=== PATIENT | female | born 1990 | race African-American/Black ===

== ENCOUNTER 2023-04-01 20:21 | Outpatient (REF) | payer OTHER, SELFPAY ==
[2023-04-09 13:08] LABS: Age Gdln ACOG Testing Note (.); HPV Aptima Negative (Negative); IGP, Aptima HPV, rfx 16/18,45 Note (.)
== END 2023-04-01 20:22 | disposition home or self-care (01) ==
LOC: LAB 20:21
PROVIDERS: Visit Provider Obstetrics & Gynecology
DX: Z01.419 Encounter for gynecological examination (general) (routine) without abnormal findings (principal)
CPT/HCPCS: 87624; G0145

== ENCOUNTER 2024-04-06 19:14 | Outpatient (REF) | payer OTHER, SELFPAY | END 2024-04-06 19:15 | disposition home or self-care (01) | LOC: LAB 19:14 | PROVIDERS: Visit Provider Obstetrics & Gynecology | DX: Z01.419 Encounter for gynecological examination (general) (routine) without abnormal findings (principal) | CPT/HCPCS: 87624; 88175 ==

== ENCOUNTER 2025-03-24 14:57 | Outpatient (OUT) | payer OTHER, SELFPAY ==
--- OUTSIDE RECORDS SUMMARY | 2014-11-14 06:30 | XMS_ITS | Continuity of Care Document ---
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 Electrical Engineering Technologist Name Role Phone Yomaira LAUREN Simeon Unavailable Unavailable Procedures Procedure Date IMMUNIZATION ADMIN HEP B VACCINE, ADULT, IM IMMUNIZATION ADMIN HEP B VACCINE, ADULT, IM PREVENTIVE COUNSELING, INDIV IMMUNIZATION ADMIN FLU VAC NO PRSV 4 LUIS 3 YRS+ HEP B VACCINE, ADULT, IM PREVENTIVE COUNSELING, INDIV IMMUNIZATION ADMIN HEP B VACCINE, ADULT, IM HEP B VACCINE, ADULT, IM PREVENTIVE COUNSELING, INDIV IMMUNIZATION ADMIN HEP B VACCINE, ADULT, IM TB INTRADERMAL TEST OFFICE/OUTPATIENT VISIT, EST Contraceptive pills for OFFICE/OUTPATIENT VISIT, EST Contraceptive pills for PREV VISIT, EST, AGE 18-39 SPECIMEN HANDLING THIN PREP PAP W/REFLEX TO ASCUS 009 URINE TEST Contraceptive pills for bc OFFICE/OUTPATIENT VISIT, EST Contraceptive pills for PREV VISIT, NEW, AGE 12-17 URINALYSIS, NONAUTO W/SCOPE SPECIMEN HANDLING Contraceptive pills for bc THIN PREP PAP W/REFLEX TO ASCUS 008 Advance Directives Directive Yes / No Effective Date File Name No Information Encounters Encounter Description Practice Location Reason(s) For Visit Diagnoses Date Provider Providers Copied on Encounter [facility], [address], [place], [id number], [place] tel:[phone] [facility] No Information 5 Viscnelson Freed. [address], [place], [id number], [place]. tel:[phone] PREVENTIVE COUNSELING, [facility] ([place], [place]), [address], [place], [id number], [place] tel:[phone] [facility] Influenza Vaccine 4 Yomaira Freed. [address], [place], [id number], [place]. tel:[phone] PREVENTIVE COUNSELING, [facility] ([place], [place]), [address], [place], [id number], [place] tel:[phone] [facility] No Information 4 Yomaira Freed. [address], [place], [id number], [place]. tel:[phone] PREVENTIVE COUNSELING, [facility] ([place], [place]), [address], [place], [id number], [place] tel:[phone] [facility] Need for prophylactic vaccination and inoculation against viralhepatitis 4 Yomaira Freed. [address], [place], [id number], [place]. tel:[phone] OFFICE/OUTPAT IENT VISIT, [facility], [address], [place], [id number], [place] tel:[phone] [facility] No Information 0 Lamp Martha. [address], [place], [id number], [place]. tel:[phone] OFFICE/OUTPAT IENT VISIT, EST [facility], [address], [place], [id number], [place] tel:[phone] [facility] No Information 2 3-201 0 Visci DO Simeon. [address], [place], [id number], [place]. tel:[phone] PREV VISIT, [facility], AGE 18-39 [facility], [address], [place], [id number], [place] tel:[phone] [facility] No Information 9-200 9 Gomezrobyn SAMANTHA Kelli. [address], [place], [id number]. tel:[phone] OFFICE/OUTPAT IENT VISIT, [facility], [address], [place], [id number], [place] tel:[phone] [facility] No Information 4-200 9 Tyson Montesinos. [address], [place], [id number]. tel:[phone] PREV VISIT, NEW, AGE 12-17 [facility], [address], [place], [id number], [place] tel:[phone] [facility] No Information 8-200 8 No Information Family History Family Member Type Diagnosis Age At Onset No Information Immunizations Vaccine Date Status Comments Hepatitis B, Adult dose administered Sour ce: New Immunization Record Flu (split) (3 yrs or older) administered Note: VIS given. ; Source: New Immunization Record Flu (split) (3 yrs or older) administered Note: VIS given. ; Source: New Immunization Record Flu (split) (3 yrs or older) administered Note: VIS given. ; Source: New Immunization Record Flu (split) (3 yrs or older) administered Note: VIS given. ; Source: New Immunization Record Flu (split) (3 yrs or older) administered Note: VIS given. ; Source: New Immunization Record Flu (split) (3 yrs or older) administered Note: VIS given. ; Source: New Immunization Record Flu (split) (3 yrs or older) administered Note: VIS given. ; Source: New Immunization Record Flu (split) (3 yrs or older) administered Note: VIS given. ; Source: New Immunization Record Flu (split) (3 yrs or older) administered Note: VIS given. ; Source: New Immunization Record Flu (split) (3 yrs or older) administered Note: VIS given. ; Source: New Immunization Record Flu (split) (3 yrs or older) administered Note: VIS given. ; Source: New Immunization Record Flu (split) (3 yrs or older) administered Note: VIS given. ; Source: New Immunization Record Flu (split) (3 yrs or older) administered Note: VIS given. ; Source: New Immunization Record Hep B (adult) administered Note: VIS give n. ; Source: New Immunization Record Hep B (adult) administered Note: Vis give n. ; Source: New Immunization Record Payers Payer name Insurance type Covered republican ID Patsy bell(s) Medical [facility] [id number] [facility] [id number] Medicaid [employer] [id number] Social History Type Description Quantity Date Captured Comments Sex Female Smoking Status No Information Chief Complaint And Reason For Visit No Information Reason For Referral Reason For Referral No Information History Of Present Illness Encounter Date Complaint History Of Prese nt Illness No Information Functional Status Date Functional Assessmen t No Information Instructions Date Instruction Additional Infor mation No Information Assessments Type Assessment Date No Information Patient Care Teams Name Effective Dates (start - stop) Status Members No Information
--- OUTSIDE RECORDS SUMMARY | 2025-03-14 12:00 | XMS_ITS ---
Author Organization [facility] [employer] Address [address] [place] [address] Care Team Providers Care Concrete Floor Installer Name Role Phone Diamond Medel Primary Care Provider REASON FOR VISIT 3 month f/u Medications Medication SIG (Take, Route, Fr equency, Duration) Notes Start Date End Date Status Vyvanse 70 MG 1 capsule in the mor anam Orally Once a day; Duration: 30 days F90.2 03/14/2025 Ac tive metFORMIN HCl 500 MG 1 tablet with a theron l Orally Once a day Active Spironolactone 25 MG 1 tablet Orally Active Encounters Encounter Location Date Provider Diagnosis [facility] [address] [facility] [address] 03/14/2025 Diamond Medel ADHD (attention defi cit hyperactivity disorder), combined type F90.2 and MARKUS (generalized anxiety disorder) F41.1 Assessments Encounter Date Diagnosis (ICD Code) Assessment Notes Treatment Notes Treatment Clinical Notes Section Notes 03/14/2025 ADHD (attention deficit hyperactivity disorder), combined type (ICD-10 - F90.2) . FDA approved stimulant medication for this age group. Discussed/Denies adverse effects from medication including HTN, tachycardia, insomnia, irritability, headache, or decreased appetite. . All relevant and serious adverse effects were discussed. Standard precautions and potential benefits were discussed. Patient/Guardian consented to begin medication/ continue treatment plan . Patient continues to meet criteria for attention deficit hyperactivity disorder. Pt does not meet criteria for bipolar disorder, major depressive disorder, or other persistent mood disorders. Will continue to monitor the patient for presentation of new symptoms or behaviors. . Continue current treatment; tolerating meds well, compliant; call for problems; questions answered satisfactorily, agreeable to treatment plan . GOALS: . Maintain medication regimen _Improve social and interpersonal functioning _Improve attention and or hyperactivity . follow up 3 months . Crisis Intervention plan was discussed and agreed upon. Patient/Guardian will call 911 in case of emergency. Emergency contact information was provided to the patient/guardian. . OARRS reviewed . 03/14/2025 MARKUS (generalized anxiety disorder) (ICD-10 - F41.1) Recommended treatment is: _ FDA approved medication for this age group include Selective Serotonin Reuptake Inhibitors (SSRI) and Selective Norepinephrine Reuptake Inhibitors (SNRI). . Selective serotonin reuptake inhibitors can cause nausea, headache, upset stomach, diarrhea, constipation, anxiety, irritability, and sexual dysfunction. . Please monitor for worsening of symptoms, especially suicidal ideations or morbid thoughts, and call office and or go to the emergency department immediately. Pt does not endorse exhibiting symptoms aligning with zac. . The patient verbalizes understanding with all questions answered thoroughly and is in agreement with treatment plan. . Continue current treatment plan Patient/Guardian will call sooner if symptoms worsen. Patient understands to go to ER if needed if symptoms become severe. Crisis Intervention plan was discussed and agreed upon. Patient/Guardian will call 911 in case of emergency. Emergency contact information was provided to the patient/guardian. Plan Of Treatment Medication Medication Name Sig Start Date Stop Date Notes Vyvanse 70 MG 1 capsule in the mor anam Orally Once a day; Duration: 30 days 03/14/2025 F90.2 busPIRone HCl 15 MG 1 tablet Orally Twice a day Treatment Notes Assessment Notes ADHD (attention deficit hype ractivity disorder), combined type . FDA approved stimulant medication for this age group. Discussed/Denies adverse effects from medication including HTN, tachycardia, insomnia, irritability, headache, or decreased appetite. . All relevant and serious adverse effects were discussed. Standard precautions and potential benefits were discussed. Patient/Guardian consented to begin medication/ continue treatment plan . Patient continues to meet criteria for attention deficit hyperactivity disorder. Pt does not meet criteria for bipolar disorder, major depressive disorder, or other persistent mood disorders. Will continue to monitor the patient for presentation of new symptoms or behaviors. . Continue current treatment; tolerating meds well, compliant; call for problems; questions answered satisfactorily, agreeable to treatment plan . GOALS: . Maintain medication regimen _Improve social and interpersonal functioning _Improve attention and or hyperactivity . follow up 3 months . Crisis Intervention plan was discussed and agreed upon. Patient/Guardian will call 911 in case of emergency. Emergency contact information was provided to the patient/guardian. . OARRS reviewed . MARKUS (generalized anxiety disorder) Recommended treatment is: _ FDA approved medication for this age group include Selective Serotonin Reuptake Inhibitors (SSRI) and Selective Norepinephrine Reuptake Inhibitors (SNRI). . Selective serotonin reuptake inhibitors can cause nausea, headache, upset stomach, diarrhea, constipation, anxiety, irritability, and sexual dysfunction. . Please monitor for worsening of symptoms, especially suicidal ideations or morbid thoughts, and call office and or go to the emergency department immediately. Pt does not endorse exhibiting symptoms aligning with zac. . The patient verbalizes understanding with all questions answered thoroughly and is in agreement with treatment plan. . Continue current treatment plan Patient/Guardian will call sooner if symptoms worsen. Patient understands to go to ER if needed if symptoms become severe. Crisis Intervention plan was discussed and agreed upon. Patient/Guardian will call 911 in case of emergency. Emergency contact information was provided to the patient/guardian. Next Appt Details Follow Up: 3 Months, Reason: Progress Notes * BO MENDEZB:1990 ( 34 yo F)Acc No.[id number]:03/14/2025 Behavioral Health Patient: GALLITO LEMONS Appointment Provider: Natalya Medel :1990 A ge:34 Y S ex:Female Date:03/14/2025 Address:[address] [place], [place] [id number] Subjective: * Chief Complaints: * 3 month f/u * HPI: C onstitutional: . Patient is here for a follow up visit today. . Patient is doing well on current treatment plan. . Stimulant medication continues to significantly improve symptoms of inattention and hyperactivity. Pt is able to maintain mental attention without need for redirection, can multi task, remain organized, and avoid procrastination. Pt is able to remain seated especially when being seated is necessary at home and work, limited fidgetiness, and avoid blurting out and interrupting others. . Pt would like to continue current treatment plan. . Mood is good daily, energy and motivation intact, irritability is not pervasive, sleeps well through the night. . Anxiety symptoms that have significantly improved include having excessive worry and difficulty controlling worry, generalized apprehensive expectation. Symptoms associated include elevated heart rate, restlessness, chest pain, muscle tension in neck and shoulders. Anxiety is not associated with unstable mood episodes. . . Denies suicidal or homicidal ideation or plan. No morbid thoughts. Interpersonal issues discussed. . Support provided. * ROS: C ONSTITUTIONAL: No fever, chills, sweats, weakness SKIN: No jaundice, rash, lesions, petechiae GASTROINTESTINAL: No nausea, vomiting, diarrhea, or GI bleeding MUSCULOSKELETAL: No muscle pain or weakness NEUROLOGIC: No headache, dizziness, numbness, or weakness . * Medical History: * Surgical History: * Hospitalization/Major Diagno stic Procedure: * Medications: T akingmetFORMIN HCl 500 MG Tablet 1 tablet with a meal Orally Once a day Spironolactone 25 MG Tablet 1 tablet Orally busPIRone HCl 15 MG Tablet 1 tablet Orally Twice a day Vyvanse 70 MG Capsule 1 capsule in the morning Orally Once a day , Notes to Pharmacist: F90.2Taking metFORMIN HCl 500 MG Tablet 1 tablet with a meal Orally Once a day Taking Spironolactone 25 MG Tablet 1 tablet Orally Taking busPIRone HCl 15 MG Tablet 1 tablet Orally Twice a day Taking Vyvanse 70 MG Capsule 1 capsule in the morning Orally Once a day , Notes to Pharmacist: F90.2 Objective: * Vitals: * Examination: G eneral Examination: . MENTAL STATUS EXAM: . Appearance: Appropriately dressed and groomed, good eye contact, cooperative, pleasant Behavior/Motor Activity: Normal Gait/Station: Within normal limits Speech: Normal Mood: Good Affect: Full Thought processes/Associations: Logical and goal directed Thought Content: Non-psychotic Cognition/Attention/Memory/Concentration: Alert and oriented x 4; grossly intact attention; memory-recent/remote judged adequate by interviewer Insight: Good Judgement: Good language: Within normal limits Fund of Knowledge: Adequate . . Assessment: * Assessment: 1. A DHD (attention deficit hyperactivity disorder), combined type - F90.2 (Primary) 2 . G AD (generalized anxiety disorder) - F41.1 Plan: * Treatment: 2. G AD (generalized anxiety disorder) Stop busPIRone HCl Tablet, 15 MG, 1 tablet, Orally, Twice a day. Notes: Recommended treatment is: _ FDA approved medication for this age group include Selective Serotonin Reuptake Inhibitors (SSRI) and Selective Norepinephrine Reuptake Inhibitors (SNRI). . Selective serotonin reuptake inhibitors can cause nausea, headache, upset stomach, diarrhea, constipation, anxiety, irritability, and sexual dysfunction. . Please monitor for worsening of symptoms, especially suicidal ideations or morbid thoughts, and call office and or go to the emergency department immediately. Pt does not endorse exhibiting symptoms aligning with zac. . The patient verbalizes understanding with all questions answered thoroughly and is in agreement with treatment plan. . Continue current treatment plan Patient/Guardian will call sooner if symptoms worsen. Patient understands to go to ER if needed if symptoms become severe. Crisis Intervention plan was discussed and agreed upon. Patient/Guardian will call 911 in case of emergency. Emergency contact information was provided to the patient/guardian. * Procedure Codes: * Follow Up: 3 Months * Images: * Sign off status: Completed true * Appointment Provider: Natalya Medel Date: 0 03/14/2025 Generated for Nicole lopez/Jayla/Pauline on: 03/24/2025 10:43 AM EDT History and Physical Notes * Examination Category Sub-Category Detail Notes Category Not es General Examination . MENTAL STATUS EXAM: . Appearance: Appropriately dressed and groomed, good eye contact, cooperative, pleasant Behavior/Motor Activity: Normal Gait/Station: Within normal limits BH Speech: Normal Mood: Good Affect: Full Thought processes/Associations: Logical and goal directed Thought Content: Non-psychotic Cognition/Attention/Memory/Con centration: Alert and oriented x 4; grossly intact attention; memory-recent/remote judged adequate by interviewer Insight: Good Judgement: Good BH language: Within normal limits Fund of Knowledge: Adequate .
--- OUTSIDE RECORDS SUMMARY | 2025-03-16 05:45 | XMS_ITS | Continuity of Care Document ---
Author Organization [facility] Address [address] [place] [address] Phone Care Team Providers Care Housekeeper/Laundry Assistant Name Role Phone Brianne Davila DNP Primary Care Provider Aydee Nieves APRN Attending Provider [phone] Hamlet Worley APRN Attending Provider [phone] NO FAMILY, PHYSICIAN Primary Care Provider Unava ilJanice Dominguez MD Attending Provider [phone] Care Teams Patient Care Team Team Status: Active Member Role Status Dates PHYSICIAN NO FAMILY Primary Care Provider Active Visit Care Team Team Status: Inactive Member Role Status Dates Brianne Davila DNP Primary Care Provider Active Start: February 23, 2025 End: February 23, 2025 Aydee Nieves APRN Attending Provider Active Sta rt: February 23, 2025 End: February 23, 2025 Visit Care Team Team Status: Inactive Member Role Status Dates Hamlet Worley APRN Attending Provider Active Start: March 15, 2025 End: March 15, 2025 PHYSICIAN NO FAMILY Primary Care Provider Active Start: March 15, 2025 End: March 15, 2025 Visit Care Team Team Status: Inactive Member Role Status Dates PHYSICIAN NO FAMILY Primary Care Provider Active Start: March 15, 2025 End: March 15, 2025 Hamlet Worley APRN Attending Provider Active Start: March 15, 2025 End: March 15, 2025 Patient Care Team Team Status: Inactive Member Role Status Dates PHYSICIAN NO FAMILY Primary Care Provider Active Start: March 16, 2025 End: March 16, 2025 Janice Escobar MD Attending Provider Active Start: March 16, 2025 End: March 16, 2025 Chief Complaint and Reason for Visit Chief Complaint Admit Date poss uti February 23, 2025 3:33 pm right middle finger injury March 15 1:34pm T14.90XA March 15, 2025 1:56 pm UC 250 RT MIDDLE FINGER INJURY WX March 012024 9:01am Reason for Visit Admit Date Flank pain February 23, 2025 3:33 pm Finger tendinitis March 15, 2025 1:34 pm Other sprain of right middle finger, ini tial encounter March 16, 2025 9:01am Allergies, Adverse Reactions, Alerts Allergen Type Severity Reaction Last Updated Verified Status minocycline Allergy Unknown Hives March 15, 2025 1:41pm Yes Active sulfamethoxazole Allergy Unknown Hives March 1:41pm Yes Active trimethoprim Allergy Unknown Hives March 15, 2025 1:41pm Yes Active Sulfa (Sulfonamide Antibiotics) Allergy Unknown Unknown Reaction March 15, 2025 1:41pm Yes Active Social History Smoking Status Status Start Date End Date Date of Observa tion Never smoked tobacco (finding) November 10, 2023 10:45pm Observation Status Observation Response Date of Response Legal Sex Female (finding) Sex Assigned At Female November Family History Relationship Condition Age at Onset Recorded Date/T elian mother Anemia Unknown Venous thrombosis Unknown grandparent History of stroke Unknown Hypertension Unknown Problems Active Problems Medical Problem Onset Date Status Comments Right carpal tunnel syndrome Unknown Active UTI (urinary tract infection) Unknown Active Abscess of Bartholin's gland Unknown Active Hematoma of right lower leg Unknown Active Cellulitis of left thigh Unknown Active Hx of hypoglycemia Unknown Active Rectal injury Unknown Active Status post Re ctal injury repair. Jose drain in place Feeling light headed Unknown Active Acne Unknown Active Inflammation Unknown Active Abscess of right genital labia Unknown Active Status post Right Bartholin Gland Excision complicated with Rectal Perforation/Injury. Pyelonephritis Unknown Active Hand paresthesia Unknown Active Obese body habitus Unknown Active Other sprain of right middle finger, initial encounter Unknown Active Inactive/Resolved Problems Medical Problem Onset Date Status Comments Pain Unknown Resolved H/O abdominoplasty Unknown Resolved Surgical wound, non healing Unknown Resolved Acute lumbar myofascial strain Unknown Resolved Medications Medication Status Dose Units Route Directions Qty Days St art Date Stop Date End Date Instructions Adherence Cyclobenzap rine 10 mg tablet Discont inued 10 MG PO Three times daily as needed for Muscle Spasm November 21, 2023 9:37am February 23, 2025 3:37p m Cephalexin (Keflex) 500 mg capsule Discont inued 500 MG PO Three times daily 30 2016 12:00a m [facility]2016 12:00 am [facility] 2016 6:54a m space evenly during waking hours Hydrocodone -Acetaminop hen (Convoy) 5-325 mg tablet Discont inued 1 TAB PO every 6 to 8 hours as needed for pain 20 2016 [facility] 2016 11:17 am Amoxicillin -Pot Clavulanate (Augmentin) 875-125 mg tablet Discont inued 1 TAB PO Twice daily 20 2016 12:00a m [facility]2016 11:17 am Oxycodone-A cetaminophe n (Percocet) 5-325 mg tablet Discont inued 1 TAB PO EVERY 4-6 HOURS as needed for pain 20 2016 12:00a m [facility]2016 11:17 am Etonogestre l (Nexplanon) 68 mg Implant Discont inued 68 IMPLAN T SUBDER MAL Once 2016 12:00a m Aug[facility] 2019 10:32 pm Acetaminoph en (Mapap Extra Strength) 500 mg Tablet Discont inued 1000 MG PO Every 6 hours as needed for Headache 30 2016 12:00a m December 07, 2017 2:03p m Docusate Sodium 100 mg Capsule Discont inued 100 MG PO Daily at bedtime as needed for Constipatio n 30 2016 12:00a m December 29, 2017 4:37p m Metronidazo le 500 mg tablet Discont inued 500 MG PO Twice daily 28 2016 12:00a m [facility] 2016 12:00 am [facility] 2016 12:02 am Cephalexin (Keflex) 500 mg capsule Discont inued 500 MG PO Q8H 42 14 December 29, 2017 12:00a m January 11, 2018 12:00 am January 07, 2018 10:04 am Norgestimat e-Ethinyl Estradiol 0.25-35 mg-mcg tablet Discont inued 1 TAB PO Daily May 01, 2020 12:00a m January 13, 2023 8:43a m Spironolact one 50 mg tablet Discont inued 50 MG PO Daily May 01, 2020 12:00a m March 16, 2025 9:27a m Buspirone 15 mg tablet Discont inued 15 MG PO Twice daily May 01, 2020 12:00a m February 23, 2025 3:37p m Lisdexamfet amine (Vyvanse) 60 mg capsule Discont inued 60 MG PO Daily May 01, 2020 12:00a m March 16, 2025 9:27a m Phentermine (Adipex-P) 37.5 mg Capsule Discont inued 37.5 MG PO daily December 07, 2017 12:00a m January 15, 2019 11:34 am Cephalexin (Keflex) 500 mg capsule Discont inued 1000 MG PO Twice daily 40 10 December 07, 2017 12:00a m 2017 12:00 am December 17, 2017 12:01 am Hydrocodone -Acetaminop hen (Convoy) 5-325 mg tablet Discont inued 1 - 2 TAB PO EVERY 4-6 HOURS as needed for pain December 07, 2017 December 29, 2017 4:37p m Ondansetron (Zofran Odt) 4 mg tablet,disi ntegrating Discont inued 4 MG PO Q8H as needed for nausea and vomiting December 07, 2017 12:00a m December 29, 2017 4:37p m Bupropion Hcl (Wellbutrin Sr) 150 mg tablet sustained-r elease 12 hr Discont inued 300 MG PO Daily January 15, 2019 12:00a m November 10, 2023 10:18 pm Naltrexone 50 mg tablet Discont inued 0.5 TAB PO Daily 2019 1:00am Augus t 2019 10:32 pm Cephalexin 500 mg capsule Discont inued 500 MG PO Twice daily 28 January 13, 2023 12:00a m Febru wanda 2023 1:58p m Cyclobenzap rine 10 mg tablet Discont inued 10 MG PO Three times daily as needed for Muscle Spasm November 10, 2023 12:00a m November 21, 2023 9:37a m Ibuprofen 800 mg tablet Discont inued 800 MG PO Three times daily as needed for Pain November 10, 2023 12:00a m March 16, 2025 9:27a m Semaglutide (Weight Loss) (Wegovy) 0.5 mg/0.5 mL pen injector Discont inued 0.5 MG SUBCUT every week April 29, 2024 12:00a m March 16, 2025 9:27a m administer weeks 5 through 8 of therapy Cephalexin 500 mg capsule Discont inued 500 MG PO Three times daily 21 7 April 29, 2024 12:00a m March 16, 2025 9:27a m Lisdexamfet amine 70 mg capsule Active MG PO March 16, 2025 12:00a m Complies with drug therapy Prednisone 5 mg tablet Active 5 MG PO daily 19 March 16, 2025 12:00a m Take 4 pills by mouth x2 days, take 3 pills by mouth x2 days, take 2 pills by mouth x2 days, take 1 pill by mouth x1 day. Complies with drug therapy Penicillin V Potassium 500 mg tablet Discont inued 500 MG PO Twice daily 20 2023 1:00am November 10, 2023 10:18 pm Cephalexin 500 mg capsule Discont inued 500 MG PO Every 12 hours 20 2023 1:00am November 10, 2023 10:18 pm Immunizations Immunization Event Date Not Given Reason Dose Number Horse Race Timer Lot Number Vaccine Information Statement (VIS) Detail Administration Location Human Papillomavirus Vaccine, quadrivalent September 11, 2009 Human Papillomavirus Vaccine, quadrivalent November 13, 2009 Human Papillomavirus Vaccine, quadrivalent March 21, 2010 Procedures Procedure Date Performed Status XR finger RT 3rd digit March 15, 2025 2:19pm co mpleted Relevant Diagnostic Tests and/or Laboratory Data Laboratory Results Test Collection Date/Time Result Date/Time Result Interpretation Reference Range Result Comment Performing Site Urine Color February 23, 2025 3:40pm February 23, 2025 3:54pm CAM Urine Appearance February 23, 2025 3:40pm February 23, 2025 3:54pm DARK Urine Specific [place] February 23, 2025 3:40pm February 23, 2025 3:54pm 1.020 Urine pH February 23, 2025 3:40pm February 23, 2025 3:54pm 6.0 Urine Leukocyte Esterase February 23, 2025 3:40pm February 23, 2025 3:54pm TRACE Urine Nitrite February 23, 2025 3:40pm February 23, 2025 3:54pm Negative Urine Protein February 23, 2025 3:40pm February 23, 2025 3:54pm 100 Urine Glucose (UA) February 23, 2025 3:40pm February 23, 2025 3:54pm NEGATIVE Urine Ketones February 23, 2025 3:40pm February 23, 2025 3:54pm NEGATIVE Urine Urobilinoge n February 23, 2025 3:40pm February 23, 2025 3:54pm 1.0 Urine Bilirubin February 23, 2025 3:40pm February 23, 2025 3:54pm SMALL Urine Occult Blood February 23, 2025 3:40pm February 23, 2025 3:54pm TRACE Diagnostic Imaging Reports Author Maury Devi [facility] Authored March 15, 2025 2:33 pm Report Dictated Date/Time Dictated By Status Radiology Report March 15, 2025 2:33pm Maury Devi , DO costa [facility] [place] [address] XRay Report Signed Patient: Nan Alcocer MR#: [id number] : 1990 Acct:[id number] Age/Sex: 34 / F ADM Date: 5 Loc: [id number] Room: Type: [facility] Attending Dr: Hamlet Worley APRN Copies to: Hamlet Worley APRN~ Ordering Provider: Hamlet Worley APRN Date of Service: 03/15/25 XR/XR finger RT 3rd digit: T14.90XA - Injury, unspecified, initial encounter 3 views third digit right hand plain film COMPARISON: None HISTORY: Right middle finger injury one month ago. Inability to straighten ACUTE FINDINGS: None DEGENERATIVE CHANGE: Unremarkable SOFT TISSUE FINDINGS: Unremarkable JOINT EFFUSION: None POSTOP CHANGES: None BONY MINERALIZATION: Adequate XR/XR finger RT 3rd digit IMPRESSION: No acute displaced fracture Impression dictated by: Maury Devi M.D. 03/15/2025 2:34 PM Dictation Location: [place] [address] Transcribed By: [facility] 03/15/25 1434 Dictated By: Maury Devi DO 03/15/25 1433 Signed By: <Electronically signed by Maury Devi DO in OV> 03/15/25 143 Vital Signs Vital Reading Result Reference Range Collection Date/Time Body Temperature 100.1 [degF] 97.6-99.0 February 23, 2025 4:23pm Heart Rate 95 /min 60-100 February 23, 2025 3:43pm Oxygen saturation by Pulse oximetry 98 % 95-100 February 23, 2025 3:43 pm BP Systolic 126 mm[Hg] 100-140 February 23, 2025 3:43pm BP Diastolic 80 mm[Hg] 60-100 February 23, 2025 3:43pm Body Temperature 98.8 [degF] 97.6-99.0 March 15, 2025 1:37pm Heart Rate 71 /min 60-100 March 15, 2025 1:37pm Oxygen saturation by Pulse oximetry 99 % 95-100 March 15, 2025 1:37 pm BP Systolic 112 mm[Hg] 100-140 March 15, 2025 1:37pm BP Diastolic 74 mm[Hg] 60-100 March 15, 2025 1:37pm Advance Directives Advance Directive Response Recorded Date/ Time Advance Directives No April 28, 2017 11:41am Insurance Providers Guarantor Nan Alcocer Address [address] [address] Contact Info. Home Phone: Payer Policy Id Subscriber's Name Subscriber Id Effectiv e Date Expiration Date MMO [id number] Nan Alcocer [id number] [place] Ad[employer]age [id number] Nan Alcocer [id number] [employer] [id number] Nan Alcocer [id number] HCAP/HFA/FAP Active [id number] Nan Alcocer [id number] 2019 Encounters Encounter Location(s) Arrival/Admit Date Discharge/Depart Date Provider(s) Departed Physician/Prov ider Office Visit -[facility] [place] February 23, 2025 3:33pm February 23, 2025 4:22pm Kat Taylor APRN Departed Physician/Prov ider Office Visit -[facility] [place] March 15, 2025 1:34pm March 15, 2025 2:50pm Hamlet Worley APRN Departed Clinical -[facility] March 15, 2025 1:56pm March 15, 2025 1:57pm Hamlet Worley APRN Departed Physician/Prov ider Office Visit -[facility] March 16, 2025 9:01am March 16, 2025 9:44am Janice Escobar MD Recent Diagnosis Onset Date Admit Date Flank pain Unknown February 23, 2025 3:33pm Finger tendinitis Unknown March 15 1:34pm Other sprain of right middle finger, initial encounter Unknown March 16, 2025 9:01am Assessments Diagnosis Onset Date Resolution Status Admit Date Flank pain noneactive February 23 3:33pm Finger tendinitis noneactive March 152024 1:34pm Other sprain of right middle finger, initial encounter acute March 012024 9:01am Plan of Treatment Author Hamlet Worley [facility] Authored March 15, 2025 2:51 pm Xray finger unremarkable. [place] ggest follow up with ortho. Injury over one month ago, wore splint previously. Author Yu Mitchell [facility] Authored March 16, 2025 9:44 am Prescription given for oral Prednisone 7 day taper and patient instructed on the use of topical Voltaren Gel and oral NSAIDs. Patient also provided with edema sleeves and order for occupational therapy Author Aydee Nieves [facility] Authored February 23, 2025 10:3 9pm Patient c/o RUQ pain that pedraza s spread to LUQ and across back. She states overall unwell feeling and hot flashes, does not have thermometer. Afebrile on arrival however on exam tactically felt warm and temp was rechecked at 100.1. Patient states she took Tylenol approx 3 hours prior. UA dip in office shows dark, cam colored urine with trace leuks and blood. Given systemic symptoms, CVA tenderness, recommend further eval by ER. C/o pyelonephritis. Patient plans to go to [facility] ER directly from . Patient left in stable condition. Future Tests Future scheduled test information is unavailable Pending Tests Pending diagnostic test information is unavailable Future Visits Future appointment information is unavailable Referrals to Other Providers Referral information is unavailable Future Procedures Future procedure information is unavailable Future Medications Future medication information is unavailable Patient Instructions Patient instructions are unavailable
--- OUTSIDE RECORDS SUMMARY | 2025-03-24 10:44 | XMS_ITS | Encounter Summary ---
Author Organization [facility] Address [address] [place] [address] Care Team Providers Care Grant Coordinator Name Role Phone Brianne Davila INFUSION RN Primary Care Provider Encounter Details Date Type Department Care Team (Late st Contact Info) Description 04/09/2024 Abstract [facility] [address] [address] Darcie Jimenez LPN Social History Tobacco Use Types Packs/Day Years Used Date Smoking Tobacco: Never Smokeless Tobacco: Never Alcohol Use Standard Drinks/Week Comments Yes 0 (1 standard drink = 0.6 oz pur e alcohol) Social Comments No Sex and Gender Information Value Date Recorded Sex Assigned at Female 04/01/2023 9:38 AM EDT Legal Sex Female 6:59 PM EDT Gender Identity Female 04/01/2023 9:38 AM EDT Sexual Orientation Not on file 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
--- OUTSIDE RECORDS SUMMARY | 2025-03-24 10:44 | XMS_ITS | Encounter Summary ---
Author Organization [facility] Address [address] [place] [address] Care Team Providers Care Gun Profiler Name Role Phone Valerio Batres DO Primary Care Provider [phone] Source Comments In the event this information is protected by the Federal Confidentiality of Alcohol and Drug AbusePatient Records regulations: The Federal rules restrict any use of the information to criminally investigate or prosecute any alcohol or drug abuse patient.[facility] Encounter Details Date Type Department Care Team (Late st Contact Info) Description 07/17/2017 Patient Msg Medical Records [address] [place] [address] Provider, [facility] Medical Education Program Social History Tobacco Use Types Packs/Day Years Used Date Smoking Tobacco: Some Days Smokeless Tobacco: Never Alcohol Use Standard Drinks/Week Comments Yes 0 (1 standard drink = 0.6 oz pur e alcohol) 2 drinks per week Comments No Sex and Gender Information Value Date Recorded Sex Assigned at Not on file Legal Sex Female 11:27 AM EDT Gender Identity Not on file Sexual Orientation Not on file documented as of this encounter Plan of Treatment Not on file documented as of this encounter Visit Diagnoses Not on filedocumented in this encounter Care Teams Gun Profiler Relationship Specialty Start Date End Date Valerio Batres DO PCP - General Family Medicine 05/12/17 documented as of this encounter
--- OUTSIDE RECORDS SUMMARY | 2025-03-24 10:44 | XMS_ITS | Encounter Summary ---
Author Organization [facility] Address [address] [place] [address] Care Team Providers Care Film Developing Machine Operator Name Role Phone Brianne Davila DATABASE TECHNICIAN Primary Care Provider Encounter Details Date Type Department Care Team (Late st Contact Info) Description 03/01/2025 Abstract [facility] [address] [facility] [address] [address] Darcie Jimenez LPN Social History Tobacco [...] Industry 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 Job End Date [employer] works at [employer] Not on file Not on file Not on file documented as of this encounter Plan of Treatment Upcoming Encounters Date Type Department Care Team (Late st Contact Info) Description 04/18/2025 11:00 AM EDT Office Visit [facility] [address] [place] [address] Zaki Camacho DO [address] [place], [place] [id number] documented as of this encounter Visit Diagnoses Not on filedocumented in this encounter Care Teams Film Developing Machine Operator Relationship Specialty Start Date End Date Brianne Davila NP PCP - General 04/01/23 documented as of this encounter
--- OUTSIDE RECORDS SUMMARY | 2025-03-24 10:44 | XMS_ITS | Encounter Summary ---
Author Organization [facility] Address [address] 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
--- OUTSIDE RECORDS SUMMARY | 2025-03-24 10:44 | XMS_ITS | Clinical Summary ---
Author Organization [facility] Address [address] [place] [address] Care Team Providers Care Supervisor Accounting Clerks Name Role Phone GiselValerio Timothy DANG Primary Care Provider [phone] Allergies Active Allergy Reactions Criticality Noted Date Comments Sulfamethoxazole-Trimethopr im Hives 05/12/2017 Minocycline Unknown 05/13/2017 develop pseudotumor behind ocular lens Trimethoprim Hives 01/15/2019 Medications ibuprofen (MOTRIN) 600 mg tablet Take 1 tablet by mouth every 6 hours as needed for Pain. 120 tablet 1 05/13/2017 Active lisdexamfetamine dimesylate (VYVANSE ORAL) Take 1 tablet by mouth once daily. Active buPROPion XL (WELLBUTRIN XL) 150 mg 24 hr tablet Take 150 mg by mouth once daily. 04/06/2020 Active busPIRone (BUSPAR) 15 mg tablet Take 15 mg by mouth twice daily. 04/12/2020 Active norgestimate 0.25 mg-ethinyl estradiol 35 mcg (SPRINTEC, ORTHO-CYCLEN) 0.25-35 mg-mcg per tablet Take 1 tablet by mouth once daily. 04/06/2020 Active spironolactone (ALDACTONE) 50 mg tablet Take 50 mg by mouth once daily. 04/10/2020 Active Active Problems Problem Noted Date Diagnosed Date Rectal injury 05/12/2017 Overview (05/12/2017): Added automatically from request for surgery [id number] Social History Tobacco Use Types Packs/Day Years Used Date Smoking Tobacco: Some Days Smokeless Tobacco: Never Alcohol Use Standard Drinks/Week Comments Yes 0 (1 standard drink = 0.6 oz pur e alcohol) 2 drinks per week Area Deprivation Index Answer Date Jean Marie rded National Score (1-100), lower number is lower ri sk 74 03/15/2025 State Score (1-10), lower number is lower risk 6 03/15/2025 Data from: https://www.neighborhoodatlas.medicine.[facility]/. Last address used for calculation [address] 03/15/2025 Comments No Sex and Gender Information Value Date Recorded Sex Assigned at Not on file Legal Sex Female 11:27 AM EDT Gender Identity Not on file Sexual Orientation Not on file Last Filed Vital Signs Vital Sign Reading Time Taken Comments Blood Pressure 118/76 08/11/2017 12:35 PM EST Pulse 75 08/11/2017 12:35 PM EST Temperature 36.7 C (98.1 F) 08/11/2017 12:05 PM EST Respiratory Rate 16 08/11/2017 12:35 PM EST Oxygen Saturation 99% 08/11/2017 12:35 PM EST Inhaled Oxygen Concentration - - Weight 108 kg (238 lb) 09/18/2017 2:16 PM EST Height 172.7 cm (5' 8 ) 09/18/2017 2:16 PM EST Body Mass Index 36.19 09/18/2017 2:16 PM EST Plan of Treatment Health Maintenance Due Date Last Done Comments Anxiety Screening 2008 Depression Screening 2008 HIV Screening 2008 Hepatitis C Screening 2008 DTaP,Tdap,Td Vaccine (1 - Tdap) 2009 Hepatitis B Vaccine (1 of 3 - 19+ 3-dose series) 12/16 Cervical Cancer Screening 12/17/2011 Influenza Vaccine (#1) 2025 Insurance [facility] [employer] Care Teams Supervisor Accounting Clerks Relationship Specialty Start Date End Date Valerio Batres DO PCP - General Family Medicine 05/12/17
--- OUTSIDE RECORDS SUMMARY | 2025-03-24 10:44 | XMS_ITS | Encounter Summary ---
Author Organization [facility] Address [address] [facility] [place] [address] Care Team Providers Care Transmission Design Engineer Name Role Phone Brianne Davila MEDICAL OFFICE TECHNOLOGIST Primary Care Provider [phone] Encounter Details Date Type Department Care Team (Late st Contact Info) Description 01/11/2025 Abstract [facility] 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
--- OUTSIDE RECORDS SUMMARY | 2025-03-24 10:44 | XMS_ITS | Encounter Summary ---
Author Organization [facility] Address [address] [facility] [place] [address] Care Team Providers Care Wash House Supervisor Name Role Phone Brianne Davila NP Primary Care Provider Encounter Details Date Type Department Care Team (Late st Contact Info) Description 03/23/2025 Telephone [facility] OB [address] [place] [phone] Citlalli Contreras MA [address] [place] [place] 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 Pt was called and asked if she had her labs drawn that is required to do every 3 months in order to stay on this medication. Pt stated she didn't and had forgotten. I advised pt in order to get a refill the labs need to be done first and reviewed by doctor to determine a refill. PVU. Lab order was sent out on 03/01/2025 with her order enclosed. Pt states she will try to go tomorrow. Pt states she is in [place] and if she can have them drawn there? I advised pt she can have it drawn anywhere she wants however, they need to know to fax results to our office. And to be aware we do not always get results back in a timely manner from other hospitals. PVU. documented in this encounter Plan of Treatment Upcoming Encounters Date Type Department Care Team (Late st Contact Info) Description 04/18/2025 11:00 AM EDT Office Visit [facility] [address] [place] [id number] Zaki Camacho, DO [address] [place] [address] documented as of this encounter Visit Diagnoses Not on filedocumented in this encounter Care Teams Wash House Supervisor Relationship Specialty Start Date End Date Brianne Davila NP PCP - General 04/01/23 documented as of this encounter
--- OUTSIDE RECORDS SUMMARY | 2025-03-24 10:44 | XMS_ITS | Encounter Summary ---
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
--- OUTSIDE RECORDS SUMMARY | 2025-03-24 10:44 | XMS_ITS | Encounter Summary ---
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
--- OUTSIDE RECORDS SUMMARY | 2025-03-24 10:44 | XMS_ITS | Clinical Summary ---
Author Organization [facility] Address [address] [place] [address] Care Team Providers Care Accounting Officer Name Role Phone Brianne Davila NP Primary Care Provider [phone] Allergies Active Allergy Reactions Criticality Noted Date Comments Minocycline Headache 03/31/2023 Sulfamethoxazole-Trimethoprim Unknown 2022 Trimethoprim Hives 01/15/2019 Medications busPIRone (Buspar) 15 MG tablet Take 7.5 mg by mouth in the morning and 7.5 mg before bedtime. Active ketoconazole (NIZOral) 2 % shampoo Apply topically 2 (two) times a week 3 Active Vyvanse 70 MG capsule Take 70 mg by mouth 1 (one) time each day at the same time 3 Active spironolactone (Aldactone) 25 MG tablet Take by mouth 1 (one) time Active tretinoin (Retin-A) 0.1 % cream Apply 0.1 g topically at bedtime 3 Active metFORMIN XR (Glucophage-XR) 500 MG 24 hr tabletIndications: Irregular menstrual bleeding Take 1 tablet (500 mg) by mouth Daily 30 tablet 11 4 04/01/20 25 Active Levonorgestrel-Eth inyl Estrad (Tyblume) 0.1-20 MG-MCG chewable tabletIndications: Encounter for other general counseling or advice on contraception Chew 1 tablet Daily 28 tablet 11 5 Active Active Problems Problem Noted Date Diagnosed Date Anemia affecting ([facility]) 03/31/2023 Candidiasis 03/31/2023 Cervical strain 03/31/2023 Chronic otitis externa of left ear 03/31/2023 Dichorionic diamniotic twin in second trimester ([facility]) 03/31/2023 Irregular menstrual cycle 03/31/2023 Lumbosacral strain 03/31/2023 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 Myopia of both eyes 03/31/2023 Weight gain Encounters Date Type Department Care Team Description 03/23/20[address] [facility] [address] [place] [address] Citlalli Contreras MA 03/01/2025 Abstract [facility] [address] [place] [address] Darcie Jimenez, GREGG 03/01/[address] [facility] [address] [place] [address] Zaki Camacho, 03/01/2025 Orders Only [facility] [address] [place] [address] Zaki Camacho, Encounter for long-term (current) use of medications 02/04/2025 Abstract [facility] [address] [place] [address] Zaki Camacho, 02/02/20[address] [facility] [address] [place] [address] Zaki Camacho, 01/11/2025 Abstract [facility] [address] [place] [address] Darcie Jimenez, GREGG 01/11/20[address] [facility] [address] [place] [address] Zaki Camacho, 12/30/2024 10:20 AM EDT Office Visit [facility] [address] [place] [address] Zaki Camacho, DO Encounter for other general counseling or advice on contraception 12/30/2024 Bamboo flowsheet [facility] [address] [facility] [place] [address] Zaki Camacho DO 12/30/2024 Travel from Last 3 Months Family History Medical History Relation Name Comments No Known Problems Daughter Hypertension Maternal Grandmother Reid Anemia Mother Cystic fibrosis Other Mother 1st cousin(twins) No Known Problems Son 1 No Known Problems Son 2 Relation Name Status Comments Brother (2) Daughter Alive Father Alive Maternal Grandmother Reid Mother Alive Other Mother 1st cousin(twins) Sister (4) Son 1 Alive Son 2 Alive Social History Tobacco Use Types Packs/Day Years Used Date Smoking Tobacco: Never Smokeless Tobacco: Never Tobacco Cessation:Counseling Given: Not Answered Alcohol Use Standard Drinks/Week Comments Yes 0 (1 standard drink = 0.6 oz pur e alcohol) Social Comments No Sex and Gender Information Value Date Recorded Sex Assigned at Female 04/01/2023 9:38 AM EDT Legal Sex Female 6:59 PM EDT Gender Identity Female 04/01/2023 9:38 AM EDT Sexual Orientation Not on file 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 Industry 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 Job 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 Not on file Not on file Last Filed Vital Signs Vital Sign Reading Time Taken Comments Blood Pressure 120/82 12/30/2024 10:51 AM EDT Pulse - - Temperature - - Respiratory Rate - - Oxygen Saturation - - Inhaled Oxygen Concentration - - Weight 108 kg (239 lb) 12/30/2024 10:51 AM EDT Height 172.7 cm (5' 8 ) 04/06/2024 10:58 AM EDT Body Mass Index 36.34 04/06/2024 10:58 AM EDT Plan of Treatment Upcoming Encounters Date Type Department Care Team (Late st Contact Info) Description 04/18/2025 11:00 AM EDT Office Visit [facility] OB [address] [place] [phone] Zaki Camacho, [address] [place] [address] Insurance [employer] Care Teams Accounting Officer Relationship Specialty Start Date End Date Brianne Davila NP PCP - General 04/01/23
--- OUTSIDE RECORDS SUMMARY | 2025-03-24 10:44 | XMS_ITS | Encounter Summary ---
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 [employer] Not on file Not on file Not on file documented as of this encounter Plan of Treatment Upcoming Encounters Date Type Department Care Team (Late st Contact Info) Description 04/18/2025 11:00 AM EDT Office Visit [facility] OB [address] [place] [address] Zaki Camacho DO [address] [place], [place] [phone] documented as of this encounter Visit Diagnoses Not on filedocumented in this encounter Care Teams Director Of Sports Performance Relationship Specialty Start Date End Date Brianne Davila NP PCP - General 04/01/23 documented as of this encounter
--- OUTSIDE RECORDS SUMMARY | 2025-03-24 10:44 | XMS_ITS | Encounter Summary ---
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
--- OUTSIDE RECORDS SUMMARY | 2025-03-24 10:44 | XMS_ITS | Encounter Summary ---
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 Not on file Not on file documented as of this encounter Plan of Treatment Upcoming Encounters Date Type Department Care Team (Late st Contact Info) Description 04/18/2025 11:00 AM EDT Office Visit [facility] OB [address] [place] [address] Zaki Camacho DO [facility] [address] [place], [place] [id number] documented as of this encounter Visit Diagnoses Not on filedocumented in this encounter Care Teams Storage Center Manager Relationship Specialty Start Date End Date Brianne Davila, TYPESETTER PERFORATOR OPERATOR PCP - General 04/01/23 documented as of this encounter
--- OUTSIDE RECORDS SUMMARY | 2025-03-24 10:44 | XMS_ITS | Patient Health Record ---
Author Organization [facility] es Address [address] [place] [address] Care Team Providers Care Bull Gang Worker Name Role Phone Diamond Medel Primary Care Provider [phone] Allergies Allergen (clinical drug ingredient) Drug/Non Drug Allergy documented on EMR Reaction Allergy Type Onset Date Status sulfamethoxazole / trimethoprim Bactrim rash Drug Allergy Active minocycline Minocycline rash Drug Allergy Act raciel Reason For Referral No Information Medications Medication SIG (Take, Route, Fr equency, Duration) Notes Start Date End Date Status Vyvanse 70 MG 1 capsule in the mor anam Orally Once a day; Duration: 30 days F90.2 03/14/2025 Ac tive metFORMIN HCl 500 MG 1 tablet with a theron l Orally Once a day Active Spironolactone 25 MG 1 tablet Orally Active Social History Tobacco Use: Social History Observation Description Date Details (start date - stop date) Former Smoker NA - NA Tobacco Screen: Question Answer Notes Are you a: former smoker How long has it been since you last smoked? 1-5 years Alcohol Screening: Question Answer Notes Did you have a drink contain ing alcohol in the past year? Yes How often did you have a dri nk containing alcohol in the past year? Monthly or less (1 point) How many drinks did you have on a typical day when you were drinking in the past year? 1 or 2 (0 points) Points 1 Interpretation Negative Problems Problem Type SNOMED Code ICD Code Onset Dates Problem Status W/U Status Risk Notes Problem Attention deficit hyperactivity disorder (678233020) ADHD (attention deficit hyperactivity disorder), combined type (F90.2) Active confirmed Problem Mild episode of recurrent major depressive disorder (F33.0) Active confirmed Problem Generalized anxiety disorder (36100521) MARKUS (generalized anxiety disorder) (F41.1) Active confirmed Vital Signs Heart Rate 90 /min 12/13/2024 Oximetry 98 % 12/13/2024 Blood pressure diastolic 75 mm Hg 12/13/2024 Height 68 in 12/13/2024 Blood pressure systolic 116 mm Hg 12/13/2024 Weight 230.0 lbs 12/13/2024 BMI 34.97 kg/m2 12/13/2024 Encounters Encounter Location Date Provider Diagnosis [place] [address] [place] [address] 04/08/2024 Diamond Medel ADHD (attention defi cit hyperactivity disorder), combined type F90.2 [place] [address] [place] [address] 05/20/2024 Diamond Medel ADHD (attention defi cit hyperactivity disorder), combined type F90.2 [facility] [address] [place] [address] 07/02/2024 Diamond Medel ADHD (attention defi cit hyperactivity disorder), combined type F90.2 [place] [address] [place] [address] 08/03/2024 Diamond Medel ADHD (attention defi cit hyperactivity disorder), combined type F90.2 [facility] [address] [place] [address] 12/01/2024 Diamond Medel ADHD (attention defi cit hyperactivity disorder), combined type F90.2 [place] [address] [place] [address] 01/06/2025 Diamond Medel ADHD (attention defi cit hyperactivity disorder), combined type F90.2 [facility] [address] [place] [address] 09/21/2024 Diamond Medel ADHD (attention defi cit hyperactivity disorder), combined type F90.2 and MARKUS (generalized anxiety disorder) F41.1 [facility] [address] [place] [address] 06/08/2024 Diamond Medel ADHD (attention defi cit hyperactivity disorder), combined type F90.2 and MARKUS (generalized anxiety disorder) F41.1 [facility] [address] [place] [address] 12/13/2024 Diamond Medel ADHD (attention defi cit hyperactivity disorder), combined type F90.2 and MARKUS (generalized anxiety disorder) F41.[address] [address] 03/14/2025 Diamond Medel ADHD (attention defi cit hyperactivity disorder), combined type F90.2 and MARKUS (generalized anxiety disorder) F41.1 Assessments Encounter Date Diagnosis (ICD Code) Assessment Notes Treatment Notes Treatment Clinical Notes Section Notes 06/08/2024 ADHD (attention deficit hyperactivity disorder), combined type [...] to the patient/guardian. . OARRS reviewed . 09/21/2024 ADHD (attention deficit hyperactivity disorder), combined type [...] to the patient/guardian. . OARRS reviewed . 12/13/2024 ADHD (attention deficit hyperactivity disorder), combined type [...] the patient/guardian. . OARRS reviewed . 03/14/2025 ADHD (attention deficit hyperactivity disorder), combined [...] contact information was provided to the patient/guardian. 12/13/2024 MARKUS (generalized anxiety disorder) (ICD-10 - F41.1) 01/06/2025 ADHD (attention deficit hyperactivity disorder), combined type (ICD-10 - F90.2) 09/21/2024 MARKUS (generalized anxiety disorder) (ICD-10 - F41.1) [...] contact information was provided to the patient/guardian. 12/01/2024 ADHD (attention deficit hyperactivity disorder), combined type (ICD-10 - F90.2) 06/08/2024 MARKUS (generalized anxiety disorder) (ICD-10 - F41.1) [...] contact information was provided to the patient/guardian. 07/02/2024 ADHD (attention deficit hyperactivity disorder), combined type (ICD-10 - F90.2) 08/03/2024 ADHD (attention deficit hyperactivity disorder), combined type (ICD-10 - F90.2) 04/08/2024 ADHD (attention deficit hyperactivity disorder), combined type (ICD-10 - F90.2) 05/20/2024 ADHD (attention deficit hyperactivity disorder), combined type (ICD-10 - F90.2) Plan Of Treatment No Information Insurance Providers Payer Name Payer Address Payer Phone Subscriber Number Group Number Insured Name Patient Relationship to Insured Coverage Start Date Coverage End Date MEDICAL [facility] [address] [place] [phone] [id number] GALLITO MENDEZ Self - patient is the insured 5 Medical (General) History Medical History History ICD Code ADHD Mild episode of recurrent major depressi ve disorder F33.0 Surgical History Surgery Date(Month/Year) barthoilin's gland removal kidney stone 2009 cosmetic surgery -liposuction 2021 cosmetic surgery-liposuction, tummy tuck 11/2022
--- OUTSIDE RECORDS SUMMARY | 2025-03-24 10:51 | XMS_ITS | CCD ---
Author Organization [facility] Care Team Providers Care Advertising Executive Name Role Phone Brianne Davila Unavailable REQUEST, DR NONE LISTED Primary Care Unavaila ble JANICE, DR THAKKAR Attending Unavailable JANICE, DR THAKKAR Consulting Unavailable JANICE, DR THAKKAR Admitting Unavailable REQUEST, DR MIN LISTED Primary Care Unavaila ble JANICE, DR THAKKAR Admitting Unavailable JANICE, DR THAKKAR Attending Unavailable JANICE, DR THAKKAR Consulting Unavailable ZIEBER, DR DARIEL Berumen Consulting Unavailable REQUEST, DR MIN LISTED Primary Care Unavaila ble JANICE, DR THAKKAR Admitting Unavailable WEST, DR LEONEL Han Consulting Unavailable JANICE, DR THAKKAR Attending Unavailable JANICE, DR THAKKAR Consulting Unavailable JANICE, DR THAKKAR Admitting Unavailable REQUEST, DR MIN LISTED Primary Care Unavaila ble JANICE, DR THAKKAR Attending Unavailable JANICE, DR THAKKAR Consulting Unavailable REQUEST, DR MIN LISTED Primary Care Unavaila ble JANICE, DR THAKKAR Admitting Unavailable JANICE, DR THAKKAR Attending Unavailable JANICE, DR THAKKAR Consulting Unavailable ZIEBER, DR DARIEL Berumen Consulting Unavailable MITRA Davila Primary Care Provider MD Robert Zhang Attending Provider Brianne Davila Unavailable MITRA Davila Primary Care Provider MD Robert Zhang Attending Provider [phone] SYL More Emergency Provider [phone] Wade Dennis Unavailable MITRA Davila Primary Care Provider MD Robert Zhang Attending Provider [phone] LeodanKarli Unavailable MITRA Davila Primary Care Provider MD Anthony Bond Attending Provider Quintana, Colette Unavailable Lola CHEMICAL PROCESS EQUIPMENT OPERATOR, Brianne Stephens Primary Care Provider ZAKI CAMACHO Attending Unavailable ZAKI CAMACHO Attending Unavailable Lola MANRIQUEZ, Brianne Primary Care Provider Aydee Nieves APRN Attending Provider LEONEL RODRIGUEZ Primary Care Physician [phone] Esperanza Smith Attending Unavailable Irving Thomas Attending Unavailable Irving Thomas Attending Unavailable Hamlet Worley APRN Attending Provider [phone] NO FAMILY, PHYSICIAN Primary Care Provider Unava ilerinn Escobar MD, Janice Berumen Attending Provider Hamlet Worley Attending Unavailable Hamlet Worley Admitting Unavailable NO FAMILY, PHYSICIAN Primary Care Unavailable Allergies Allergy Classification Reported Allergen(s) Allergy Type Date of Onset Reaction(s) Facility Dihydrofolate Reductase Inhibitors (antibiotic) (1 source) Trimethoprim Drug Allergy 05-01-20 20 [facility] Minocycline (1 source) Minocycline Drug Allergy 05-01-20 20 [facility] Sulfonamides (antibiotic) (2 sources) Sulfonamides (Antibiotic) Drug Allergy 05-01-20 20 Unknown Reaction, [facility] (20 sources) Minocycline; Translations: [minocycline] Drug Allergy 12-23-19 22 Unknown, Hives, [facility] (20 sources) Sulfamethoxazole / Trimethoprim; Translations: [sulfamethoxazole-t rimethoprim] Drug Allergy 03-31-20 23 hives, Unknown [facility] Other (1 source) Minocycline Drug Allergy Unknown [facility] Other (1 source) Minocycline Drug Allergy 03-29-20 22 [facility] (2 sources) Sulfamethoxazole / Trimethoprim; Translations: [Bactrim] Drug Allergy 03-29-20 [facility] (12 sources) Sulfamethoxazole; Translations: [sulfamethoxazole] Drug Allergy 12-23-19 [facility] (12 sources) Sulfonamides (Antibiotic); Translations: [Sulfa (Sulfonamide Antibiotics)] Allergy to substance 12-23-19 Unknown Reaction [facility] (15 sources) Trimethoprim; Translations: [trimethoprim] Drug Allergy 01-16-20 19 [facility] (3 sources) Minocycline Drug Allergy 03-31-20 23 Headache [facility] (1 source) Minocycline Drug Allergy 03-15-20 [facility] Medications Current Medications Medication Drug Class(es) Dates Sig (Normalized) Sig (Original) Norgestimate-Ethin yl Estradiol (12 sources) Progestin, Estrogen Start: 05-01-2020 take 1 tablet by mouth once daily Norgestimate-Ethi nyl Estradiol Active 1 TAB PO Daily May 01, 2020 10:32pm Start: 05-01-2020 End: 01-13-2023 take 1 tablet by mouth once daily Norgestimate-Ethinyl Estradiol 0.25-35 mg-mcg tablet Discontinued 1 TAB PO Daily May 01, 2020 12:00am January 13, 2023 8:43am Start: 05-01-2020 End: 01-13-2023 take 1 tablet by mouth once daily Norgestimate-Ethinyl Estradiol Discontinued 1 TAB PO Daily May 01, 2020 12:00am January 13, 2023 8:43am Start: 05-01-2020 End: 01-13-2023 take 1 tablet by mouth once daily Norgestimate-Ethinyl Estradiol Discontinued 1 TAB PO Daily April 30, 2020 11:00pm January 13, 2023 7:43am Start: 05-01-2020 take 1 tablet by fahad th once daily Norgestimate-Ethinyl Estradiol Active 1 TAB PO Daily April 30, 2020 11:00pm Start: 05-01-2020 take 1 tablet by fahad th once daily Norgestimate-Ethinyl Estradiol Active 1 TAB PO Daily May 01, 2020 12:00am fluconazole 150 mg oral tablet (7 sources) Azole Antifungal Start: 11-25-2022 take 1 tablet by mouth once Diflucan 150 MG 1 tablet Orally once for 1 days Oct, Active fluticasone propionate 0.05 mg/actuat metered dose nasal spray (1 source) Corticosteroid Start: 08-18-2022 take 1 spray(s) nasal route twice daily Fluticasone Propionate 50 MCG/ACT 1 spray in each nostril Nasally Twice a day for 14 days Aug, Active ketoconazole 20 mg/ml medicated shampoo (3 sources) Azole Antifungal Start: 06-26-2023 ketoconazole (NIZOral) 2 % shampoo Apply topically 2 (two) times a week 06/26/2023 Active lisdexamfetamine dimesylate 70 mg oral capsule (20 sources) Central Nervous System Stimulant Start: 03-16-2025 Lisdexamfetamine 70 mg capsule Active MG PO March 16, 2025 12:00am Complies with drug therapy Start: 07-28-2023 take 1 capsule by mo [facility] once daily Vyvanse 70 MG capsule Take 70 mg by mouth 1 (one) time each day at the same time 07/28/2023 Active Start: 05-01-2020 End: 03-16-2025 take 1 capsule by mouth once daily Lisdexamfetamine (Vyvanse) 60 mg capsule Discontinued 60 MG PO Daily May 01, 2020 12:00am March 16, 2025 9:27am Vyvanse 40 MG 1 capsule in the morning Active 24 hr metFORMIN hydrochloride 500 mg extended release oral tablet (14 sources) Biguanide Start: 04-06-2024 End: 04-01-2025 take 1 tablet by mouth once daily metFORMIN XR (Glucophage-XR) 500 MG 24 hr tablet Indications: Irregular menstrual bleeding Take 1 tablet (500 mg) by mouth Daily 30 tablet 04/06/2024 04/01/2025 Active take 1 tablet by fahad every twenty-four hours metFORMIN HCl 500 MG 1 tablet with a meal Orally Once a day Active metroNIDAZOLE 500 mg oral tablet (17 sources) Nitroimidazole Antimicrobial Start: 11-14-2022 take 1 tablet by mouth every twelve hours metroNIDAZOLE 500 MG 1 tablet Orally Twice a day for 7 days Oct, Active Start: 05-11-2017 End: 05-25-2017 take 1 tablet by mouth twice daily Metronidazole 500 mg tablet Discontinued 500 MG PO Twice daily 28 14 Graciela 10th, 2017 12:00am May 24, 2017 12:00am May 25, 2017 12:02am ondansetron 4 mg oral tablet (13 sources) Serotonin-3 Receptor Antagonist Start: 08-22-2023 take 1 tablet by mouth every eight hours as needed Ondansetron HCl 4 MG 1 tablet Orally every 8 hours as needed for 7 days Aug, Active Start: 12-07-2017 End: 12-29-2017 take 1 tablet by mouth every eight hours as needed for nausea and vomiting Ondansetron (Zofran Odt) 4 mg tablet,disintegrating Discontinued 4 MG PO Q8H as needed for nausea and vomiting December 07, 2017 12:00am December 29, 2017 4:37pm predniSONE 5 mg oral tablet (1 source) Start: 03-16-2025 Prednisone 5 m g tablet Active 5 MG PO daily 19 March 16, 2025 12:00am Take 4 pills by mouth x2 days, take 3 pills by mouth x2 days, take 2 pills by mouth x2 days, take 1 pill by mouth x1 day. Complies with drug therapy tretinoin 1 mg/ml topical cream (3 sources) Retinoid Start: 03-26-2023 tretinoin (Ret in-A) 0.1 % cream Apply 0.1 g topically at bedtime 03/26/2023 Active Zofran ODT 4 mg Tab-Dis (1 source) Start: 02-23-2025 take 1 tablet by mouth every six hours Zofran ODT 4 mg Tab-Dis 4 mg = 1 tab(s), Oral, q6hr, # 12 tab(s), Refills(s) 0, Pharmacy: [id number], 172.7, cm, 02/23/25 17:35:00 EDT, Height/Length Dosing, 113, kg, 02/23/25 17:35:00 EDT, Weight Dosing Start Date: 02/23/25 Status: Ordered Quantity: 12.0 Unit: tab(s) Repeat number: 1 Completed/Discontinued Medications Medication Drug Class(es) Dates Sig (Normalized) Sig (Original) acetaminophen 500 mg oral tablet (12 sources) Start: 05-11-2017 End: 12-07-2017 Acetaminophen (Mapap Extra Strength) 500 mg Tablet Discontinued 1000 MG PO Every 6 hours as needed for Headache May 11, 2017 12:00am December 07, 2017 2:03pm acetaminophen 325 mg / HYDROcodone bitartrate 5 mg oral tablet (20 sources) Opioid Agonist Start: 12-07-2017 End: 12-29-2017 take 1 tablet by mouth every four to six hours as needed for pain Hydrocodone-Acetami nophen ([place]) 5-325 mg tablet Discontinued 1 - 2 TAB PO EVERY 4-6 HOURS as needed for pain December 07, 2017 December 29, 2017 4:37pm Start: 05-03-2017 End: 05-11-2017 Hydrocodone-Acetaminophen (N orco) 5-325 mg tablet Discontinued 1 TAB PO every 6 to 8 hours as needed for pain May 03, 2017 May 11, 2017 11:17am acetaminophen 325 mg / oxyCODONE hydrochloride 5 mg oral tablet (12 sources) Opioid Agonist Start: 05-04-2017 End: 05-11-2017 take 1 tablet by mouth every four to six hours as needed for pain Oxycodone-Acetaminophen (Percocet) 5-325 mg tablet Discontinued 1 TAB PO EVERY 4-6 HOURS as needed for pain May 04, 2017 12:00am May 11, 2017 11:17am amoxicillin 875 mg oral tablet (3 sources) Penicillin-class Antibacterial Start: 07-08-2023 take 1 tablet by mouth every twelve hours Amoxicillin 875 MG 1 tablet Orally Twice a day for 10 day(s) Jul, Not-Taking/PRN Start: 08-18-2022 take 1 tablet by fahad th every twelve hours Amoxicillin 875 MG 1 tablet Orally every 12 hrs for 10 day(s) Aug, Active amoxicillin 875 mg / clavulanate 125 mg oral tablet (12 sources) Penicillin-class Antibacterial Start: 05-04-2017 End: 05-11-2017 take 1 tablet by mouth twice daily Amoxicillin-Pot Clavulanate (Augmentin) 875-125 mg tablet Discontinued 1 TAB PO Twice daily 20 06May 04, 2017 12:00am May 11, 2017 11:17am 12 hr buPROPion hydrochloride 150 mg extended release oral tablet (20 sources) Aminoketone Start: 01-15-2019 End: 11-10-2023 take 1 tablet by mouth once daily Bupropion Hcl (Wellbutrin Sr) 150 mg tablet sustained-release 12 hr Discontinued 300 MG PO Daily January 15, 2019 12:00am November 10, 2023 10:18pm take 1 tablet by fahad th every twenty-four hours buPROPion HCl ER (XL) 150 MG 1 tablet in the morning Orally Once a day for 30 day(s) Active busPIRone hydrochloride 15 mg oral tablet (20 sources) Start: 05-01-2020 End: 02-23-2025 take 1 tablet by mouth twice daily Buspirone 15 mg tablet Discontinued 15 MG PO Twice daily May 01, 2020 12:00am February 23, 2025 3:37pm take 7.5 mg by mouth in the morn ing busPIRone (Buspar) 15 MG tablet Take 7.5 mg by mouth in the morning and 7.5 mg before bedtime. Active take 1 tablet by mouth every twe lve hours busPIRone HCl 30 MG 1 tablet Orally Twice a day Active cephalexin 500 mg oral capsule (20 sources) Cephalosporin Antibacterial Start: 04-29-2024 End: 03-16-2025 take 1 capsule by mouth three times daily Cephalexin 500 mg capsule Discontinued 500 MG PO Three times daily 21 03April 29, 2024 12:00am March 16, 2025 9:27am Start: 10-29-2023 End: 11-10-2023 take 1 capsule by mouth every twelve hours Cephalexin 500 mg capsule Discontinued 500 MG PO Every 12 hours 20 06October 29, 2023 1:00am November 10, 2023 10:18pm Start: 01-13-2023 End: 10-27-2023 take 1 capsule by mouth twice daily Cephalexin 500 mg capsule Discontinued 500 MG PO Twice daily January 13, 2023 12:00am October 27, 2023 1:58pm Start: 06-06-2021 take 1 tablet by fahad th every twelve hours Cephalexin 500 MG 1 tablet Orally every 12 hrs for 10 day(s) Jun, Active Start: 12-29-2017 End: 01-07-2018 take 1 capsule by mouth every eight hours Cephalexin (Keflex) 500 mg capsule Discontinued 500 MG PO Q8H 42 December 29, 2017 12:00am January 11, 2018 12:00am January 07, 2018 10:04am Start: 12-07-2017 End: 12-17-2017 take 2 capsules by mouth twice daily Cephalexin (Keflex) 500 mg capsule Discontinued 1000 MG PO Twice daily 40 December 07, 2017 12:00am 2017 12:00am December 17, 2017 12:01am Start: 05-03-2017 End: 05-08-2017 take 1 capsule by mouth three times daily Cephalexin (Keflex) 500 mg capsule Discontinued 500 MG PO Three times daily 30 06May 03, 2017 12:00am May 12, 2017 12:00am May 08, 2017 6:54am space evenly during waking hours cyclobenzaprine hydrochloride 10 mg oral tablet (12 sources) Muscle Relaxant Start: 11-10-2023 End: 02-23-2025 take 1 tablet by mouth three times daily as needed for muscle spasms Cyclobenzaprine 10 mg tablet Discontinued 10 MG PO Three times daily as needed for Muscle Spasm November 21, 2023 9:37am February 23, 2025 3:37pm docusate sodium 100 mg oral capsule (12 sources) Start: 05-11-2017 End: 12-29-2017 take 1 capsule by mouth once daily at bedtime as needed for constipation Docusate Sodium 100 mg Capsule Discontinued 100 MG PO Daily at bedtime as needed for Constipation May 11, 2017 12:00am December 29, 2017 4:37pm etonogestrel 68 mg drug implant (12 sources) Progestin Start: 05-08-2017 End: 05-01-2020 Etonogestrel (Nexplanon) 68 mg Implant Discontinued 68 IMPLANT SUBDERMAL Once May 08, 2017 12:00am May 01, 2020 10:32pm Start: 05-08-2017 End: 05-01-2020 Etonogestrel (Nexplanon) 68 mg Implant Discontinued 68 IMPLANT SUBDERMAL Once May 08, 2017 12:00am May 01, 2020 10:32pm ibuprofen 800 mg oral tablet (20 sources) Nonsteroidal Anti-inflammatory Drug Start: 11-10-2023 End: 03-16-2025 take 1 tablet by mouth three times daily as needed for pain Ibuprofen 800 mg tablet Discontinued 800 MG PO Three times daily as needed for Pain November 10, 2023 12:00am March 16, 2025 9:27am Start: 09-08-2019 take 1 tablet by fahad twice daily as needed Ibuprofen 800 MG 1 tablet with food or milk as needed Orally twice daily on a full stomach for 30 days prn Sep, Not-Taking naltrexone hydrochloride 50 mg oral tablet (12 sources) Opioid Antagonist Start: 09-08-2019 End: 05-01-2020 take 1 tablet by mouth once daily Naltrexone 50 mg tablet Discontinued 0.5 TAB PO Daily September 08, 2019 1:00am May 01, 2020 10:32pm Name (5 sources) Name Control Not-Taking penicillin v potassium 500 mg oral tablet (6 sources) Start: 10-27-2023 End: 11-10-2023 take 1 tablet by mouth twice daily Penicillin V Potassium 500 mg tablet Discontinued 500 MG PO Twice daily 20 06October 27, 2023 1:00am November 10, 2023 10:18pm phentermine hydrochloride 37.5 mg oral capsule (12 sources) Sympathomimetic Amine Anorectic Start: 12-07-2017 End: 01-15-2019 take 1 capsule by mouth once daily Phentermine (Adipex-P) 37.5 mg Capsule Discontinued 37.5 MG PO daily December 07, 2017 12:00am January 15, 2019 11:34am Post-OP Shoe/Soft Top Women - (5 sources) Start: 08-21-2020 Post-OP Shoe/Soft Top Women - as directed Aug, Not-Taking Semaglutide (Weight Loss) (5 sources) Start: 04-29-2024 End: 03-16-2025 Semaglutide (Weight Loss) (Wegovy) 0.5 mg/0.5 mL pen injector Discontinued 0.5 MG SUBCUT every week April 29, 2024 12:00am March 16, 2025 9:27am administer weeks 5 through 8 of therapy Start: 04-29-2024 Start: 04-29-2024 Semaglutide (W eight Loss) (Wegovy) 0.5 mg/0.5 mL pen injector Active 0.5 MG SUBCUT every week April 29, 2024 12:00am administer weeks 5 through 8 of therapy Complies with drug therapy Start: 04-29-2024 Semaglutide (W eight Loss) (Wegovy) 0.5 mg/0.5 mL pen injector Active 0.5 MG SUBCUT every week April 29, 2024 12:00am administer weeks 5 through 8 of therapy spironolactone 50 mg oral tablet (20 sources) Aldosterone Antagonist Start: 05-01-2020 End: 03-16-2025 take 1 tablet by mouth once daily Spironolactone 50 mg tablet Discontinued 50 MG PO Daily May 01, 2020 12:00am March 16, 2025 9:27am spironolactone ( Aldactone) 25 MG tablet Take by mouth 1 (one) time Active Problems Active Problems Problem Classification Problem Date Documented Date Episodic/Chronic Abdominal pain (4 sources) Abdominal pain; Translations: [Unspecified abdominal pain] Onset: 02-23-2025 Episodic Anxiety disorders (20 sources) Generalized anxiety disorder; Translations: [Generalized anxiety disorder] Onset: 11-11-2012 Resolved: 04-15-2022 Chronic Attention-deficit, conduct, and disruptive behavior disorders (11 sources) Attention deficit hyperactivity disorder, predominantly inattentive type; Translations: [Attention-deficit hyperactivity disorder, predominantly inattentive type] Chronic Attention-deficit, conduct, and disruptive behavior disorders (2 sources) Attention-deficit hyperactivity disorder, predominantly inattentive type Onset: 04-15-2022 Resolved: 04-15-2022 Chronic Bacterial infection; unspecified site (1 source) Other specified bacterial agents as the cause of diseases classified elsewhere Episodic Calculus of urinary tract (20 sources) Kidney stone; Translations: [Calculus of kidney] Onset: 04-15-2022 Resolved: 04-15-2022 Episodic Complications of surgical procedures or medical care (8 sources) Non-healing surgical wound; Translations: [Other complications of procedures, not elsewhere classified, initial encounter] 02-12-2023 Episodic Conditions associated with dizziness or vertigo (11 sources) Lightheadedness; Translations: [Dizziness and giddiness] 12-22-2021 Episodic Contraceptive and procreative management (2 sources) Patient encounter status; Translations: [Encounter for other general counseling and advice on contraception] 12-30-2024 Episodic Crushing injury or internal injury (12 sources) Injury of rectum; Translations: [Unspecified injury of rectum, initial encounter] 05-10-2017 Episodic Comment on above: Status post Rectal i njury repair. 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 Menstrual disorders (3 sources) Irregular periods; Translations: [Irregular menstruation, unspecified] Onset: 03-31-2023 03-31-2023 Chronic Mood disorders (20 sources) Dysthymia; Translations: [Dysthymic disorder] Chronic Nonmalignant breast conditions (4 sources) Diffuse cystic mastopathy of right breast; Translations: [DIFFUSE CYSTIC MASTOPATHY RT BREAST] Onset: 03-29-2022 Chronic Nonmalignant breast conditions (6 sources) Unspecified lump in the left breast, lower inner quadrant; Translations: [Unspecified lump in the left breast, lower outer quadrant] Onset: 04-04-2022 Episodic Nutritional deficiencies (20 sources) Vitamin D deficiency; Translations: [Vitamin D deficiency, unspecified] Onset: 04-15-2022 Resolved: 04-15-2022 Chronic Other complications of (3 sources) Anemia of ; Translations: [Anemia complicating , unspecified trimester] Onset: 03-31-2023 03-31-2023 Chronic Other connective tissue disease (3 sources) Tendinitis of finger; Translations: [Other enthesopathies, not elsewhere classified] 03-15-2025 Episodic Other ear and sense organ disorders (3 sources) Chronic otitis externa of left external auditory canal; Translations: [Unspecified chronic otitis externa, left ear] Onset: 03-31-2023 03-31-2023 Chronic Other endocrine disorders (14 sources) Hypoglycemia; Translations: [Hypoglycemia, unspecified] Chronic Other endocrine disorders (1 source) Hypoglycemia, unspecified Onset: 12-25-2021 Resolved: 12-25-2021 Chronic Other endocrine disorders (11 sources) Polycystic ovary syndrome; Translations: [Polycystic ovarian syndrome] Chronic Other endocrine disorders (2 sources) Polycystic ovarian syndrome Onset: 04-15-2022 Resolved: 04-15-2022 Chronic Other female genital disorders (4 sources) Abnormal uterine and vaginal bleeding, unspecified; Translations: [ABNORMAL UTERINE VAGINAL BLEED UNS] Onset: 02-06-2022 Chronic Other injuries and conditions due to external causes (1 source) Injury, unspecified, initial encounter; Translations: [Injury, unspecified, initial encounter] Onset: 03-15-2025 Episodic Other nervous system disorders (20 sources) Disturbance of attention; Translations: [Attention and concentration deficit] Chronic Other nervous system disorders (20 sources) Chronic pain; Translations: [Other chronic pain] Chronic Other nervous system disorders (1 source) Attention and concentration deficit Chronic Other nervous system disorders (6 sources) Carpal tunnel syndrome of right wrist; Translations: [Carpal tunnel syndrome, right upper limb] 03-11-2024 Chronic Other nervous system disorders (2 sources) Carpal tunnel syndrome, right upper limb; Translations: [Carpal tunnel syndrome] 03-11-2024 Chronic Other nervous system disorders (12 sources) Paresthesia of hand ; Translations: [Paresthesia of skin] 05-02-2020 Episodic Other nutritional; endocrine; and metabolic disorders (20 sources) Body mass index 30+ - obesity; Translations: [Obesity, unspecified] Chronic Other nutritional; endocrine; and metabolic disorders (8 sources) Obese build; Translations: [Obesity, unspecified] 01-13-2023 Chronic Other nutritional; endocrine; and metabolic disorders (11 sources) H/O: endocrine disorder; Translations: [Personal history of other endocrine, nutritional and metabolic disease] 12-22-2021 Episodic Other nutritional; endocrine; and metabolic disorders (3 sources) Weight increased; Translations: [Abnormal weight gain] 12-14-2024 Episodic Other screening for suspected conditions (not mental disorders or infectious disease) (4 sources) Encounter for screening for malignant neoplasm of cervix; Translations: [ENC SCREENING MALIG NEOPLASM CERV] Onset: 03-26-2022 Episodic Other skin disorders (8 sources) Acne; Translations: [Acne, unspecified] 01-13-2023 Episodic Other upper respiratory infections (5 sources) Acute pharyngitis, unspecified; Translations: [Streptococcal pharyngitis] Episodic Residual codes; unclassified (8 sources) Pain; Translations: [Pain, unspecified] 06-14-2023 Episodic Residual codes; unclassified (4 sources) Inflammatory disorder 01-13-2023 Episodic Skin and subcutaneous tissue infections (4 sources) Cellulitis of left thigh; Translations: [Cellulitis of left lower limb] 04-29-2024 Episodic Spondylosis; intervertebral disc disorders; other back problems (20 sources) Degeneration of lumbar intervertebral disc; Translations: [Other intervertebral disc degeneration, lumbar region] Onset: 04-15-2022 Resolved: 04-15-2022 Chronic Spondylosis; intervertebral disc disorders; other back problems (20 sources) Chronic low back pain; Translations: [Lumbago with sciatica, left side] Episodic Sprains and strains (14 sources) Lower back injury; Translations: [Strain of muscle, fascia and tendon of lower back, initial encounter] Onset: 03-31-2023 11-19-2023 Episodic Superficial injury; contusion (10 sources) Hematoma of right lower leg; Translations: [Contusion of right lower leg, initial encounter] 07-23-2022 Episodic Unclassified (4 sources) Inflammatory disorder; Translations: [Inflammation] 01-13-2023 Urinary tract infections (20 sources) Urinary tract infectious disease; Translations: [Urinary tract infection, site not specified] Onset: 06-06-2021 Resolved: 06-06-2021 Episodic Past or Other Problems Problem Classification Problem Date Documented Date Episodic/Chronic Blindness and vision defects (4 sources) Unspecified visual disturbance; Translations: [Bilateral myopia of eyes] Onset: 07-23-2021 Resolved: 07-23-2021 Episodic Genitourinary symptoms and ill-defined conditions (1 source) Dysuria; Translations: [Dysuria R30.0] Onset: 06-06-2021 Resolved: 06-06-2021 Episodic Hemorrhoids (20 sources) External hemorrhoids; Translations: [Residual hemorrhoidal skin tags] Onset: 11-01-2009 Episodic Mycoses (5 sources) Candidiasis, unspecified; Translations: [Candidiasis] Onset: 03-31-2023 Episodic Other diseases of kidney and ureters (1 source) Disorder of kidney and ureter, unspecified Onset: 07-24-2021 Resolved: 07-24-2021 Episodic Other female genital disorders (1 source) Other specified noninflammatory disorders of vagina; Translations: [OTH SPEC NONINFLAMMATORY D/O VAGINA] Onset: 01-18-2022 Episodic Other and delivery including normal (3 sources) Dichorionic diamniotic twin ; Translations: [Twin , dichorionic/diamnioti c, second trimester] Onset: 03-31-2023 03-31-2023 Episodic Unclassified (1 source) Cough R05.9 Viral infection (2 sources) COVID-19 Onset: 09-07-2021 Resolved: 11-06-2021 Results Test Name Value Interpretation Reference Range Facility X-ray reportOrdered By: Simon Devi on 03-15-2025 Study report [facility] Main [address] [address] XRay Report Signed Patient: Nan Mendez MR#: [id number] : 1990 Acct:[id number] Age/Sex: 34 / F ADM Date: 5 Loc: [id number] Room: Type: [facility] [address] Attending Dr: Hamlet Worley APRN Copies to: [...] Devi M.D. 03/15/2025 2:34 PM Dictation Location: [place] [address] Transcribed By: [facility] 03/15/25 1434 Dictated By: Maury Devi DO 03/15/25 1433 Signed By: 03/15/25 1434 [facility] XR finger RT 3rd digiton XR finger RT 3rd digit [facility] Main [address] [address] XRay Report Signed Patient: Nan Mendez MR#: [id number] : 1990 Acct:[id number] Age/Sex: 34 / F ADM Date: 03/15/25 Loc: [id number] Room: Type: [facility] [address] Attending Dr: Hamlet Worley APRN Copies to: Hamlet Worley APRN Ordering Provider: Hamlet Worley APRN Date of [...] Devi M.D. 03/15/2025 2:34 PM Dictation Location: [place] [address] Transcribed By: [facility] 03/15/25 1434 Dictated By: Maury Devi DO 03/15/25 1433 Signed By: 03/15/25 1434 Normal [facility] C Urineon 02-26-2025 Bacteria identified Cx Nom (U) Microbiology PROCEDURE: Urine Culture [R1] SOURCE: U CleanCatch BODY SITE: COLLECTED DATE/TIME: 02/23/2025 18:00 EDT RECEIVED DATE/TIME: 02/23/2025 18:15 EDT START DATE/TIME: 02/23/2025 18:15 EDT FREE TEXT SOURCE: Luis Goetz, Esperanza Smith M.D., Esperanza Mcintosh AMENDED REPORTS Amended Report [] Verified Date/Time: 02/26/2025 09:14 EDT 4,000 cfu/ml Klebsiella (Enterobacter) aerogenes 1,000 cfu/ml Mixed skin contaminants ID and YOLANDA performed on 4,000 cfu/ml Klebsiella (Enterobacter) aerogenes due to positive blood culture. Final Report Printed to Emergency Dept ([id number]) Result Review. 02/26/2025 CSS SUSCEPTIBILITY RESULTS LEGEND: S=Susceptible, N/R=Not Reported, Blank=Data not available, or drug not advisable or tested, I=Intermediate, ESBL=Extended spectrum beta-lactamase, R=Resistant, TFG=Thymidine-depen dent strain, ALFONSO=Beta-lactamase positive, YOLANDA=mcg/m;(mg/L), S*=Predicted susceptible interp, R*=Predicted resistant interp Entaer Antibiotic YOLANDA Dilutn YOLANDA Interp Ampicillin 16 R* Ampicillin/ <=8/4 R* Sulbactam Cefazolin >16 R Cefepime <=2 S Ceftazidime/ <=8 S Avibactam Ceftriaxone <=1 S Cefuroxime <=4 R* Ciprofloxacin <=0.25 S Ertapenem <=0.5 S Gentamicin <=2 S Levofloxacin <=0.5 S Meropenem <=1 S Nitrofurantoin >64 R Piperacillin/ <=8 S Tazobactam Tetracycline <=4 S Tobramycin <=2 S Trimethoprim/ <=2/38 S Sulfa Performing Locations R1: This test was performed at: [facility], [address] [place] [address], [id number] , [place], [facility] Comment on above: Performed By: #### 2 [id number] #### [facility] [address] [place] [id number] Bacteria identified Cx Nom (U) Microbiology PROCEDURE: Urine Culture [R1] SOURCE: U CleanCatch BODY SITE: COLLECTED DATE/TIME: 02/23/2025 18:00 EDT RECEIVED DATE/TIME: 02/23/2025 18:15 EDT START DATE/TIME: 02/23/2025 18:15 EDT FREE TEXT SOURCE: Luis Goetz, Esperanza Smith M.D., Esperanza Mcintosh AMENDED REPORTS Amended Report [] Verified Date/Time: 02/25/2025 12:55 EDT 4,000 cfu/ml Gram Negative [employer] species 1,000 cfu/ml Mixed skin contaminants SUSCEPTIBILITY RESULTS LEGEND: S=Susceptible, N/R=Not Reported, Blank=Data not available, or drug not advisable or tested, I=Intermediate, ESBL=Extended spectrum beta-lactamase, R=Resistant, TFG=Thymidine-depen dent strain, ALFONSO=Beta-lactamase positive, YOLANDA=mcg/m;(mg/L), S*=Predicted susceptible interp, R*=Predicted resistant interp Entaer Antibiotic YOLANDA Dilutn YOLANDA Interp Ampicillin 16 R* Ampicillin/ <=8/4 R* Sulbactam Cefazolin >16 R Cefepime <=2 S Ceftazidime/ <=8 S Avibactam Ceftriaxone <=1 S Cefuroxime <=4 R* Ciprofloxacin <=0.25 S Ertapenem <=0.5 S Gentamicin <=2 S Levofloxacin <=0.5 S Meropenem <=1 S Nitrofurantoin >64 R Piperacillin/ <=8 S Tazobactam Tetracycline <=4 S Tobramycin <=2 S Trimethoprim/ <=2/38 S Sulfa Performing Locations R1: This test was performed at: [facility], [address] [place] [address], [address] [place] [address], [facility] Comment on above: Performed By: #### 2 [id number] #### [facility] [address] [place] [address] C Urineon 02-25-2025 Bacteria identified Cx Nom (U) Microbiology PROCEDURE: Urine Culture [R1] SOURCE: U CleanCatch BODY SITE: COLLECTED DATE/TIME: 02/23/2025 18:00 EDT RECEIVED DATE/TIME: 02/23/2025 18:15 EDT START DATE/TIME: 02/23/2025 18:15 EDT FREE TEXT SOURCE: Luis Goetz, Esperanza Smith M.D., Esperanza Mcintosh AMENDED REPORTS Amended Report [] Verified Date/Time: 02/25/2025 12:55 EDT 4,000 cfu/ml Gram Negative [employer] species 1,000 cfu/ml Mixed skin contaminants Performing Locations R1: This test was performed at: [facility], [address] [place] [address], [address] [place] [address], [facility] Comment on above: Performed By: #### 2 [id number] #### [facility] [address] [place] [address] Bacteria identified Cx Nom (U) Microbiology PROCEDURE: Urine Culture [R1] SOURCE: U CleanCatch BODY SITE: COLLECTED DATE/TIME: 02/23/2025 18:00 EDT RECEIVED DATE/TIME: 02/23/2025 18:15 EDT START DATE/TIME: 02/23/2025 18:15 EDT FREE TEXT SOURCE: Luis Goetz, Esperanza Smith M.D., Esperanza Mcintosh FINAL REPORTS Final Report [] Verified Date/Time: 02/25/2025 10:42 EDT 5,000 cfu/ml Mixed skin contaminants Performing Locations R1: This test was performed at: [facility], [address] [place] [address], [id number]- , [place], Normal [facility] Comment on above: Performed By: #### 2 [id number] #### [facility] [address] [place] [address] Abdomen/Pelvis w/o Contra ston 02-24-2025 CT Abdomen/Pelvis w/o Contrast Exam Date/Time: 02/23/2025 18:23 EDT Reason for Exam: ABDOMINAL PAIN, ACUTE, NONLOCALIZED;Other (please specify) Report IMPRESSION: Punctate nonobstructing left renal calculi. HISTORY: Abdominal pain. Epigastric pain. Dark urine. Incontinence. History of kidney stones. TECHNIQUE: Non-IV contrast imaging of the abdomen and pelvis was performed. Unenhanced imaging is limited for the evaluation of some intra-abdominal and pelvic pathology. Unless otherwise stated, incidental findings in this report do not require further routine follow-up imaging. All CT scans at this facility use dose modulation, iterative reconstruction, and/or weight based dosing when appropriate to reduce radiation dose to as low as reasonably achievable. COMPARISON: None. RESULT: Liver: Unremarkable. Biliary: Gallbladder unremarkable. Pancreas: Unremarkable. Spleen: No splenomegaly. Adrenals: No mass. Kidneys and urinary tract: Two punctate 1-2 mm calculi left upper pole. No other distinct urinary tract calculi. No hydronephrosis. No suspicious lesions of the unenhanced kidneys. Bladder decompressed. GI Tract: No bowel dilation. Some short segments of possible small bowel small bowel intussusception, likely incidental finding secondary to peristalsis. No evidence for appendicitis or diverticulitis. Lymph Nodes: No lymphadenopathy. Mesentery/peritoneu m/retroperitoneum: No ascites or mass. Vasculature: No abdominal aortic or iliac artery aneurysm. Pelvis: No significant free fluid. Uterus retroverted, otherwise grossly unremarkable. Report Bones/Soft Tissues: No acute osseous findings. Degenerative changes in the spine with severe disc height loss at L5-S1. Small areas of ill-defined subcutaneous stranding/edema. No loculated collection. Lower thorax: Unremarkable. Tech Comments: Rectal Contrast Given? No Ordering Provider: Esperanza Smith FINAL REPORT Dictated: 02/24/2025 8:09 am Keo Frey MD Signed (Electronic Signature): 02/24/2025 8:09 am Signed by: Keo Frey MD Transcribed by: SIMONE Technologist: JESUS Jaramillo [facility] BMPon 02-23-2025 Anion gap [Moles/Vol] 17 mmol/L High 6-16 [facility] Comment on above: Performed By: #### 2 [id number] #### [facility] [address] [place] [address] BUN/Creat Ratio 8 No Units Low 10-20 [facility] Comment on above: Performed By: #### 2 [id number] #### [facility] [address] [place] [address] Calcium [Mass/Vol] 9.4 mg/dL Normal 8.9-11.1 [facility] Comment on above: Performed By: #### 2 [id number] #### [facility] [address] [place] [address] Chloride [Moles/Vol] 98 mmol/L Low 101-111 [facility] Comment on above: Performed By: #### 2 [id number] #### [facility] [address] [place] [address] CO2 [Moles/Vol] 20 mmol/L Low 21-31 [facility] Comment on above: Performed By: #### 2 [id number] #### [facility] [address] [place] [address] Creatinine [Mass/Vol] 0.9 mg/dL Normal 0.5-1.3 [facility] Comment on above: Performed By: #### 2 [id number] #### [facility] [address] [place] [address] Glucose [Mass/Vol] 95 mg/dL Normal 55-199 [facility] Comment on above: Performed By: #### 2 [id number] #### [facility] [address] [place] [address] Potassium [Moles/Vol] 3.7 mmol/L Normal 3.5-5.[address] [facility] Comment on above: Performed By: #### 2 [id number] #### [facility] [address] [place] [address] Sodium [Moles/Vol] 131 mmol/L Low 135-145 [facility] Comment on above: Performed By: #### 2 [id number] #### [facility] [address] [place] [address] Urea nitrogen [Mass/Vol] 7 mg/dL Normal 5-21 [facility] Comment on above: Performed By: #### 2 [id number] #### [facility] [address] [place] [address] CBC w/ Auto Diffon 5 Basophil Absolute 0.0 E9/L Normal 0.0-0.2 [facility] Comment on above: Performed By: #### 2 [id number] #### [facility] [address] [place] [address] Basophils/100 WBC (Bld) 0.1 % Normal 0.0-2.0 [facility] Comment on above: Performed By: #### 2 [id number] #### [facility] [address] [place] [address] Eos Absolute 0.0 E9/L Normal 0.0-0.5 [facility] Comment on above: Performed By: #### 2 [id number] #### [facility] [address] [place] [address] Eosinophils/100 WBC (Bld) 0.0 % Normal 0.0-8.0 [facility] Comment on above: Performed By: #### 2 [id number] #### [facility] [address] [place] [address] Erythrocyte distribution width (RBC) [Ratio] 13.1 % Normal 10.9-14.2 [facility] Comment on above: Performed By: #### 2 [id number] #### [facility] [address] [place] [address] Hematocrit (Bld) [Volume fraction] 46.0 % Normal 34.0-46.0 [facility] Comment on above: Performed By: #### 2 [id number] #### [facility] [address] [place] [address] Hemoglobin (Bld) [Mass/Vol] 15.5 g/dL Normal 12.0-16.0 [facility] Comment on above: Performed By: #### 2 [id number] #### [facility] [address] [place] [address] Lymph Absolute 1.3 E9/L Normal 1.0-4.0 [place] Comment on above: Performed By: #### 2 [id number] #### [facility] [address] [place] [address] Lymphocytes/100 WBC (Bld) 9.2 % Low 14.0-50.0 [facility] Comment on above: Performed By: #### 2 [id number] #### [facility] [address] [place] [address] MCH (RBC) [Entitic mass] 27.5 pg Normal 27.0-34.0 [facility] Comment on above: Performed By: #### 2 [id number] #### [facility] [address] [place] [address] MCHC (RBC) [Mass/Vol] 33.7 g/dL Normal 31.4-36.0 [facility] Comment on above: Performed By: #### 2 [id number] #### [facility] [address] [place] [address] MCV (RBC) [Entitic vol] 81.7 fL Normal 80.0-100.0 [facility] Comment on above: Performed By: #### 2 [id number] #### [facility] [address] [place] [address] [place] Absolute 1.1 E9/L High 0.2-1.0 [facility] Comment on above: Performed By: #### 2 [id number] #### [facility] [address] [place] [address] Monocytes/100 WBC (Bld) 7.9 % Normal 4.0-14.0 [facility] Comment on above: Performed By: #### 2 [id number] #### [facility] [address] [place] [address] Neutro Absolute 11.6 E9/L High 2.0-7.5 [facility] Comment on above: Performed By: #### 2 [id number] #### [facility] [address] [place] [address] Neutro Auto 82.8 % High 36.0-75.0 [facility] Comment on above: Performed By: #### 2 [id number] #### [facility] [address] [place] [address] Platelet 245.0 E9/L Normal 150.0-500.0 [facility] Comment on above: Performed By: #### 2 [id number] #### [facility] [address] [place] [address] Platelet mean volume (Bld) [Entitic vol] 8.2 fL Normal 6.4-10.8 [facility] Comment on above: Performed By: #### 2 [id number] #### [facility] [address] [place] [address] RBC 5.6 E12/L Normal 4.3-5.9 [facility] Comment on above: Performed By: #### 2 [id number] #### [facility] [address] [place] [address] WBC 14.0 E9/L High 4.0-11.0 [facility] Comment on above: Performed By: #### 2 [id number] #### [facility] [address] [place] [address] CHEMISTRYOrdered By: SYSTEM SYSTEM on 02-23-2025 Albumin [Mass/Vol] 4.2 g/dL Normal 3.3 - 5.0 gm/dL Remisol Chem Albumin/Globulin [Mass ratio] 1.2 {ratio} Normal 1.1 - 2.2 Remisol Chem ALP [Catalytic activity/Vol] 68 [iU]/d Normal 21 - 98 Int._Unit/L Remisol Chem ALT No additional P-5'-P [Catalytic activity/Vol] 11 [iU]/d Normal 6 - 46 Int._Unit/L Remisol Chem Anion gap [Moles/Vol] 17 mmol/L High 6 - 16 mEq/L R emisol Chem AST [Catalytic activity/Vol] 14 [iU]/d Normal 5 - 43 Int._Unit/L Remisol Chem Bilirubin [Mass/Vol] 0.6 mg/dL Normal 0.0 - 1 .1 mg/dL Rem[facility] Chem Bilirubin.direct [Mass/Vol] 0.1 mg/dL Normal 0.0 - 0.4 mg/dL Remisol Chem Bilirubin.indirect [Mass or moles/Vol] 0.5 mg/dL Normal 0.1 - 0.9 mg/dL [facility] Calcium [Mass/Vol] 9.4 mg/dL Normal 8.9 - 11. 1 mg/dL [facility] Chloride [Moles/Vol] 98 mmol/L Low 101 - 1 11 mmol/L [facility] CO2 [Moles/Vol] 20 mmol/L Low 21 - 31 mmol/L [facility] Creatinine [Mass/Vol] 0.9 mg/dL Normal 0.5 - 1.3 mg/dL [facility] GFR/1.73 sq M.predicted MDRD (S/P/Bld) [Vol rate/Area] 86 mL/min/1.73 m2 Normal >=59mL/min/1 .73 m2 [facility] Globulin (S) [Mass/Vol] 3.6 g/dL Normal 1.4 - 4.0 gm/dL [facility] Glucose [Mass/Vol] 95 mg/dL Normal 55 - 199 mg/dL [facility] Lactate [Moles/Vol] 1.5 mmol/L Normal 0.5 - 2. 2 mmol/L [facility] Lipase [Catalytic activity/Vol] 15 U/L Normal 13 - 58 unit/L [facility] Potassium [Moles/Vol] 3.7 mmol/L Normal 3.5 - 5.3 mmol/L [facility] Protein [Mass/Vol] 7.8 g/dL Normal 6.0 - 7.8 gm/dL [facility] Sodium [Moles/Vol] 131 mmol/L Low 135 - 145 mmol/L [facility] Urea nitrogen [Mass/Vol] 7 mg/dL Normal 5 - 21 mg/dL [facility] Chem Urea nitrogen/Creatinine [Mass ratio] 8 mg/mg Low 10 - 20 Rem[facility] COAGULATIONOrdered By: Devi Mccullough on 02-23-2025 aPTT Coag (PPP) [Time] 28.8 s Normal 25.1 - 36.5 second(s) [facility] Comment on above: Interpretive Data: Josselyn bernard 15 days - 4 weeks 1 - 5 months 6 - 11 months 1 - 5 years 6 - 10 years 11 - 17 years PTT Mean: 35.4 (27.6-45.6) Mean: 33.5 (24.8-40.7) Mean: 32.4 (25.1-40.7) Mean: 31.6 (24.0-39.2) Mean: 31.6 (26.9-38.7) Mean: 31.0 (24.6-38.4) Pediatric Reference ranges were obtained from a study by Lauri Alexandra et al. prepared from 1437 samples obtained at 7 different centers using the same coagulation reagent and instrumentation as [facility]. Currently there are no coagulation studies available worldwide for children to 14 days, and no normal ranges. Heparin therapeutic range (represented by Anti-Factor Xa activity of 0.2 - 0.4 U/mL) corresponds to PTT of 56.6 - 109.0 sec. INR Coag (PPP) [Relative time] 1.04 {INR} Invalid Interpretation Code [facility] Comment on above: Interpretive Data: I NR results are specifically intended to assess patients stabilized on long-term Anticoagulation therapy suggested INR s Less Intensive Anticoagulation 2.0 3.0 Conventional Range 3.0 4.5 PT Coag (PPP) [Time] 11.7 s Normal 9.4 - 1 2.5 second(s) [facility] Comment on above: Interpretive Data: 1 5 days - 4 weeks 1 - 5 months 6 -11 months 1 5 years 6 10 years 11 -17 years Mean: 11.2 (9.5 12.6) Mean: 11.0 (9.7 12.8) Mean: 11.0 (9.8 13.0) Mean: 11.3 (9.9 13.4) Mean: 11.7 (10.0 14.6) Mean: 11.8 (10.0 - 14.1) Pediatric Reference ranges were obtained from a study by guillermo Gonzalez al. prepared from 1437 samples obtained at 7 different centers using the same coagulation reagent and instrumentation as [facility]. Currently there are no coagulation studies available worldwide for children to 14 days, and no normal ranges. ED Clinical Summaryon 2024 ED Clinical Summary ED Clinical Summary [place] [id number] ED Clinical Summary Person Information Name: NAN MENDEZ Bhavya/[facility] Age: 34 Years : 1990 Sex: Female Language: Sinhala PCP: LEONEL RODRIGUEZ MD Marital Status: Single Phone: [phone] Visit Id: Visit Reason: Body aches; Back pain; Fever; Dysuria; POSS KIDNEY INFECTION Speciality: Acuity: 3 Enc Type: Emergency Med Service: Emergency Arrival: 02/23/2025 17:25:43 Discharge: 02/23/2025 20:49:26 LOS: 000 03:24 Checkin: 02/23/2025 17:25:43 Checkout: 02/23/2025 20:49:26 Dispo Type: Home (Routine DC) EVENTS: Event Name Event Status Request Date/Time Start Date/Time Complete Date/Time Arrive Complete 02/23/2025 17:25:43 02/23/2025 17:25:43 02/23/2025 17:25:43 Document Home Meds Request 02/23/2025 17:25:43 Triage Complete 02/23/2025 17:25:43 02/23/2025 17:35:28 02/23/2025 17:35:28 Bed Assign Complete 02/23/2025 17:28:04 02/23/2025 17:28:04 02/23/2025 17:28:04 Dr Exam Complete 02/23/2025 17:28:04 02/23/2025 17:28:22 02/23/2025 17:28:22 RN Exam Complete 02/23/2025 17:28:04 02/23/2025 18:08:36 02/23/2025 18:08:36 Registration Complete 02/23/2025 17:28:22 02/23/2025 17:31:57 02/23/2025 17:31:57 Reg Complete Request 02/23/2025 17:31:57 Reg Bed Request Complete 02/23/2025 17:31:57 02/23/2025 17:31:57 02/23/2025 17:31:57 CT Complete 02/23/2025 17:37:48 02/23/2025 18:13:10 02/23/2025 18:23:20 Meds Admin Complete 02/23/2025 17:37:48 02/23/2025 18:06:03 Pending Labs Inlab 02/23/2025 17:37:48 Lab Inlab 02/23/2025 17:37:48 Urine Collect Complete 02/23/2025 17:37:48 02/23/2025 18:12:24 Pending Labs Complete 02/23/2025 17:38:28 02/23/2025 19:35:24 Lab Complete 02/23/2025 17:38:28 02/23/2025 19:35:24 Pending Labs Complete 02/23/2025 18:03:23 02/23/2025 18:03:23 02/23/2025 18:31:11 Lab Complete 02/23/2025 18:03:23 02/23/2025 18:03:23 02/23/2025 18:31:11 Pending Labs Complete 02/23/2025 18:04:25 02/23/2025 18:04:25 02/23/2025 18:04:25 Pending Labs Inlab 02/23/2025 18:14:13 02/23/2025 18:14:13 Lab Inlab 02/23/2025 18:14:13 02/23/2025 18:14:13 Meds Admin Complete 02/23/2025 19:16:30 02/23/2025 19:42:55 Dr Exam Complete 02/23/2025 19:17:28 02/23/2025 19:17:28 02/23/2025 19:17:28 Registration Complete 02/23/2025 19:17:28 02/23/2025 19:21:32 02/23/2025 19:21:32 Meds Admin Complete 02/23/2025 19:19:33 02/23/2025 19:49:48 Discharge Complete 02/23/2025 20:30:31 02/23/2025 20:49:36 02/23/2025 20:49:36 Transfer Complete 02/23/2025 20:49:36 02/23/2025 20:49:36 02/23/2025 20:49:36 ADDRESS: [address] [place] [address] [place] [id number] PHYS DOC NOTES: Addendum by Irving Thomas DO on February 23, 2025 20:31:04 EDT MEDICAL INFORMATION: Prescriptions Given: New Medications [facility], [address] [facility] [place] [id number], [phone] cephalexin (Keflex 500 mg Cap) 1 Capsules By Mouth 3 times a day for 7 Days. Refills: 0. ondansetron (Zofran ODT 4 mg Tab-Dis) 1 Tablets By Mouth every 6 hours. Refills: 0. PATIENT EDUCATION INFORMATION: Instructions: Urinary Tract Infection, Adult, [id number] Follow up: With: Address: When: LEONEL RODRIGUEZ [address] [place] [address] Business (1) In 3 days 02/26/2025 Comments: Take the antibiotics as prescribed you have completed the course. You can use the Zofran every 6 hours as needed for nausea and vomiting. Please follow-up with your primary care doctor for further evaluation management. Please return the ED for any new or worsening symptoms. DIAGNOSIS: 1:Flank pain; 2:Urinary tract infection Normal [facility] ED Note-Physicianon 02-24-20 ED Note-Physician ED Note-Physician Basic Information Time Seen: Esperanza Smith M.D. 02/23/2025 17:28 Chief Complaint pt states yesterday she had epigastric pain and now has been having pain wrap around her abdomen and dark urine. pt states she has incontinence, no vomiting but has been having fevers, no urinary burning, has hx of kidney stone. was seen at urgent care History of Present Illness The patient is a 34-year-old female who presented to the emergency room with her mother for possible kidney infection. The patient states since yesterday she has been having some urinary urgency. The patient states she started having epigastric abdominal pain and now the pain is on both sides to the back/flank. The patient denies any lower back pain. The patient states she has history of kidney stones in the past. The patient states her urine is dark. The patient reports some chills. The patient reports sweating.She reports generalized body ache. She had temperature of 100.4. The patient denies any cough. She denies any blood in urine. She went to urgent care and they sent her to the emergency room. The patient denies any nausea, denies any vomiting. The patient denies any chest pain. Denies any shortness of breath. The patient denies any other associated symptoms. Review of Systems Additional ROS info: Except as noted in the above Review of Systems and in the History of Present Illness all other systems have been reviewed and are negative or noncontributory. Physical Exam Vitals & Measurements T: 37.5 ???C(Oral) HR: 97(Monitored) RR: 18 BP: 110/63 SpO2: 99% HT: 172.72 cm WT: 113 kg BMI: 37.88 General: alert, no acute distress Skin: warm, moist Head: no trauma, normocephalic Neck: Trachea midline, no tenderness, supple Eye: normal conjunctiva, sclera clear, EOMI, vision unchanged ENMT: Oral mucosa moist, no pharyngeal erythema or exudate Cardiovascular: regular rate and rhythm Gastrointestinal: soft, non distended, mild epigastric tenderness, no guarding Back: Mild CVA tenderness on the left Extremities: no deformity, no trauma Neurological: Alert and oriented, speech normal, no focal neuro deficits Psychiatric: cooperative, affect appropriate for age Medical Decision Making MEDICAL DECISION MAKING Number and Complexity of Problems Differential Diagnosis: [] [facility] Data External documents reviewed: [] My EKG interpretation: [] My CT interpretation: [] My X-ray interpretation: [] My Ultrasound interpretation: [] Decision rules/scores evaluated: [] Discussed with: [] Treatment and Disposition ED Course: The patient presented with bilateral side/flank pain and some urgency with urination. Blood work reviewed. Her white count is elevated. The urine shows elements of infection. The CT of the abdomen and pelvis shows a 3.5 mm stone on the left kidney nonobstructive. No hydronephrosis. The lactic acid is normal. The patient was given IV fluids and Rocephin. She was given Toradol for pain. The care of the patient was transitioned to Dr. Thomas upon shift change to follow-up with reevaluation and final disposition. Shared decision making: [] Code status: [] Assessment/Plan 1. Flank pain (R10.9: Unspecified abdominal pain) 2. Urinary tract infection (N39.0: Urinary tract infection, site not specified) Orders: ceftriaxone + Sodium Chloride 0.9% intravenous solution 50 mL, 1,000 mg = 1 EA, IV Piggyback, Once, Stop date 02/23/25 19:19:00 EDT, STAT, Start date 02/23/25 19:19:00 EDT, 100 mL/hr, Infuse over 30 minute(s), 02/23/25 19:19:00 EDT ketorolac, 30 mg = 1 mL, Injection, IV Push, Once, Stop date 02/23/25 19:16:00 EDT, STAT, Start date 02/23/25 19:16:00 EDT, 02/23/25 19:16:00 EDT Sodium Chloride 0.9% intravenous solution, 1,000 mL, Soln-IV, IV, Once, Stop date 02/23/25 17:36:00 EDT, STAT, Start date 02/23/25 17:36:00 EDT, Infuse over 61, minute(s) Basic Metabolic Panel Blood Culture Charcoal Blood Culture Charcoal CBC w/ Auto Diff CT Abdomen/Pelvis w/o Contrast eGFR Extra SST Tube Hepatic Function Panel Lactic Acid Lipase Level PT & PTT Rapid COVID Antigen ([facility]) U Beta Hcg Qual UA with Cult Rflx Urine Culture Medications Administered Given NS 1000 ml Bolus, 1000 mL, IV Disposition Plan Discharge Prescription List Prescriptions No active prescription medications Follow-up No qualifying data available Problem List/Past Medical History Ongoing No qualifying data Historical No qualifying data Medications Inpatient ceftriaxone additive + Sodium Chloride 0.9% intravenous solution 50 mL ketorolac 30 mg/mL Inj 1 mL, 30 mg= 1 mL, IV Push, Once Home No active home medications Allergies Bactrim (Rash) minocycline (Rash) Social History Alcohol - Denies Alcohol Use, 02/23/2025 Substance Abuse - Denies Substance Abuse, 02/23/2025 Tobacco - Denies Tobacco Use, 02/23/2025 Lab Results WBC: 14 E9/L High (02/23/25 17:49:00) RBC: 5.6 E12/L ( (more content not included)... Normal [facility] Comment on above: Result Comment: Elec tronically Signed By: Irving Thomas DO\.br\Date and Time Signed: 02/23/25 20:31 EDT ED Note-Physician ED Note-Physician Basic Information Time Seen: Esperanza Smith M.D. 02/23/2025 17:28 Chief Complaint pt states yesterday she had epigastric pain and now has been having pain wrap around her abdomen and dark urine. pt states she has incontinence, no vomiting but has been having fevers, no urinary burning, has hx of kidney stone. was seen at urgent care History of Present Illness The patient is a 34-year-old female who presented to the emergency room with her mother for possible kidney infection. The patient states since yesterday she has been having some urinary urgency. The patient states she started having epigastric abdominal pain and now the pain is on both sides to the back/flank. The patient denies any lower back pain. The patient states she has history of kidney stones in the past. The patient states her urine is dark. The patient reports some chills. The patient reports sweating.She reports generalized body ache. She had temperature of 100.4. The patient denies any cough. She denies any blood in urine. She went to urgent care and they sent her to the emergency room. The patient denies any nausea, denies any vomiting. The patient denies any chest pain. Denies any shortness of breath. The patient denies any other associated symptoms. Review of Systems Additional ROS info: Except as noted in the above Review of Systems and in the History of Present Illness all other systems have been reviewed and are negative or noncontributory. Physical Exam Vitals & Measurements T: 37.5 ???C(Oral) HR: 97(Monitored) RR: 18 BP: 110/63 SpO2: 99% HT: 172.72 cm WT: 113 kg BMI: 37.88 General: alert, no acute distress Skin: warm, moist Head: no trauma, normocephalic Neck: Trachea midline, no tenderness, supple Eye: normal conjunctiva, sclera clear, EOMI, vision unchanged ENMT: Oral mucosa moist, no pharyngeal erythema or exudate Cardiovascular: regular rate and rhythm Gastrointestinal: soft, non distended, mild epigastric tenderness, no guarding Back: Mild CVA tenderness on the left Extremities: no deformity, no trauma Neurological: Alert and oriented, speech normal, no focal neuro deficits Psychiatric: cooperative, affect appropriate for age Medical Decision Making MEDICAL DECISION MAKING Number and Complexity of Problems Differential Diagnosis: [] [facility] Data External documents reviewed: [] My EKG interpretation: [] My CT interpretation: [] My X-ray interpretation: [] My Ultrasound interpretation: [] Decision rules/scores evaluated: [] Discussed with: [] Treatment and Disposition ED Course: The patient presented with bilateral side/flank pain and some urgency with urination. Blood work reviewed. Her white count is elevated. The urine shows elements of infection. The CT of the abdomen and pelvis shows a 3.5 mm stone on the left kidney nonobstructive. No hydronephrosis. The lactic acid is normal. The patient was given IV fluids and Rocephin. She was given Toradol for pain. The care of the patient was transitioned to Dr. Thomas upon shift change to follow-up with reevaluation and final disposition. Shared decision making: [] Code status: [] Assessment/Plan 1. Flank pain (R10.9: Unspecified abdominal pain) 2. Urinary tract infection (N39.0: Urinary tract infection, site not specified) Orders: ceftriaxone + Sodium Chloride 0.9% intravenous solution 50 mL, 1,000 mg = 1 EA, IV Piggyback, Once, Stop date 02/23/25 19:19:00 EDT, STAT, Start date 02/23/25 19:19:00 EDT, 100 mL/hr, Infuse over 30 minute(s), 02/23/25 19:19:00 EDT ketorolac, 30 mg = 1 mL, Injection, IV Push, Once, Stop date 02/23/25 19:16:00 EDT, STAT, Start date 02/23/25 19:16:00 EDT, 02/23/25 19:16:00 EDT Sodium Chloride 0.9% intravenous solution, 1,000 mL, Soln-IV, IV, Once, Stop date 02/23/25 17:36:00 EDT, STAT, Start date 02/23/25 17:36:00 EDT, Infuse over 61, minute(s) Basic Metabolic Panel Blood Culture Charcoal Blood Culture Charcoal CBC w/ Auto Diff CT Abdomen/Pelvis w/o Contrast eGFR Extra SST Tube Hepatic Function Panel Lactic Acid Lipase Level PT & PTT Rapid COVID Antigen ([facility]) U Beta Hcg Qual UA with Cult Rflx Urine Culture Medications Administered Given NS 1000 ml Bolus, 1000 mL, IV Disposition Plan Discharge Prescription List Prescriptions No active prescription medications Follow-up No qualifying data available Problem List/Past Medical History Ongoing No qualifying data Historical No qualifying data Medications Inpatient ceftriaxone additive + Sodium Chloride 0.9% intravenous solution 50 mL ketorolac 30 mg/mL Inj 1 mL, 30 mg= 1 mL, IV Push, Once Home No active home medications Allergies Bactrim (Rash) minocycline (Rash) Social History Alcohol - Denies Alcohol Use, 02/23/2025 Substance Abuse - Denies Substance Abuse, 02/23/2025 Tobacco - Denies Tobacco Use, 02/23/2025 Lab Results WBC: 14 E9/L High (02/23/25 17:49:00) RBC: 5.6 E12/L ( (more content not included)... Normal [facility] Comment on above: Result Comment: Elec tronically Signed By: Luis Goetz, Esperanza Mcintosh\.griffin\Date and Time Signed: 02/23/25 19:21 EDT ED Patient Summaryon 025 ED Patient Summary ED Patient Summary [address] [address] Patient Discharge Instructions Person Information Name: NAN MENDEZ Age: 34 Years Arrival Date: 02/23/2025 17:25:43 Discharge Diagnosis: 1:Flank pain; 2:Urinary tract infection Primary Care Physician: LEONEL RODRIGUEZ MD Provider Information Primary Provider: Esperanza Smith M.D. Advanced Advance Agent:None The exam and treatment you received in the Emergency Department were for an urgent problem and are not intended as complete care. It is important that you follow up with a doctor, nurse practitioner, or physician???s operations assistant for ongoing care. If your symptoms become worse or you do not improve as expected and you are unable to reach your usual health care provider, you should return to the Emergency Department. We are available 24 hours a day. NAN MENDEZ has been given the following list of patient education materials, prescriptions and follow-up instructions: Follow-up Instructions: With: Address: When: LEONEL RODRIGUEZ [address] [place] [address] Business (1) In 3 days 02/26/2025 Comments: Take the antibiotics as prescribed you have completed the course. You can use the Zofran every 6 hours as needed for nausea and vomiting. Please follow-up with your primary care doctor for further evaluation management. Please return the ED for any new or worsening symptoms. In the event that this physician does not participate in your insurance network, please consult with your insurance company to find a nearby participating provider. Patient Education Materials: Urinary Tract Infection, Adult, [id number] A MESSAGE TO ALL PATIENTS REGARDING OPIOIDS PRESCRIPTION OPIOIDS: WHAT YOU NEED TO KNOW Prescription opioids can be used to help relieve tsoegkqs-gt-lwdvse pain and are often prescribed following a surgery or injury, or for certain health conditions. These medications can be an important part of the treatment but also come with serious risks. It is important to work with your healthcare provider to make sure you are getting the safest, most effective care. WHAT ARE THE RISKS AND SIDE EFFECTS OF OPIOID USE? Prescription opioids carry serious risks of addiction and overdose, especially with prolonged use. An opioid overdose, often marked by slowed breathing, can cause sudden . The use of prescription opioids can have a number of side effects as well, even when taken as directed: ??? Tolerance???meaning you might need to take more of the medication for the same pain relief ??? Physical dependence???meanin g you have symptoms of withdrawal when a medication is stopped ??? Increased sensitivity to pain ??? Constipation ??? Nausea, vomiting, and dry mouth ??? Sleepiness and dizziness ??? Confusion ??? Depression ??? Low levels of testosterone that can result in lower sex drive, energy, and strength ??? Itching and sweating RISKS ARE GREATER WITH: ??? History of drug misuse, substance use disorder, or overdose ??? Mental health conditions (such as depression or anxiety) ??? Sleep apnea ??? Older age (65 years and older) ??? Avoid alcohol while taking prescription opioids. Also, unless specifically advised by your health care provider, medications to avoid include: ??? Benzodiazepines (such as Xanax or Valium) ??? Muscle relaxants (such as Soma or Flexeril) ??? Hypnotics (such as Ambien or Lunesta) ??? Other prescription opioids KNOW YOUR OPTIONS Talk to your health care provider about ways to manage your pain that don???t involve prescription opioids. Some of these options may actually work better and have fewer risks and side effects. Options may include: ??? Pain relievers such as acetaminophen, ibuprofen, and naproxen ??? Some medication that are also used for depression or seizures ??? Physical therapy and exercise ??? Cognitive behavioral therapy, a psychological, goal-directed approach, in which patients learn how to modify physical, behavioral, and emotional triggers of pain and stress. IF YOU ARE PRESCRIBED OPIOIDS FOR PAIN: ??? Never take opioids in greater amounts or more often than prescribed. ??? Follow up with your primary health care provider. o Work together to create a plan on how to manage your pain. o Talk about ways to help manage your pain that don???t involve prescription opioids. o Talk about any and all concerns and side effects. ??? Help prevent misuse and abuse o Never sell or share prescription opioids. o Never use another person???s prescription opioids. ??? Store prescription opioids in a secure place and out of reach of others (this may include visitors, children, friends, and family). ??? Safely dispose of unused prescription opioids: Find your community drug take-back program or your pharmacy mail-back program, or flu (more content not included)... Normal [facility] HEMATOLOGYOrdered By: SYSTEM SYSTEM on 02-23-2025 Basophils/100 WBC (Bld) 0.1 % Normal 0.0 - 2.0 % Remisol Heme Basophils/Leukocytes Auto (Bld) [Pure # fraction] 0.0 E9/L Normal 0.0 - 0.2 E9/L Rem[facility] Heme Eosinophils (Bld) [#/Vol] 0.0 E9/L Normal 0.0 - 0.5 E9/L Remisol Heme Eosinophils/100 WBC (Bld) 0.0 % Normal 0.0 - 8.0 % Remisol Heme Erythrocyte distribution width (RBC) [Ratio] 13.1 % Normal 10.9 - 14.2 % Rem[facility] Heme Hematocrit (Bld) [Volume fraction] 46.0 % Normal 34.0 - 46.0 % Remisol Heme Hemoglobin (Bld) [Mass/Vol] 15.5 g/dL Normal 12.0 - 16.0 gm/dL [facility] Heme Lymphocytes (Bld) [#/Vol] 1.3 E9/L Normal 1.0 - 4.0 E9/L [facility] Lymphocytes/100 WBC (Bld) 9.2 % Low 14.0 - 50.0 % Remisol Heme MCH (RBC) [Entitic mass] 27.5 pg Normal 27.0 - 34.0 pg Remisol Heme MCHC (RBC) [Mass/Vol] 33.7 g/dL Normal 31.4 - 36.0 gm/dL [facility] Heme MCV (RBC) [Entitic vol] 81.7 fL Normal 80.0 - 100.0 fL [facility]e Monocytes (Bld) [#/Vol] 1.1 E9/L High 0.2 - 1.0 E9/L [facility] Monocytes/100 WBC (Bld) 7.9 % Normal 4.0 - 14.0 % [facility] Heme Neutrophils (Bld) [#/Vol] 11.6 E9/L High 2.0 - 7.5 E9/L [facility]e Neutrophils/100 WBC (Bld) 82.8 % High 36.0 - 75.0 % [facility] Platelet mean volume (Bld) [Entitic vol] 8.2 fL Normal 6.4 - 10.8 fL [facility] Platelets (Bld) [#/Vol] 245.0 E9/L Normal 150. 0 - 500.0 E9/L [facility] RBC (Bld) [#/Vol] 5.6 E12/L Normal 4.3 - 5.9 E12/L [facility] WBC corrected for nucl RBC Auto (Bld) [#/Vol] 14.0 E9/L High 4.0 - 11.0 E9/L [facility] Heme Hep Func Panelon 02-23-2025 Albumin [Mass/Vol] 4.2 g/dL Normal 3.3-5.0 [facility] Comment on above: Performed By: #### 2 [id number] #### [facility] [address] [place] [address] Albumin/Globulin [Mass ratio] 1.2 {ratio} Normal 1.1-2.2 [facility] Comment on above: Performed By: #### 2 [id number] #### [facility] [address] [place] [address] Alk Phos 68 Int._Unit/L Normal 21-98 [place] Comment on above: Performed By: #### 2 [id number] #### [facility] [address] [place] [address] ALT 11 Int._Unit/L Normal 6-46 [place] Comment on above: Performed By: #### 2 [id number] #### [facility] [address] [place] [address] AST 14 Int._Unit/L Normal 5-43 [place] Comment on above: Performed By: #### 2 [id number] #### [facility] [address] [place] [address] Bili Direct 0.1 mg/dL Normal 0.0-0.4 [facility] Comment on above: Performed By: #### 2 [id number] #### [facility] [address] [place] [address] Bili Indirect 0.5 mg/dL Normal 0.1-0.9 [facility] Comment on above: Performed By: #### 2 [id number] #### [facility] [address] [place] [address] Bili Total 0.6 mg/dL Normal 0.0-1.1 [facility] Comment on above: Performed By: #### 2 [id number] #### [facility] [address] [place] [address] Globulin (S) [Mass/Vol] 3.6 g/dL Normal 1.4-4.0 [facility] Comment on above: Performed By: #### 2 [id number] #### [facility] [address] [place] [address] Protein [Mass/Vol] 7.8 g/dL Normal 6.0-7.8 [facility] Comment on above: Performed By: #### 2 [id number] #### [facility] [address] [place] [address] Laboratory - Chemistry and C hemistry - challengeOrdered By: Aydee Nieves on 02-23-2025 Bilirubin Ql (U) SMALL [facility] Glucose (U) [Mass/Vol] Negative [facility] Ketones Ql (U) Negative [facility] pH (U) 6.0 [pH] [facility] Specific gravity (U) [Rel density] 1.020 [facility] Urobilinogen (U) [Mass/Vol] 1.0 mg/dL [facility] Laboratory - Specimen inform ationOrdered By: Aydee Nieves on 02-23-2025 Appearance (U) DARK [facility] Color (U) COLETTE [facility] Laboratory - UrinalysisOrder ed By: Aydee Nieves on 02-23-2025 Leukocyte esterase Test strip Ql (U) TRACE [facility] Nitrite Ql (U) Negative [facility] Protein Ql (U) 100 [facility] Lactic Acidon 02-23-2025 Lactic Acid Lvl 1.5 mmol/L Normal 0.5-2.2 [facility] Comment on above: Performed By: #### 2 [id number] #### [facility] [address] [place] [address] Lipase Levelon 02-23-2025 Lipase Lvl 15 unit/L Normal 13-58 [facility] Comment on above: Performed By: #### 2 [id number] #### [facility] [address] [place] [address] MICRO OTHER TESTSOrdered By: Torrie Fine on 02-23-2025 Rapid COV Int NEG Ctl Pass (02/23/25 6:06 PM) Normal [facility] Man Sero Rapid COV Int POS Ctl Pass (02/23/25 6:06 PM) Normal [facility] Sero SARS-CoV+SARS-CoV-2 (COVID-19) Ag IA.rapid Ql (Resp) Not Detected 5 (02/23/25 6:06 PM) Normal Not Detected [facility] Comment on above: Interpretive Data: T avril Blinkiverseitor System for Rapid Detection of SARS-CoV-2 is a chromatographic digital immunoassay intended for the direct and qualitative detection of SARS-CoV-2 nucleocapsid antigens in nasal swabs from individuals who are suspected of COVID-19 by their healthcare provider within the first five days of the onset of symptoms. Negative results should be treated as presumptive, do not rule out SARS-CoV-2 infection and should not be used as the sole basis for treatment or patient management decisions, including infection control decisions. Negative results should be considered in the context of a patient s recent exposures, history and the presence of clinical signs and symptoms consistent with COVID-19, and confirmed with a molecular assay, if necessary, for patient management. For in vitro diagnostic use. In the [place], only for use under an Emergency Use Authorization. In the [place], this test has not been FDA cleared or approved; this test has been authorized by FDA under an EUA for use by authorized laboratories; use by laboratories certified under the CLIA, 42 U.S.C. 263a, that meet requirements to perform moderate, high, or waived complexity tests and at the Point of Care (POC), i.e., in patient care settings operating under a CLIA Certificate of Waiver, Certificate of Compliance, or Certificate of Accreditation. This test has been authorized only for the detection of proteins from SARS-CoV-2, not for any other viruses or pathogens; and, in the [place], this test is only authorized for the duration of the declaration that circumstances exist justifying the authorization of emergency use of in vitro diagnostics for detection and/or diagnosis of the virus that causes COVID-19 under Section 564(b)(1) of the Act, 21 U.S.C. 360bbb-3(b)(1), unless the authorization is terminated or revoked sooner. No Panel InformationOrdered By: Aydee Nieves on 02-23-2025 Urine Occult Blood TRACE [facility] PT & PTTon 02-23-2025 INR Coag (PPP) [Relative time] 1.04 {INR} Invalid Interpretation Code [facility] Comment on above: Result Comment: INR results are specifically intended to assess patients stabilized on long-term Anticoagulation therapy suggested INR???s ???Less Intensive Anticoagulation??? 2.0 ??? 3.0 Conventional Range 3.0 ??? 4.5 Performed By: #### 1 [id number] #### [facility] [address] [place] [address] PT 11.7 second(s) Normal 9.4-12.5 [place] Comment on above: Result Comment: 15 d ays - 4 weeks 1 - 5 months 6 -11 months 1 ??? 5 years 6 ??? 10 years 11 -17 years Mean: 11.2 (9.5 ??? 12.6) Mean: 11.0 (9.7 ??? 12.8) Mean: 11.0 (9.8 ??? 13.0) Mean: 11.3 (9.9 ??? 13.4) Mean: 11.7 (10.0 ??? 14.6) Mean: 11.8 (10.0 - 14.1) Pediatric Reference ranges were obtained from a study by guillermo Gonzalez al. prepared from 1437 samples obtained at 7 different centers using the same coagulation reagent and instrumentation as [facility]. Currently there are no coagulation studies available worldwide for children to 14 days, and no normal ranges. Performed By: #### 1 [id number] #### [facility] [address] [place] [address] PTT 28.8 second(s) Normal 25.1-36.5 [place] Comment on above: Result Comment: Para meter 15 days - 4 weeks 1 - 5 months 6 - 11 months 1 - 5 years 6 - 10 years 11 - 17 years PTT Mean: 35.4 (27.6-45.6) Mean: 33.5 (24.8-40.7) Mean: 32.4 (25.1-40.7) Mean: 31.6 (24.0-39.2) Mean: 31.6 (26.9-38.7) Mean: 31.0 (24.6-38.4) Pediatric Reference ranges were obtained from a study by Lauri Alexandra et al. prepared from 1437 samples obtained at 7 different centers using the same coagulation reagent and instrumentation as [facility]. Currently there are no coagulation studies available worldwide for children to 14 days, and no normal ranges. Heparin therapeutic range (represented by Anti-Factor Xa activity of 0.2 - 0.4 U/mL) corresponds to PTT of 56.6 - 109.0 sec. Performed By: #### 1 [id number] #### [facility] [address] [place] [address] Rapid COVID Antigen ([facility])on 02-23-2025 Rapid COV Int NEG Ctl Pass Normal [facility] Comment on above: Performed By: #### 2 [id number] #### [facility] [address] [place] [address] Rapid COV Int POS Ctl Pass Normal [facility] Comment on above: Performed By: #### 2 [id number] #### [facility] Laboratory [address] [place] [address] SARS-CoV-2 (COVID-19) RNA CODY+probe Ql (Unsp spec) Not detected Normal Not Detected [facility] Comment on above: Result Comment: The BD Veritor??? System for Rapid Detection of SARS-CoV-2 is a chromatographic digital immunoassay intended for the direct and qualitative detection of SARS-CoV-2 nucleocapsid antigens in nasal swabs from individuals who are suspected of COVID-19 by their healthcare provider within the first five days of the onset of symptoms. Negative results should be treated as presumptive, do not rule out SARS-CoV-2 infection and should not be used as the sole basis for treatment or patient management decisions, including infection control decisions. Negative results should be considered in the context of a patient???s recent exposures, history and the presence of clinical signs and symptoms consistent with COVID-19, and confirmed with a molecular assay, if necessary, for patient management. For in vitro diagnostic use. In the [facility], only for use under an Emergency Use Authorization. In the [place], this test has not been FDA cleared or approved; this test has been authorized by FDA under an EUA for use by authorized laboratories; use by laboratories certified under the CLIA, 42 U.S.C. ???263a, that meet requirements to perform moderate, high, or waived complexity tests and at the Point of Care (POC), i.e., in patient care settings operating under a CLIA Certificate of Waiver, Certificate of Compliance, or Certificate of Accreditation. This test has been authorized only for the detection of proteins from SARS-CoV-2, not for any other viruses or pathogens; and, in the [facility], this test is only authorized for the duration of the declaration that circumstances exist justifying the authorization of emergency use of in vitro diagnostics for detection and/or diagnosis of the virus that causes COVID-19 under Section 564(b)(1) of the Act, 21 U.S.C. ??? 360bbb-3(b)(1), unless the authorization is terminated or revoked sooner. Performed By: #### 2 [id number] #### [facility] [address] [place] [address] SEROLOGYOrdered By: Amelia Mccullough on 02-23-2025 HCG.beta subunit (U) [Moles/Vol] Negative Normal [facility] Man Sero U BetaHcg [place] 02-23-2025 U beta hCG Ql Negative Normal [facility] Comment on above: Performed By: #### 2 [id number] #### [facility] [address] [place] [address] UA with Cult Rflxon 02-24-20 25 Color (U) Yellow Normal Yellow [facility] Comment on above: Result Comment: Micr oscopic readings are only performed on those samples that meet specific criteria set forth by [facility]. Performed By: #### 4 [id number] #### [facility] [address] [place] [address] Glucose (U) [Mass/Vol] Negative Normal Negative [facility] Comment on above: Performed By: #### 4 [id number] #### [facility] [address] [place] [address] Ketones Ql (U) 1+ mg/dL Abnormal Negative [place] Comment on above: Performed By: #### 4 [id number] #### [facility] [address] [place] [address] UA Blood 2+ mg/dL Abnormal Negative [facility] Comment on above: Performed By: #### 4 [id number] #### [facility] [address] [place] [address] UA Bacteria Trace Normal Trace [facility] Comment on above: Performed By: #### 4 [id number] #### [facility] [address] [place] [address] UA Clarity Clear Normal Clear [facility] Comment on above: Performed By: #### 4 [id number] #### [facility] [address] [place] [address] UA Leuk Est 75 [place]/uL Abnormal Negative [facility] Comment on above: Performed By: #### 4 [id number] #### [facility] [address] [place] [address] UA Mucous Trace Normal Negative [facility] Comment on above: Performed By: #### 4 [id number] #### [facility] [address] [place] [address] UA Nitrite Negative Normal Negative [facility] Comment on above: Performed By: #### 4 [id number] #### [facility] [address] [place] [address] UA pH 6.0 Invalid Interpretation Code 5.0-9.0 [facility] Comment on above: Performed By: #### 4 [id number] #### [facility] [address] [place] [address] UA Protein 1+ mg/dL Abnormal Negative [facility] Comment on above: Performed By: #### 4 [id number] #### [facility] [address] [place] [address] UA RBC 21-30 Abnormal 0-3 [facility] Comment on above: Performed By: #### 4 [id number] #### [facility] [address] [place] [address] UA Spec Grav 1.024 Invalid Interpretation Code 1.005-1.030 [facility] Comment on above: Performed By: #### 4 [id number] #### [facility] [address] [place] [address] UA Squam Epithelial 0-2 Invalid Interpretation Code [facility] Comment on above: Performed By: #### 4 [id number] #### [facility] [address] [place] [address] UA Urobilinogen 2 mg/dL Abnormal Negative [facility] Comment on above: Performed By: #### 4 [id number] #### [facility] [address] [place] [address] UA WBC 16-25 Abnormal 0-5 [facility] Comment on above: Performed By: #### 4 [id number] #### [facility] [address] [place] [address] Urobilinogen (U) [Mass/Vol] Negative Normal Negative [facility] Comment on above: Performed By: #### 4 [id number] #### [facility] [address] [place] [address] UA Spec Desc Clean Catch Normal [facility] Comment on above: Performed By: #### 4 [id number] #### [facility] [address] [place] [address] URINALYSISOrdered By: SYSTEM SYSTEM on 02-23-2025 Bacteria Auto Ql (U) Trace /HPF Normal Trace/HPF [facility] UA Auto SS Bilirubin Ql (U) Negative Normal Negativemg/ d L [facility] UA Auto SS Clarity (U) Clear (02/23/25 6:00 PM) Normal Clear [facility] UA Auto SS Color (U) Yellow 1 (02/23/25 6:00 PM) Normal Yellow [facility] UA Auto SS Comment on above: Interpretive Data: M icroscopic readings are only performed on those samples that meet specific criteria set forth by [facility]. Epithelial cells.squamous Auto (Urine sed) [#/Area] 0-2 graded/HPF Invalid Interpretation Code [facility] UA Auto SS Glucose Ql (U) Negative Normal Negativemg/d L [facility] UA Auto SS Hemoglobin Auto test strip (U) [Mass/Vol] 2+ mg/dL Invalid Interpretation Code Negativemg/d L [facility] UA Auto SS Ketones Auto test strip Ql (U) 1+ mg/dL Invalid Interpretation Code Negativemg/d L [facility] UA Auto SS Leukocyte esterase Auto test strip Ql (U) 75 [place]/uL [place]/uL Invalid Interpretation Code NegativeLeu/ uL [facility] UA Auto SS Mucus Auto Ql (U) Trace graded/LPF Normal Negati vegrad ed/LPF [facility] UA Auto SS Nitrite Auto test strip Ql (U) Negative Normal Negativemg/d L [facility] UA Auto SS pH (U) 6.0 *NA* (02/23/25 6:00 PM) Invalid Interpretation Code 5.0 - 9.0 [facility] UA Auto SS Protein Ql (U) 1+ mg/dL Invalid Interpretation Code Negativemg/d L [facility] UA Auto SS RBC Ql (U) 21-30 graded/HPF Invalid Interpretation Code 0-3graded/HP F [facility] UA Auto SS Specific gravity (U) [Rel density] 1.024 *NA* (02/23/25 6:00 PM) Invalid Interpretation Code 1.005 - 1.030 [facility] UA Auto SS Urobilinogen (U) [Mass/Vol] 2 mg/dL Invalid Interpretation Code Negativemg/d L [facility] UA Auto SS WBC Auto (Urine sed) [#/Area] 16-25 graded/HPF Invalid Interpretation Code 0-5graded/HP F [facility] UA Auto SS URINALYSISOrdered By: Esperanza Smith on 02-23-2025 UA Spec Desc Clean Catch (02/23/25 6:00 PM) Normal [facility] UA Auto SS eGFRon 02-23-2025 eGFR 86 mL/min/1.73 m2 Normal >=59 [facility] Comment on above: Performed By: #### 1 [id number] #### [facility] [address] [place] [address] Quick Strepon 08-22-2023 S. pyogenes Org specific cx Ql (Throat) Positive [employer] Other Quick Strep DocuTAP Other Alanine aminotransferase [En zymatic activity/volume] in Serum or PlasmaOrdered By: Upender Gehlot on 08-12-2023 ALT [Catalytic activity/Vol] 11 U/L 7-52 [facility] Albumin [Mass/volume] in Ser um or Plasma by Bromocresol green (BCG) dye binding methoOrdered By: Upender Gehlot on 08-12-2023 Albumin BCG dye [Mass/Vol] 4.2 g/dL 3.5-5.7 [facility] Alkaline phosphatase [Enzyma tic activity/volume] in Serum or PlasmaOrdered By: Upender Gehlot on 08-12-2023 ALP [Catalytic activity/Vol] 74 U/L 34-104 [facility] Aspartate aminotransferase [ Enzymatic activity/volume] in Serum or PlasmaOrdered By: Upender Gehlot on 08-12-2023 AST [Catalytic activity/Vol] 13 U/L 13-39 [facility] Bilirubin.total [Mass/volume ] in Serum or PlasmaOrdered By: Upender Gehlot on 08-12-2023 Bilirubin [Mass/Vol] 0.2 mg/dL 0.3-1.0 [facility] Calcium [Mass/volume] in Ser um or PlasmaOrdered By: Upender Gehlot on 08-12-2023 Calcium [Mass/Vol] 9.6 mg/dL 8.6-10.3 [facility] Carbon dioxide, total [Moles /volume] in Serum or PlasmaOrdered By: Upender Gehlot on 08-12-2023 CO2 [Moles/Vol] 28.3 mmol/L 21.0-31.[address] [facility] Chloride [Moles/volume] in S carlos or PlasmaOrdered By: Anthony Bond on 08-12-2023 Chloride [Moles/Vol] 104 mmol/L 98-107 [facility] Creatinine [Mass/volume] in Serum or PlasmaOrdered By: Upender Gehlot on 08-12-2023 Creatinine [Mass/Vol] 1.09 mg/dL 0.60-1.20 [facility] Globulin Calc (S) [Mass/Vol] Ordered By: Upmarkus Bond on 08-12-2023 Globulin (S) [Mass/Vol] 2.8 g/dL [facility] Glucose [Mass/volume] in Ser um or PlasmaOrdered By: Anthony Bond on 08-12-2023 Glucose [Mass/Vol] 87 mg/dL 70-100 [facility] Comment on above: ADA recommended refe rence rangeRandom Glucose Reference Range is dependent on time and content of last meal. Glucose of more than 200 mg/dL in a nonstressed, ambulatory subject supports the diagnosis of Diabetes Mellitus. No Panel InformationOrdered By: Anthony Bond on 08-12-2023 Estimated GFR (CKD-EPI) > 60.0 mL/Min [facility] Creatinine Clearance (Chem N/A [facility] Potassium [Moles/volume] in Serum or PlasmaOrdered By: Anthony Geverona on 08-12-2023 Potassium [Moles/Vol] 4.2 mmol/L 3.5-5.1 [facility] Protein [Mass/volume] in Ser um or PlasmaOrdered By: Anthony Bond on 08-12-2023 Protein [Mass/Vol] 7.0 g/dL 6.4-8.9 [facility] Serum or plasma albumin/glob ulin mass ratioOrdered By: Anthony Gehlvlad on 08-12-2023 Albumin/Globulin [Mass ratio] 1.5 {ratio} [facility] Serum or plasma anion gap de terminationOrdered By: Anthony Gehlvlad on 08-12-2023 Anion gap [Moles/Vol] 8.9 mmol/L 6.0-15.0 [facility] Sodium [Moles/volume] in Ser um or PlasmaOrdered By: Upender Gehlot on 08-12-2023 Sodium [Moles/Vol] 137 mmol/L 136-145 [facility] Thyrotropin [Units/volume] i n Serum or PlasmaOrdered By: hlot on 08-12-2023 TSH Qn 2.53 m[IU]/L 0.45-5.33 [facility] Urea nitrogen [Mass/volume] in Serum or PlasmaOrdered By: Upender Gehlot on 08-12-2023 Urea nitrogen [Mass/Vol] 16 mg/dL 7-25 [facility] Quick Strepon 07-08-2023 S. pyogenes Org specific cx Ql (Throat) Negative [facility] [employer] Other Quick Strep DocuTAP Other Alanine aminotransferase [En zymatic activity/volume] in Serum or PlasmaOrdered By: Robert Zhang on 12-04-2022 ALT [Catalytic activity/Vol] 21 U/L 7-52 [facility] Albumin [Mass/volume] in Ser um or Plasma by Bromocresol green (BCG) dye binding methoOrdered By: Robert Zhang on 12-04-2022 Albumin BCG dye [Mass/Vol] 4.4 g/dL 3.5-5.7 [facility] Alkaline phosphatase [Enzyma tic activity/volume] in Serum or PlasmaOrdered By: Robert Zhang on 12-04-2022 ALP [Catalytic activity/Vol] 60 U/L 34-104 [facility] Aspartate aminotransferase [ Enzymatic activity/volume] in Serum or PlasmaOrdered By: Robert Zhang on 12-04-2022 AST [Catalytic activity/Vol] 24 U/L 13-39 [facility] Basophils Auto (Bld) [#/Vol] Ordered By: Robert Zhang on 12-04-2022 Basophils (Bld) [#/Vol] 0.0 10*3/uL 0.0-0.2 [facility] Basophils/100 WBC Auto (Bld) Ordered By: Robert Zhang on 12-04-2022 Basophils/100 WBC (Bld) 0.5 % . [facility] Bilirubin.direct [Mass/volum e] in Serum or PlasmaOrdered By: Robert Zhang on 12-04-2022 Bilirubin.direct [Mass/Vol] 0.10 mg/dL 0.03-0.18 [facility] Bilirubin.total [Mass/volume ] in Serum or PlasmaOrdered By: Robert Zhang on 12-04-2022 Bilirubin [Mass/Vol] 0.4 mg/dL 0.3-1.0 [facility] Calcium [Mass/volume] in Ser um or PlasmaOrdered By: Robert Zhang on 12-04-2022 Calcium [Mass/Vol] 9.8 mg/dL 8.6-10.3 [facility] Carbon dioxide, total [Moles /volume] in Serum or PlasmaOrdered By: Robert Zhang on 12-04-2022 CO2 [Moles/Vol] 26.4 mmol/L 21.0-31.[address] [facility] Chloride [Moles/volume] in S carlos or PlasmaOrdered By: Robert Zhang on 12-04-2022 Chloride [Moles/Vol] 106 mmol/L 98-107 [facility] Choriogonadotropin.beta subu nit [Units/volume] in Serum or PlasmaOrdered By: Robert Zhang on 12-04-2022 HCG.beta subunit Qn Negative [facility] Creatinine [Mass/volume] in Serum or PlasmaOrdered By: Robert Zhang on 12-04-2022 Creatinine [Mass/Vol] 1.00 mg/dL 0.60-1.20 [facility] Eosinophils Auto (Bld) [#/Vo l]Ordered By: Robert Zhang on 12-04-2022 Eosinophils (Bld) [#/Vol] 0.2 10*3/uL 0.0-0.45 [facility] Eosinophils/100 WBC Auto (Bl d)Ordered By: Robert Zhang on 12-04-2022 Eosinophils/100 WBC (Bld) 2.1 % . [facility] Erythrocyte distribution wid th Auto (RBC) [Ratio]Ordered By: Robert Zhang on 12-04-2022 Erythrocyte distribution width (RBC) [Ratio] 17.5 % 11.9-15.3 [facility] Globulin Calc (S) [Mass/Vol] Ordered By: Robert Zhang on 12-04-2022 Globulin (S) [Mass/Vol] 2.5 g/dL [facility] Glucose [Mass/volume] in Ser um or PlasmaOrdered By: Robert Zhang on 12-04-2022 Glucose [Mass/Vol] 73 mg/dL 70-100 [facility] Comment on above: ADA recommended refe rence rangeRandom Glucose Reference Range is dependent on time and content of last meal. Glucose of more than 200 mg/dL in a nonstressed, ambulatory subject supports the diagnosis of Diabetes Mellitus. Hematocrit Auto (Bld) [Volum e fraction]Ordered By: Robert Zhang on 12-04-2022 Hematocrit (Bld) [Volume fraction] 43.0 % 34.0-46.4 [facility] Hemoglobin [Mass/volume] in BloodOrdered By: Robert Zhang on 12-04-2022 Hemoglobin (Bld) [Mass/Vol] 13.9 g/dL 11.8-15.4 [facility] Leukocytes [#/volume] correc daniel for nucleated erythrocytes in Blood by Automated counOrdered By: Robert Zhang on 12-04-2022 WBC corrected for nucl RBC Auto (Bld) [#/Vol] 9.5 10*3/uL 3.8-11.6 [facility] Lymphocytes Auto (Bld) [#/Vo l]Ordered By: Robert Zhang on 12-04-2022 Lymphocytes (Bld) [#/Vol] 4.0 10*3/uL 1.00-4.8 [facility] Lymphocytes/100 WBC Auto (Bl d)Ordered By: Robert Zhang on 12-04-2022 Lymphocytes/100 WBC (Bld) 42.7 % . [facility] MCH Auto (RBC) [Entitic mass ]Ordered By: Robert Zhang on 12-04-2022 MCH (RBC) [Entitic mass] 25.1 pg 24.7-34.3 [facility] MCHC Auto (RBC) [Mass/Vol]Or dered By: Robert Zhang on 12-04-2022 MCHC (RBC) [Mass/Vol] 32.3 g/dL 32.0-35.0 [facility] MCV Auto (RBC) [Entitic vol] Ordered By: Robert Zhang on 12-04-2022 MCV (RBC) [Entitic vol] 77.8 fL 80-100 [facility] Monocytes Auto (Bld) [#/Vol] Ordered By: Robert Zhang on 12-04-2022 Monocytes (Bld) [#/Vol] 0.6 10*3/uL 0.0-0.8 [facility] Monocytes/100 WBC Auto (Bld) Ordered By: Robert Zhang on 12-04-2022 Monocytes/100 WBC (Bld) 6.0 % . [facility] Neutrophils Auto (Bld) [#/Vo l]Ordered By: Robert Zhang on 12-04-2022 Neutrophils (Bld) [#/Vol] 4.6 10*3/uL 1.8-7.7 [facility] Neutrophils/100 WBC Auto (Bl d)Ordered By: Robert Zhang on 12-04-2022 Neutrophils/100 WBC (Bld) 48.7 % . [facility] No Panel InformationOrdered By: Robert Zhang on 12-04-2022 Estimated GFR (CKD-EPI) > 60.0 mL/Min [facility] Creatinine Clearance (Chem N/A [facility] Nucleated erythrocytes [Pres ence] in Blood by Automated countOrdered By: Robert Zhang on 12-04-2022 Nucleated RBC Auto Ql (Bld) 0.1 /100{WBC} 0-0.5 [facility] Platelet mean volume Auto (B ld) [Entitic vol]Ordered By: Robert Zhang on 12-04-2022 Platelet mean volume (Bld) [Entitic vol] 7.9 fL 6.3-10.7 [facility] Platelets Auto (Bld) [#/Vol] Ordered By: Robert Zhang on 12-04-2022 Platelets (Bld) [#/Vol] 276 10*3/uL 150-450 [facility] Potassium [Moles/volume] in Serum or PlasmaOrdered By: Robert Zhang on 12-04-2022 Potassium [Moles/Vol] 4.3 mmol/L 3.5-5.1 [facility] Protein [Mass/volume] in Ser um or PlasmaOrdered By: Robert Zhang on 12-04-2022 Protein [Mass/Vol] 6.9 g/dL 6.4-8.9 [facility] RBC Auto (Bld) [#/Vol]Ordere d By: Robert Zhang on 12-04-2022 RBC (Bld) [#/Vol] 5.52 10*6/uL 3.60-5.00 [facility] Serum or plasma albumin/glob ulin mass ratioOrdered By: Robert Zhang on 12-04-2022 Albumin/Globulin [Mass ratio] 1.8 {ratio} [facility] Serum or plasma anion gap de terminationOrdered By: Robert Zhang on 12-04-2022 Anion gap [Moles/Vol] 9.9 mmol/L 6.0-15.0 [facility] Serum or plasma non-glucuron idated bilirubin measurement (mass/volume)Ordered By: Robert Zhang on 12-04-2022 Bilirubin.indirect [Mass/Vol] 0.3 mg/dL [facility] Sodium [Moles/volume] in Ser um or PlasmaOrdered By: Robert Zhang on 12-04-2022 Sodium [Moles/Vol] 138 mmol/L 136-145 [facility] Urea nitrogen [Mass/volume] in Serum or PlasmaOrdered By: Robert Zhang on 12-04-2022 Urea nitrogen [Mass/Vol] 11 mg/dL 7-25 [facility] WBC Auto (Bld) [#/Vol]Ordere d By: Robert Zhang on 12-04-2022 WBC (Bld) [#/Vol] 9.5 10*3/uL 3.8-11.6 [facility] Quick Fluon 08-18-2022 FLUAV Ab CF (S) [Titer] Negative N [employer] Other FLUBV Ab CF (S) [Titer] Negative N [employer] Other Quick Strepon 08-18-2022 S. pyogenes Org specific cx Ql (Throat) Positive [employer] Other Quick Strep DocuTAP Other Basophils Auto (Bld) [#/Vol] Ordered By: NON STAFF on 07-04-2022 Basophils (Bld) [#/Vol] 0.1 10*3/uL 0.0-0.2 [facility] Basophils/100 WBC Auto (Bld) Ordered By: NON STAFF on 07-04-2022 Basophils/100 WBC (Bld) 0.9 % . [facility] Body fluid albumin measureme nt (mass/volume)Ordered By: NON STAFF on 07-04-2022 Albumin (Body fld) [Mass/Vol] 4.2 g/dL 3.2-5.5 [facility] Creatinine and Glomerular fi ltration rate.predicted panel (S/P/Bld)Ordered By: NON STAFF on 07-04-2022 Creatinine [Mass/Vol] 1.08 mg/dL 0.44-1.03 [facility] Direct bilirubin measurement Ordered By: NON STAFF on 07-04-2022 Bilirubin.direct [Mass/Vol] 0.1 mg/dL 0.0-0.4 [facility] Eosinophils Auto (Bld) [#/Vo l]Ordered By: NON STAFF on 07-04-2022 Eosinophils (Bld) [#/Vol] 0.4 10*3/uL 0.0-0.45 [facility] Eosinophils/100 WBC Auto (Bl d)Ordered By: NON STAFF on 07-04-2022 Eosinophils/100 WBC (Bld) 4.2 % . [facility] Erythrocyte distribution wid th Auto (RBC) [Ratio]Ordered By: NON STAFF on 07-04-2022 Erythrocyte distribution width (RBC) [Ratio] 13.8 % 11.9-15.3 [facility] Estimated glomerular filtrat ion rate (GFR) non- AmericanOrdered By: NON STAFF on 07-04-2022 GFR/1.73 sq M.predicted among non-blacks MDRD (S/P/Bld) [Vol rate/Area] 59 mL/Min [facility] Globulin Calc (S) [Mass/Vol] Ordered By: NON STAFF on 07-04-2022 Globulin (S) [Mass/Vol] 3.7 g/dL [facility] HCG ( test) IA.rapi d Ql (U)Ordered By: NON STAFF on 07-04-2022 HCG ( test) Ql (U) Negative [facility] Hematocrit Auto (Bld) [Volum e fraction]Ordered By: NON STAFF on 07-04-2022 Hematocrit (Bld) [Volume fraction] 45.7 % 34.0-46.4 [facility] Hemoglobin [Mass/volume] in BloodOrdered By: NON STAFF on 07-04-2022 Hemoglobin (Bld) [Mass/Vol] 14.7 g/dL 11.8-15.4 [facility] Laboratory - Hematology and Cell countsOrdered By: NON STAFF on 07-04-2022 Nucleated RBC/100 WBC (Bld) [Ratio] 0.1 % 0-0.5 [facility] Leukocytes [#/volume] in Blo od by Automated countOrdered By: NON STAFF on 07-04-2022 WBC (Bld) [#/Vol] 8.5 10*3/uL 4.5-11.0 [facility] Lymphocytes Auto (Bld) [#/Vo l]Ordered By: NON STAFF on 07-04-2022 Lymphocytes (Bld) [#/Vol] 3.9 10*3/uL 1.00-4.8 [facility] Lymphocytes/100 WBC Auto (Bl d)Ordered By: NON STAFF on 07-04-2022 Lymphocytes/100 WBC (Bld) 46.3 % . [facility] MCH Auto (RBC) [Entitic mass ]Ordered By: NON STAFF on 07-04-2022 MCH (RBC) [Entitic mass] 27.8 pg 24.7-34.3 [facility] MCHC Auto (RBC) [Mass/Vol]Or dered By: NON STAFF on 07-04-2022 MCHC (RBC) [Mass/Vol] 32.2 g/dL 32.0-35.0 [facility] MCV Auto (RBC) [Entitic vol] Ordered By: NON STAFF on 07-04-2022 MCV (RBC) [Entitic vol] 86.2 fL 80-100 [facility] Monocytes Auto (Bld) [#/Vol] Ordered By: NON STAFF on 07-04-2022 Monocytes (Bld) [#/Vol] 0.6 10*3/uL 0.0-0.8 [facility] Monocytes/100 WBC Auto (Bld) Ordered By: NON STAFF on 07-04-2022 Monocytes/100 WBC (Bld) 7.4 % . [facility] Neutrophils Auto (Bld) [#/Vo l]Ordered By: NON STAFF on 07-04-2022 Neutrophils (Bld) [#/Vol] 3.5 10*3/uL 1.8-7.7 [facility] Neutrophils/100 WBC Auto (Bl d)Ordered By: NON STAFF on 07-04-2022 Neutrophils/100 WBC (Bld) 41.2 % . [facility] No Panel InformationOrdered By: NON STAFF on 07-04-2022 Estimated GFR () > 60 mL/Min [facility] Comment on above: GFR estimated refere nce range: According to KDOQI guidelines, <60 ml/min/1.73m2 is sufficient to diagnose a patient with chronic kidney disease. Pharmacy Creatinine Clearance (Chem N/A [facility] Platelet mean volume Auto (B ld) [Entitic vol]Ordered By: NON STAFF on 07-04-2022 Platelet mean volume (Bld) [Entitic vol] 8.1 fL 6.3-10.7 [facility] Platelets Auto (Bld) [#/Vol] Ordered By: NON STAFF on 07-04-2022 Platelets (Bld) [#/Vol] 279 10*3/uL 150-450 [facility] Protein [Mass/volume] in Ser um or PlasmaOrdered By: NON STAFF on 07-04-2022 Protein [Mass/Vol] 7.9 g/dL 6.1-7.9 [facility] RBC Auto (Bld) [#/Vol]Ordere d By: NON STAFF on 07-04-2022 RBC (Bld) [#/Vol] 5.31 10*6/uL 3.60-5.00 [facility] Serum or plasma alanine li otransferase measurement without P-5'-P (enzymatic activiOrdered By: NON STAFF on 07-04-2022 ALT No additional P-5'-P [Catalytic activity/Vol] 16 U/L 10-60 [facility] Serum or plasma albumin/glob ulin mass ratioOrdered By: NON STAFF on 07-04-2022 Albumin/Globulin [Mass ratio] 1.1 {ratio} [facility] Serum or plasma alkaline lilliam sphatase measurement (enzymatic activity/volume)Ordered By: NON STAFF on 07-04-2022 ALP [Catalytic activity/Vol] 53 U/L 32-92 [facility] Serum or plasma anion gap de terminationOrdered By: NON STAFF on 07-04-2022 Anion gap [Moles/Vol] 13.4 mmol/L 6.0-15.0 [facility] Serum or plasma aspartate am inotransferase measurement (enzymatic activity/volume)Ordered By: NON STAFF on 07-04-2022 AST [Catalytic activity/Vol] 19 U/L 10-42 [facility] Serum or plasma calcium iggy urement (mass/volume)Ordered By: NON STAFF on 07-04-2022 Calcium [Mass/Vol] 9.8 mg/dL 8.2-10.2 [facility] Serum or plasma chloride theron surement (moles/volume)Ordered By: NON STAFF on 07-04-2022 Chloride [Moles/Vol] 101 mmol/L 95-114 [facility] Serum or plasma glucose iggy urement (mass/volume)Ordered By: NON STAFF on 07-04-2022 Glucose [Mass/Vol] 88 mg/dL 70-100 [facility] Comment on above: ADA recommended refe rence rangeRandom Glucose Reference Range is dependent on time and content of last meal. Glucose of more than 200 mg/dL in a nonstressed, ambulatory subject supports the diagnosis of Diabetes Mellitus. Serum or plasma non-glucuron idated bilirubin measurement (mass/volume)Ordered By: NON STAFF on 07-04-2022 Bilirubin.indirect [Mass/Vol] 0.6 mg/dL [facility] Serum or plasma potassium me asurement (moles/volume)Ordered By: NON STAFF on 07-04-2022 Potassium [Moles/Vol] 4.5 mmol/L 3.5-5.1 [facility] Serum or plasma sodium measu rement (moles/volume)Ordered By: NON STAFF on 07-04-2022 Sodium [Moles/Vol] 137 mmol/L 136-146 [facility] Serum or plasma total biliru bin measurement (mass/volume)Ordered By: NON STAFF on 07-04-2022 Bilirubin [Mass/Vol] 0.7 mg/dL 0.3-1.2 [facility] Serum or plasma total carbon dioxide measurement (moles/volume)Ordered By: NON STAFF on 07-04-2022 CO2 [Moles/Vol] 27.1 mmol/L 22.0-30.[address] [facility] Serum or plasma urea nitroge n measurement (mass/volume)Ordered By: NON STAFF on 07-04-2022 Urea nitrogen [Mass/Vol] 9 mg/dL 9- [facility] US VAC ASST BX BREAST LT W C LIPon 04-17-2022 US VAC ASST BX BREAST LT W CLIP Begin Addendum #1 COLLECTED DATE/TIME: 04/04/2022 09:08 EDT Final Diagnosis Report for [facility], [place], [place] LEFT BREAST MASS AT 6 O'CLOCK, ULTRASOUND-GUIDED CORE BIOPSY: -BENIGN BREAST TISSUE WITH NO SIGNIFICANT HISTOLOGICAL ABNORMALITIES. -NO EVIDENCE OF MALIGNANCY. 04/09/[address] Camacho. Verified with Debra that report was present in the office. Original Report EXAM: US VAC ASST BX BREAST LT W CLIP HISTORY: Mammographic mass of left breast COMPARISON: Ultrasound breast 03/29/2022, diagnostic mammography 03/29/2022 TECHNIQUE: After obtaining informed consent, ultrasound-guided biopsy was performed in the usual sterile manner. The location of the biopsy was then marked as indicated below. FINDINGS: Specimen #, Location: 3 core samples; 6:00 left breast. Biopsy Needle: 13 gauge vacuum core biopsy needle. Marker(s): A single metallic marker was placed in the appropriate targeted location. Medication: Buffered 1% Lidocaine with epinephrine administered locally. Complications: None. Pathology: Pending. IMPRESSION: 1. Uneventful ultrasound-guided breast biopsy. 2. Pathology results are pending. An addendum to this report will be provided after pathology results are available. Normal [facility] MAMMO POST BIOPSY LEFTon MAMMO POST BIOPSY LEFT Patient: LEODANMOISENANKATIA Arango Exam Date: 04/04/2022 : 1990 Gender:F Ordering : DR ZAKI CAMACHO . Admission #: [id number] Family : Order #: [id number] CLICK HERE TO VIEW EXAM RADIOLOGY REPORT PROCEDURE: MAMMOGRAM POST BIOPSY IMAGES COMPARISON: US VAC ASST BX BRST LT W CLIP, 04/04/2022. MG MAMM DIAGNOSTIC 3D MARINO CAD, 03/29/2022. INDICATIONS: Mammographic mass of left breast BREAST COMPOSITION: FINDINGS: BIOPSY MARKER: A metallic marker has been placed in the targeted location within the lower-outer quadrant of the left breast. BREAST FINDINGS: Expected post biopsy findings. RECOMMENDATIONS: Dictated by: Dariel Duckworth M.D. on 04/05/2022 at 09:51 Approved by: Dariel Duckworth M.D. on 04/05/2022 at 09:53 [facility] PAP ACOG PANEL 2: 30 to 65on 04-01-2022 . . Normal [facility] Comment on above: Result Comment: Perf ormed at: WB Performed By: #### [id number] #### [facility] [address] [address] [address] Rex Santana Age Gdln ACOG Testing 30-65 Normal [facility] Comment on above: Performed By: #### [id number] #### [facility] [address] [address] [address] Rex Santana DIAGNOSIS: Comment Normal [facility] Comment on above: Result Comment: NEGA TIVE FOR INTRAEPITHELIAL LESION OR MALIGNANCY. Performed at: WB Performed By: #### [id number] #### [facility] [address] [address] [address] Rex Santana HPV Aptima Negative Normal Negative [facility] Comment on above: Result Comment: This nucleic acid amplification test detects fourteen high-risk HPV types (16,18,31,33,35,39,45,51,52,56,58,59,66,68) without differentiation. Performed at: =G Performed By: #### [id number] #### [facility] [address] [address] [address] Rex Santana Methodology: Comment Normal [facility] Comment on above: Result Comment: This liquid based ThinPrep(R) pap test was screened with the use of an image guided system. Performed at: WB Performed By: #### [id number] #### [facility] [address] [address] [address] Rex Santana Note: Comment Normal [facility] Comment on above: Result Comment: The Pap smear is a screening test designed to aid in the detection of premalignant and malignant conditions of the uterine cervix. It is not a diagnostic procedure and should not be used as the sole means of detecting cervical cancer. Both false-positive and false-negative reports do occur. . Performed at: WB Performed By: #### [id number] #### [facility] [address] [address] [address] Rex Santana Performed by: Comment Normal [facility] Comment on above: Result Comment: [employer] (ASCP) Performed at: WB Performed By: #### [id number] #### [facility] [address] [address] [address] Rex Santana Specimen adequacy: Comment Normal [facility] Comment on above: Result Comment: Sati sfactory for evaluation. Endocervical and/or squamous metaplastic cells (endocervical component) are present. Performed at: WB Performed By: #### [id number] #### [facility] [address] [place] [address] Dr. Rex Santana MG MAMM DIAGNOSTIC 3D MARINO CA Don 03-29-2022 MG MAMM DIAGNOSTIC 3D MARINO CAD Patient: NAN MENDEZ Exam Date: 03/29/2022 : 1990 Gender:F Ordering : DR ZAKI CAMACHO . Admission #: [id number] Family : Order #: [id number] CLICK HERE TO VIEW EXAM RADIOLOGY REPORT PROCEDURE: MAMMOGRAM DIAGNOSTIC 3D BILATERAL CAD, 03/29/2022, 10:14 ULTRASOUND BREAST BILATERAL LIMITED, 03/29/2022, 10:54 COMPARISON: None. INDICATIONS: Fibrocystic change of right breast Calculator Name NCI Breast Cancer Risk Assessment Tool 5 Year Breast Cancer Risk Not Applicable. Lifetime Breast Cancer Risk Not Applicable. Personal Breast Cancer No Personal Ovarian Cancer No Treatments None Family Cancers None LOCATION: [facility] BREAST COMPOSITION: Scattered areas fibroglandular density. FINDINGS: DIAGNOSTIC CATEGORY 4--SUSPICIOUS FOR MALIGNANCY. FINDING DOES NOT EXHIBIT CLASSIC FINDINGS OF BREAST CANCER: RIGHT BREAST: Since surface marker localizing a palpable lump to the upper-outer quadrant; no underlying abnormal mammographic or ultrasound findings. Scattered benign-appearing calcifications are present. LEFT BREAST: 1.6 cm lobular mass within lower-outer quadrant mid breast with adjacent 0.6 cm lobular mass. Multiple smaller masses scattered within the breast seen on tomographic images. Ultrasound evaluation demonstrates a lobular hypoechoic, heterogeneous mass with mild posterior shadowing at the 6 o'clock position, 4.4 cm from the nipple, 1.2 x 1.1 x 0.7 cm. An adjacent 0.6 x 0.6 x 0.3 cm heterogeneous mass corresponding to the mammographic findings is also identified, and is nearly isoechoic to breast tissue. No additional definable nodules within the breast on today's ultrasound to correlate with the multiple small nodules seen on the tomographic views. Ultrasound-guided tissue sampling of the 1.2 cm 6 o'clock mass within left breast is recommended. RECOMMENDATIONS: ULTRASOUND-GUIDED CORE BIOPSY: LEFT BREAST PLEASE NOTE: A NORMAL MAMMOGRAM DOES NOT EXCLUDE THE POSSIBILITY OF BREAST CANCER. A CLINICALLY SUSPICIOUS PALPABLE LUMP SHOULD BE BIOPSIED. Dictated by: Dariel Duckworth M.D. on 03/29/2022 at 11:33 Approved by: Dariel Duckworth M.D. on 03/29/2022 at 11:41 Normal [facility] US BREAST MARINO LIMITEDon 07-2 US BREAST MARINO LIMITED Patient: NAN MENDEZ Exam Date: 03/29/2022 : 1990 Gender:F Ordering : DR ZAKI CAMACHO . Admission #: [id number] Family : Order #: [id number] CLICK HERE TO VIEW EXAM RADIOLOGY REPORT PROCEDURE: MAMMOGRAM DIAGNOSTIC 3D BILATERAL CAD, 03/29/2022, 10:14 ULTRASOUND BREAST BILATERAL LIMITED, 03/29/2022, 10:54 COMPARISON: None. INDICATIONS: Fibrocystic change of right breast Calculator Name NCI Breast Cancer Risk Assessment Tool 5 Year Breast Cancer Risk Not Applicable. Lifetime Breast Cancer Risk Not Applicable. Personal Breast Cancer No Personal Ovarian Cancer No Treatments None Family Cancers None LOCATION: [facility] BREAST COMPOSITION: Scattered areas fibroglandular density. FINDINGS: DIAGNOSTIC CATEGORY 4--SUSPICIOUS FOR MALIGNANCY. FINDING DOES NOT EXHIBIT CLASSIC FINDINGS OF BREAST CANCER: RIGHT BREAST: Since surface marker localizing a palpable lump to the upper-outer quadrant; no underlying abnormal mammographic or ultrasound findings. Scattered benign-appearing calcifications are present. LEFT BREAST: 1.6 cm lobular mass within lower-outer quadrant mid breast with adjacent 0.6 cm lobular mass. Multiple smaller masses scattered within the breast seen on tomographic images. Ultrasound evaluation demonstrates a lobular hypoechoic, heterogeneous mass with mild posterior shadowing at the 6 o'clock position, 4.4 cm from the nipple, 1.2 x 1.1 x 0.7 cm. An adjacent 0.6 x 0.6 x 0.3 cm heterogeneous mass corresponding to the mammographic findings is also identified, and is nearly isoechoic to breast tissue. No additional definable nodules within the breast on today's ultrasound to correlate with the multiple small nodules seen on the tomographic views. Ultrasound-guided tissue sampling of the 1.2 cm 6 o'clock mass within left breast is recommended. RECOMMENDATIONS: ULTRASOUND-GUIDED CORE BIOPSY: LEFT BREAST PLEASE NOTE: A NORMAL MAMMOGRAM DOES NOT EXCLUDE THE POSSIBILITY OF BREAST CANCER. A CLINICALLY SUSPICIOUS PALPABLE LUMP SHOULD BE BIOPSIED. Dictated by: Dariel Duckworth M.D. on 03/29/2022 at 11:33 Approved by: Dariel Duckworth M.D. on 03/29/2022 at 11:41 Normal [facility] US PELVIS AND TRANSVAGon US PELVIS AND TRANSVAG EXAMINATION: US PELVIS AND TRANSVAG HISTORY: Abnormal uterine bleeding unrelated to menstrual cycle COMPARISON: No relevant comparison available. FINDINGS: Transabdominal and transvaginal images The uterus is retroverted. The uterus is normal in size, contour and myometrial echotexture measuring 8.0 x 5.8 x 4.5 cm. No focal myometrial mass. The endometrium measures 8.8 mm, normal. The right ovary measures 3.6 x 2.7 x 2.2 cm. Normal subcentimeter follicles. Normal color and Doppler flow. Normal resistive index 0.5. The left ovary measures 2.8 x 1.9 x 2.7 cm. Normal subcentimeter follicles. Normal color and Doppler flow. Normal resistive index of 0.6 IMPRESSION: Normal exam Electronically authenticated by: LEONEL SIMMONS Date: 2022-02-06 16:26 Normal [facility] CHLAMYDIA/GONOCOCCUS CODY (SW AB/URINE/PAPon 01-18-2022 Chlamydia trachomatis, CODY Negative Normal Negative [facility] Comment on above: Performed By: #### C T/NGNA #### [facility] [address] [place] [address] Dr. Rex Santana Neisseria gonorrhoeae, CODY Negative Normal Negative [facility] Comment on above: Performed By: #### C T/NGNA #### [facility] [address] [place] [address] Dr. Rex Santana VAGINITIS/VAGINOSIS DNA PROB Eloy 01-17-2022 Eve species Negative Normal Negative [facility] Comment on above: Performed By: #### V AGINT #### [facility] [address] [place] [address] Dr. Rex Santaan Gardnerella vaginalis Negative Normal Negative [facility] Comment on above: Performed By: #### V AGINT #### [facility] [address] [place] [address] Dr. Rex Santana Trichomonas vaginalis Negative Normal Negative [facility] Comment on above: Performed By: #### V AGINT #### [facility] [address] [place] [address] Dr. Rex Santana Urinalysis - DIPSTICKon 10-0 Appearance (U) CLEAR [employer] Other Bilirubin Ql (U) Negative [employer] Other Color (U) YELLOW [employer] Other Glucose Ql (U) Negative [employer] Other Hemoglobin Ql (U) Negative [employer] Other Ketones Ql (U) Negative [employer] Other Leukocyte esterase Test strip Ql (U) SMALL [employer] Other Nitrite Ql (U) Negative [employer] Other pH (U) 8.5 [pH] [employer] Other Protein Ql (U) Negative [employer] Other Specific gravity (U) [Rel density] 1.020 [employer] Other Urobilinogen (U) [Mass/Vol] 0.2 mg/dL [employer] Other Urinalysis - DIPSTICK [employer] Other Urine Cultureon 06-06-2021 Urine Culture >100,000 [employer] Other Urine Culture <16 [employer] Other Urine Culture >16 [employer] Other Urine Culture <4 [employer] Other Urine Culture 16 [employer] Other Urine Culture <2 [employer] Other Urine Culture <1 [employer] Other Urine Culture <0.5 [employer] Other Urine Culture <32 [employer] Other Urine Culture <2/38 [employer] Other Vital Signs Date Time Vital Sign Value Performing Clinician Facility 03-15-2025 13:37-0400 Body temperature 98.8 [degF] Brianne Davila DNP Work Phone: [facility] 03-15-2025 13:37-0400 Diastolic blood pressure 74 mm[Hg] Brianne Davila DNP Work Phone: [facility] 03-15-2025 13:37-0400 Heart rate 71 /min Brianne Davila DNP Work Phone: [facility] 03-15-2025 13:37-0400 SaO2% (BldA) [Mass fraction] 99 % Brianne Davila DNP Work Phone: [facility] 03-15-2025 13:37-0400 Systolic blood pressure 112 mm[Hg] Brianne Davila DNP Work Phone: [facility] 02-23-2025 16:23-0400 Body temperature 100.1 [degF] Brianne Davila DNP Work Phone: [facility] 02-23-2025 15:43-0400 Body temperature 98.3 [degF] Brianne Davila DNP Work Phone: [facility] 02-23-2025 15:43-0400 Diastolic blood pressure 80 mm[Hg] Brianne Davila DNP Work Phone: [facility] 02-23-2025 15:43-0400 Heart rate 95 /min Brianne Davila DNP Work Phone: [facility] 02-23-2025 15:43-0400 SaO2% (BldA) [Mass fraction] 98 % Brianne Davila DNP Work Phone: [facility] 02-23-2025 15:43-0400 Systolic blood pressure 126 mm[Hg] Brianne Davila DNP Work Phone: [facility] 12-30-2024 10:51-0400 Body mass index (BMI) [Ratio] 36.34 kg/m2 Zaki Janice DO Work Phone: [facility] 12-30-2024 10:51-0400 Body weight 108.41 kg Zaki Janice DO Work Phone: [facility] 12-30-2024 10:51-0400 Diastolic blood pressure 82 mm[Hg] Zaki Janice DO Work Phone: [facility] 12-30-2024 10:51-0400 Systolic blood pressure 120 mm[Hg] Zaki Camacho DO Work Phone: [facility] 04-29-2024 12:44-0400 Body height 172.72 cm [facility] 04-29-2024 12:44-0400 Body mass index (BMI) [Ratio] 38.6 kg/m2 [facility] 04-29-2024 12:44-0400 Body temperature 98.5 [degF] [facility] 04-29-2024 12:44-0400 Body weight 115.21 kg [facility] 04-29-2024 12:44-0400 Diastolic blood pressure 85 mm[Hg] [facility] 04-29-2024 12:44-0400 Heart rate 95 /min [facility] 04-29-2024 12:44-0400 SaO2% (BldA) [Mass fraction] 98 % [facility] 04-29-2024 12:44-0400 Systolic blood pressure 127 mm[Hg] [facility] 03-11-2024 10:18-0400 Body height 172.72 cm [facility] 03-11-2024 10:18-0400 Body mass index (BMI) [Ratio] 38.1 kg/m2 [facility] 03-11-2024 10:18-0400 Body weight 113.85 kg [facility] 03-11-2024 10:18-0400 Diastolic blood pressure 68 mm[Hg] [facility] 03-11-2024 10:18-0400 Heart rate 77 /min [facility] 03-11-2024 10:18-0400 SaO2% (BldA) [Mass fraction] 98 % [facility] 03-11-2024 10:18-0400 Systolic blood pressure 118 mm[Hg] [facility] 08-22-2023 10:50-0500 Body height 171.45 cm Colette Quintana Other [employer] Other 08-22-2023 10:50-0500 Body mass index (BMI) [Ratio] 36.26 kg/m2 Colette Quintana Other [employer] Other 08-22-2023 10:50-0500 Body temperature 97.8 [degF] Colette Quintana Other [employer] Other 08-22-2023 10:50-0500 Body weight 106.6 kg Colette Quintana Other [employer] Other 08-22-2023 10:50-0500 Diastolic blood pressure 74 mm[Hg] Colette Quintana Other [employer] Other 08-22-2023 10:50-0500 SaO2% (BldA) [Mass fraction] 100 % Colette Quintana Other [employer] Other 08-22-2023 10:50-0500 Systolic blood pressure 106 mm[Hg] Colette Quintana Other [employer] Other 07-08-2023 13:15-0500 Body height 171.45 cm Karli Mendez Other [employer] Other 07-08-2023 13:15-0500 Body mass index (BMI) [Ratio] 35.49 kg/m2 Karli Mendez Other [employer] Other 07-08-2023 13:15-0500 Body temperature 97.7 [degF] Karli Mendez Other [employer] Other 07-08-2023 13:15-0500 Body weight 104.33 kg Karli Mendez Other [employer] Other 07-08-2023 13:15-0500 Diastolic blood pressure 93 mm[Hg] Karli Mendez Other [employer] Other 07-08-2023 13:15-0500 Respiratory rate 18 /min Karli Mendez Other [employer] Other 07-08-2023 13:15-0500 Systolic blood pressure 137 mm[Hg] Karli Mendez Other [employer] Other 11-14-2022 15:00-0400 Body height 171.45 cm Brianne Davila Other [employer] Other 11-14-2022 15:00-0400 Body mass index (BMI) [Ratio] 33.17 kg/m2 Brianne Davila Other [employer] Other 11-14-2022 15:00-0400 Body weight 97.52 kg Brianne Davila Other [employer] Other 11-14-2022 15:00-0400 Diastolic blood pressure 70 mm[Hg] Brianne Davila Other [employer] Other 11-14-2022 15:00-0400 Respiratory rate 18 /min Brianne Davila Other [employer] Other 11-14-2022 15:00-0400 SaO2% (BldA) [Mass fraction] 97 % Brianne Davila Other [employer] Other 11-14-2022 15:00-0400 Systolic blood pressure 118 mm[Hg] Brianne Davila Other [employer] Other 08-18-2022 12:10-0500 Body height 171.45 cm Wade Dennis Other [employer] Other 08-18-2022 12:10-0500 Body mass index (BMI) [Ratio] 32.4 kg/m2 Wade Dennis Other [employer] Other 08-18-2022 12:10-0500 Body temperature 98.7 [degF] Wade Dennis Other [employer] Other 08-18-2022 12:10-0500 Body weight 95.26 kg Waed Dennis Other [employer] Other 08-18-2022 12:10-0500 Diastolic blood pressure 79 mm[Hg] Wade Dennis Other [employer] Other 08-18-2022 12:10-0500 Respiratory rate 18 /min Wade Dennis Other [employer] Other 08-18-2022 12:10-0500 SaO2% (BldA) [Mass fraction] 100 % Wade Dennis Other [employer] Other 08-18-2022 12:10-0500 Systolic blood pressure 124 mm[Hg] Wade Dennis Other [employer] Other 07-23-2022 20:53-0500 Body height 172.72 cm MITRA Davila Work Phone: [facility] 07-23-2022 20:53-0500 Body temperature 98.4 [degF] MITRA Davila Work Phone: [facility] 07-23-2022 20:53-0500 Body weight 95.4 kg MITRA Davila Work Phone: [facility] 07-23-2022 20:53-0500 Diastolic blood pressure 79 mm[Hg] DNP Brianne Jenkinsle Work Phone: [facility] 07-23-2022 20:53-0500 Heart rate 92 /min DNP Brianne Jenkinsle Work Phone: [facility] 07-23-2022 20:53-0500 Respiratory rate 16 /min DNP Brianne Jenkinsle Work Phone: [facility] 07-23-2022 20:53-0500 SaO2% (BldA) [Mass fraction] 99 % DNP Brianne Jenkinsle Work Phone: [facility] 07-23-2022 20:53-0500 Systolic blood pressure 144 mm[Hg] DNP Brianne Jenkinsle Work Phone: [facility] 04-15-2022 11:15-0400 Body height 171.45 cm Brianne Lola Other [employer] Other 04-15-2022 11:15-0400 Body mass index (BMI) [Ratio] 34.87 kg/m2 Brianne Lola Other [employer] Other 04-15-2022 11:15-0400 Body temperature 97.3 [degF] Brianne Davila Other [employer] Other 04-15-2022 11:15-0400 Body weight 102.51 kg Brianne Lola Other [employer] Other 04-15-2022 11:15-0400 Diastolic blood pressure 70 mm[Hg] Brianne Davila Other [employer] Other 04-15-2022 11:15-0400 Respiratory rate 18 /min Brianne Davila Other [employer] Other 04-15-2022 11:15-0400 SaO2% (BldA) [Mass fraction] 99 % Brianne Lola Other [employer] Other 04-15-2022 11:15-0400 Systolic blood pressure 110 mm[Hg] Brianne Davila Other [employer] Other 12-25-2021 15:00-0400 Body height 171.45 cm Brianne Lola Other [employer] Other 12-25-2021 15:00-0400 Body mass index (BMI) [Ratio] 35.89 kg/m2 Brianne Lola Other [employer] Other 12-25-2021 15:00-0400 Body temperature 97.1 [degF] Brianne Davila Other [employer] Other 12-25-2021 15:00-0400 Body weight 105.51 kg Brianne Lola Other [employer] Other 12-25-2021 15:00-0400 Diastolic blood pressure 70 mm[Hg] Brianne Davila Other [employer] Other 12-25-2021 15:00-0400 Respiratory rate 18 /min Brianne Davila Other [employer] Other 12-25-2021 15:00-0400 SaO2% (BldA) [Mass fraction] 97 % Brianne Davila Other [employer] Other 12-25-2021 15:00-0400 Systolic blood pressure 120 mm[Hg] Brianne Davila Other [employer] Other 11-06-2021 14:15-0500 Body height 171.45 cm Brianne Davila Other [employer] Other 11-06-2021 14:15-0500 Body mass index (BMI) [Ratio] 34.67 kg/m2 Brianne Lola Other [employer] Other 11-06-2021 14:15-0500 Body temperature 98.5 [degF] Brianne Davila Other [employer] Other 11-06-2021 14:15-0500 Body weight 101.92 kg Brianne Davila Other [employer] Other 11-06-2021 14:15-0500 Diastolic blood pressure 70 mm[Hg] Brianne Davila Other [employer] Other 11-06-2021 14:15-0500 Respiratory rate 18 /min Brianne Davila Other [employer] Other 11-06-2021 14:15-0500 SaO2% (BldA) [Mass fraction] 99 % Brianne Davila Other [employer] Other 11-06-2021 14:15-0500 Systolic blood pressure 118 mm[Hg] Brianne Davila Other [employer] Other 09-07-2021 11:00-0500 Body height 171.45 cm Brianne Davila Other [employer] Other 09-07-2021 11:00-0500 Body temperature 97.8 [degF] Brianne Lola Other [employer] Other 09-07-2021 11:00-0500 Respiratory rate 18 /min Brianne Davila Other [employer] Other 09-07-2021 11:00-0500 SaO2% (BldA) [Mass fraction] 98 % Brianne Davila Other [employer] Other 07-23-2021 14:30-0500 Body height 171.45 cm Brianne Davila Other [facility] Other 07-23-2021 14:30-0500 Body mass index (BMI) [Ratio] 33.37 kg/m2 Brianne Davila Other [facility] Other 07-23-2021 14:30-0500 Body temperature 97.4 [degF] Brianne Davila Other [facility] Other 07-23-2021 14:30-0500 Body weight 98.11 kg Brianne Davila Other [facility] Other 07-23-2021 14:30-0500 Diastolic blood pressure 70 mm[Hg] Brianne Davila Other [facility] Other 07-23-2021 14:30-0500 Respiratory rate 18 /min Brianne Davila Other [facility] Other 07-23-2021 14:30-0500 SaO2% (BldA) [Mass fraction] 98 % Brianne Davila Other [facility] Other 07-23-2021 14:30-0500 Systolic blood pressure 118 mm[Hg] Brianne Davila Other [facility] Other 06-06-2021 12:00-0400 Body height 171.45 cm Brianne Davila Other [facility] Other 06-06-2021 12:00-0400 Body mass index (BMI) [Ratio] 33.02 kg/m2 Brianne Davila Other [facility] Other 06-06-2021 12:00-0400 Body temperature 97.7 [degF] Brianne Davila Other [facility] Other 06-06-2021 12:00-0400 Body weight 97.07 kg Brianne Davila Other [facility] Other 06-06-2021 12:00-0400 Diastolic blood pressure 70 mm[Hg] Brianne Davila Other [facility] Other 06-06-2021 12:00-0400 Respiratory rate 18 /min Brianne Davila Other [facility] Other 06-06-2021 12:00-0400 SaO2% (BldA) [Mass fraction] 98 % Brianne Davila Other [facility] Other 06-06-2021 12:00-0400 Systolic blood pressure 120 mm[Hg] Brianne Davila Other [facility] Other Encounters Encounter Date Encounter Type Care Provider Facility Start: 03-16-2025 End: 03-16-2025 ambulatory Brianne Davila DNP Work Phone: [facility] Work Phone: Start: 03-16-2025 End: 03-16-2025 Patient encounter procedure Janice Escobar MD -[facility] Work Phone: Start: 03-15-2025 End: 03-15-2025 ambulatory Brianne Lola MANRIQUEZ Work Phone: [facility] Work Phone: Start: 03-15-2025 End: 03-15-2025 Patient encounter procedure Hamlet Worley [employer] [facility] [employer] -[facility] Work Phone: Start: 02-23-2025 End: 02-23-2025 Emergency department patient visit [facility] Start: 02-23-2025 End: 02-23-2025 ambulatory Brianne Lola MANRIQUEZ Work Phone: [facility] Work Phone: Start: 02-23-2025 End: 02-23-2025 Patient encounter procedure Aydee Stephens [employer] [facility] [employer] TECHNICIAN -[facility] Work Phone: Start: 12-30-2024 End: 12-30-2024 Bamboo flowsheet Zaki Janice DO Work Phone: [facility] Start: 12-30-2024 End: 12-30-2024 Bamboo flowsheet Zaki Janice DO Work Phone: [facility] Start: 12-30-2024 End: 12-30-2024 Office outpatient visit 15 minutes Zaki Janice DO Work Phone: [facility] Comment on above: Encounter for other general counseling or advice on contraception Start: 12-30-2024 End: 12-30-2024 ambulatory ZAKI JANICE Not Available Start: 04-29-2024 End: 04-29-[address] [facility] Work Phone: Start: 04-29-2024 End: 04-29-2024 Patient encounter procedure [facility] [place] Work Phone: Start: 04-06-2024 End: 04-06-2024 ambulatory ZAKI JANICE Not Available Start: 03-11-2024 End: 03-11-[address] [facility] Work Phone: Start: 03-11-2024 End: 03-11-2024 Patient encounter procedure [facility] [place] Work Phone: Start: 08-22-2023 End: 08-22-2023 ambulatory Colette Quintana Other [facility] Other Start: 08-22-2023 Office outpatient vi sit 25 minutes Colette Quintana [facility] [address] Start: 08-13-2023 End: 08-13-2023 ambulatory DNP Brianne Kaple Work Phone: [facility] Work Phone: Start: 08-13-2023 End: 08-13-2023 Patient encounter procedure DNP Brianne Kaple Work Phone: [facility]-Electrodiagnostics Work Phone: Start: 08-12-2023 End: 08-12-2023 ambulatory DNP Brianne Kaple Work Phone: [facility] Work Phone: Start: 08-12-2023 End: 08-12-2023 Patient encounter procedure DNP Brianne Kaple Work Phone: [facility] Start: 07-08-2023 End: 07-08-2023 ambulatory Karli Mendez Other [facility] Other Start: 07-08-2023 Office outpatient vi sit 15 minutes Karli Mendez [facility] [address] Start: 07-03-2023 End: 07-03-2023 ambulatory Brianne Davila Other [facility] Other Start: 07-03-2023 Telephone encounter Brianne Azar [facility] [place] Start: 12-06-2022 End: 12-06-2022 ambulatory Brianne Davila Other [facility] Other Start: 12-06-2022 Telephone encounter Brianne Davila [facility] Start: 12-04-2022 End: 12-04-2022 ambulatory DNP Brianne Jenkinsmariel Work Phone: [facility] Work Phone: Start: 12-04-2022 End: 12-04-2022 Patient encounter procedure DNP Briannejovanny Jenkinsmariel Work Phone: [facility] Work Phone: Start: 11-28-2022 End: 11-28-2022 ambulatory Brianne Kapmariel Other [facility] Other Start: 11-28-2022 Telephone encounter Brianne Azar [facility] [place] Start: 11-25-2022 End: 11-25-2022 ambulatory Brianne Davila Other [facility] Other Start: 11-25-2022 Telephone encounter Brianne Davila [facility] [place] Start: 11-14-2022 End: 11-14-2022 ambulatory Brianne Davila Other [facility] Other Start: 11-14-2022 Encounter for other preprocedural examination Brianne MURPHY [facility] [place] Start: 11-14-2022 Office outpatient vi sit 25 minutes Brianne Davila [facility] [place] Start: 08-18-2022 End: 08-18-2022 ambulatory Wade Dennis Other [facility] Other Start: 08-18-2022 Office outpatient vi sit 15 minutes Wade Dennis [facility] Start: 07-29-2022 End: 07-29-2022 ambulatory Brianne Davila Other [facility] Other Start: 07-29-2022 Telephone encounter Brianne Jenkinsmariel [facility] [place] Start: 07-23-2022 End: 07-23-2022 Emergency department patient visit DNP Brianne Jenkinsmariel Work Phone: [facility]-Emergency Room Start: 07-08-2022 End: 07-08-2022 ambulatory Brianne Lola Other [facility] Other Start: 07-08-2022 Telephone encounter Brianne Jenkinsmariel [facility] [place] Start: 07-04-2022 End: 07-04-2022 ambulatory DNP Brianne Davila Work Phone: [facility] Work Phone: Start: 07-04-2022 End: 07-04-2022 Patient encounter procedure DNP Brianne Jenkinsmariel Work Phone: [facility] Start: 04-15-2022 End: 04-15-2022 ambulatory Brianne Davila Other [facility] Other Start: 04-15-2022 Encounter for other preprocedural examination Brianne Davila [facility] [place] Start: 04-15-2022 Office outpatient vi sit 25 minutes Brianne Davila [facility] [place] Start: 04-04-2022 End: 04-04-[address] NONE LISTED REQUEST Facility:[facility] Start: 03-29-2022 End: 03-30-[address] NONE LISTED REQUEST Facility:[facility] Start: 03-26-2022 End: 03-26-[address] ZAKI CAMACHO Facility:[facility] Start: 02-18-2022 End: 02-18-2022 ambulatory Brianne Davila Other [facility] Other Start: 02-18-2022 Telephone encounter Brianne Davila [facility] [place] Start: 02-06-2022 End: 02-07-[address] NONE LISTED REQUEST Facility:[facility] Start: 01-15-2022 End: 01-15-[address] NONE LISTED REQUEST Facility:[facility] Start: 12-31-2021 End: 12-31-2021 ambulatory Brianne Davila Other [facility] Other Start: 12-31-2021 Telephone encounter Brianne Davila [facility] Start: 12-25-2021 End: 12-25-2021 ambulatory Brianne Davila Other [facility] Other Start: 12-25-2021 Office outpatient vi sit 25 minutes Brianne Davila [facility] [place] Start: 12-24-2021 End: 12-24-2021 ambulatory Brianne Davila Other [facility] Other Start: 12-24-2021 Telephone encounter Brianne Davila [facility] [place] Start: 11-06-2021 End: 11-06-2021 ambulatory Brianne Davila Other [facility] Other Start: 11-06-2021 Office outpatient vi sit 15 minutes Brianne Davila [facility] [place] Start: 10-15-2021 End: 10-15-2021 ambulatory Brianne Davila Other [facility] Other Start: 10-15-2021 Telephone encounter Brianne Azar [facility] Start: 09-07-2021 End: 09-07-2021 ambulatory Brianne Davila Other [facility] Other Start: 09-07-2021 Office outpatient vi sit 15 minutes Brianne Davila [facility] Start: 07-24-2021 End: 07-24-2021 ambulatory Brianne Davila Other [facility] Other Start: 07-24-2021 Telephone encounter Brianne Azar [facility] Start: 07-23-2021 End: 07-23-2021 ambulatory Brianne Davila Other [facility] Other Start: 07-23-2021 Office outpatient vi sit 25 minutes Brianne Davila [facility] Start: 06-06-2021 Office outpatient vi sit 15 minutes Brianne Davila [facility] Procedures Date Procedure Procedure Detail Performing Clinician Start: 03-15-2025 X-ray of right middl e finger Brianne Davila DNP Work Phone: Start: 06-06-2021 Piperacillin/tazobactam Brianne Davila Other H/O: surgery H/O abdominoplasty MITRA Davila Work Phone: Plan of Treatment Date Care Activity Detail Author Start: 04-18-2025 End: 04-18-2025 Patient encounter procedure 04/18/2025 11:00 AM EDT Office Visit [facility] [address] [facility] [place] [id number] Zaki Camacho DO [address] [place] [address] [facility] Start: 12-30-2024 End: 12-30-2024 Patient encounter procedure 12/30/2024 10:20 AM EDT Office Visit [facility] [address] [place] [address] Zaki Camacho, DO [address] [place] [address] [place] [address] Arrived [facility] Comment on above: Arrived Start: 03-11-2024 Patient referral [facility] Work Phone: Start: 12-04-2022 [facility] Start: 07-23-2022 Duplex scan of lower limb veins US venous duplex LE RT [facility] Start: 07-04-2022 [facility] Amphetamines [Presen ce] in Urine by Screen method [facility] Barbiturates [Presen ce] in Urine by Screen method [facility] Benzodiazepines [Pre sence] in Urine [facility] Benzoylecgonine [Pre sence] in Urine [facility] Cannabinoids [Presen ce] in Urine by Screen method [facility] Electromyography [facility] Hepatitis C virus Ab Signal/Cutoff in Serum or Plasma by Immunoassay [facility] Work Phone: Hepatitis C virus Ig G Ab [Presence] in Serum or Plasma by Immunoassay [facility] HIV 1+2 Ab+HIV1 p24 Ag [Presence] in Serum or Plasma by Immunoassay [facility] Work Phone: HIV 1+2 Ab+HIV1 p24 Ag [Presence] in Serum or Plasma by Immunoassay [facility] Opiates [Presence] in Urine [facility] Patient Education Contusion (DC) [facility] Work Phone: Patient referral [facility] Work Phone: Phencyclidine [Prese nce] in Urine [facility] Immunizations Immunization Date Immunization Notes Care Provider Fa laron 03-21-2010 human papilloma viru s vaccine, quadrivalent Brianne Davila Other [facility] 11-13-2009 human papilloma viru s vaccine, quadrivalent Brianne Davila Other [facility] 09-11-2009 human papilloma viru s vaccine, quadrivalent Brianne Davila Other [facility] Payers Date Payer Category Payer Self-pay [id number] Unknown [id number] 2022 Private Health Insurance [id number] 1990 Unknown [id number] 2.16.84 [id number] 1990 Unknown [id number] 2.16.84 [id number] 1990 Unknown [id number] 2.16.84 [id number] 1990 Unknown [id number] 2.16.84 [id number] 1990 Unknown [id number] 2.16.84 [id number] 1990 Unknown [id number] 2.16.84 [id number] 1990 Unknown [id number] 2.16.84 [id number] 1990 Unknown [id number] 2.16.8 [id number] 1990 Unknown [id number] 2.16.8 [id number] 1990 Unknown [id number] 2.16.8 [id number] 1959 Unknown [id number] Private Health Insurance [id number] Unknown [id number] Unknown [id number] Unknown [id number] 2.16.8 [id number] Social History Date Type Detail Facility Tobacco smoking stat us [facility] Unknown if ever smoked [facility] Start: 1990 Sex Assigned At Female F [facility] Start: 04-06-2024 Sex Assigned At N [facility] Start: 12-22-2021 End: 02-12-2023 Tobacco smoking status CTIS Ex-smoker (finding) [facility] Start: 07-23-2022 End: 11-10-2023 Tobacco smoking status [facility] Never smoked tobacco (finding) [facility] Start: 04-06-2024 Tobacco use and exposure Smokeless tobacco non-user [facility] Start: 12-14-2024 Alcoholic beverage intake Current drinker of alcohol (finding) [facility] Start: 04-06-2024 History of Social function [facility] Start: 04-06-2024 Alcohol Comment Social [facility] Start: 04-01-2023 Gender identity Identifies as female gender (finding) [facility] Start: 12-13-2009 Sex Female (finding) [facility] Tobacco smoking status [facility] Goals Date Patient Goal Desired Activity /State Clinical Notes 05-08-2017 to 03-02-2025 Note Date & Type Note Facility 03-02-2025 Note Microbiology PROCEDURE: Blood Culture Charcoal [R1] SOURCE: Blood BODY SITE: Arm L COLLECTED DATE/TIME: 02/23/2025 17:49 EDT RECEIVED DATE/TIME: 02/23/2025 18:13 EDT START DATE/TIME: 02/23/2025 18:13 EDT FREE TEXT SOURCE: Luis Goetz, Esperanza Smith M.D., Esperanza Mcintosh FINAL REPORTS Final Report [] Verified Date/Time: 03/02/2025 21:00 EDT No growth at 7 days. Performing Locations R1: This test was performed at: [facility], [address] [place] [address], [id number] , [place], [facility] Comment on above: Performed By: #### [id number] #### [facility] [address] [place] [id number] 02-26-2025 Note Microbiology PROCEDURE: Blood Culture Charcoal [R1] SOURCE: Blood BODY SITE: Arm R COLLECTED DATE/TIME: 02/23/2025 17:58 EDT RECEIVED DATE/TIME: 02/23/2025 18:14 EDT START DATE/TIME: 02/23/2025 18:14 EDT FREE TEXT SOURCE: rt ghazal Smith M.D., Esperanza Smith M.D., Esperanza Mcintosh FINAL REPORTS Final Report [] Verified Date/Time: 02/26/2025 08:47 EDT Klebsiella (Enterobacter) aerogenes In 1 of 2 blood culture bottles drawn. Isolated from aerobic bottle Preliminary gram negative paulina device engineer species printed to ED and Result called to Paola Tabares (ED) by CSS and results read back for confirmation on 02/25/2025 13:12:09 Final Report Printed to Emergency Dept ([id number]) Result Review. 02/26/2025 CSS SUSCEPTIBILITY RESULTS LEGEND: S=Susceptible, N/R=Not Reported, Blank=Data not available, or drug not advisable or tested, I=Intermediate, ESBL=Extended spectrum beta-lactamase, R=Resistant, TFG=Thymidine-dependent strain, ALFONSO=Beta-lactamase positive, YOLANDA=mcg/m;(mg/L), S*=Predicted susceptible interp, R*=Predicted resistant interp Entaer Antibiotic YOLANDA Dilutn YOLANDA Interp Ampicillin >16 R Ampicillin/ <=8/4 R* Sulbactam Cefazolin >16 R Cefepime <=2 S Ceftazidime/ <=8 S Avibactam Ceftriaxone <=1 S Cefuroxime 8 R* Ciprofloxacin <=0.25 S Ertapenem <=0.5 S Gentamicin <=2 S Levofloxacin <=0.5 S Meropenem <=1 S Piperacillin/ <=8 S Tazobactam Tetracycline <=4 S Tobramycin <=2 S Trimethoprim/ <=2/38 S Sulfa Performing Locations R1: This test was performed at: [facility], [address] [place] [address], [id number] , , [facility] Comment on above: Performed By: #### [id number] #### [facility] [address] [place] [id number] 02-23-2025 Hospital Discharg e instructions Patient Education 02/23/2025 20:49:36 Urinary Tract Infection, Adult, Oiwx-af-Doyx Urinary Tract Infection, Adult A urinary tract infection (UTI) is an infection of any part of the urinary tract. The urinary tract includes: The kidneys. The ureters. The bladder. The urethra. These organs make, store, and get rid of pee (urine) in the body. What are the causes? This infection is caused by germs (bacteria) in your genital area. These germs grow and cause swelling (inflammation) of your urinary tract. What increases the risk? The following factors may make you more likely to develop this condition: Using a small, thin tube (catheter) to drain pee. Not being able to control when you pee or poop (incontinence). Being female. If you are female, these things can increase the risk: ?Using these methods to prevent : ?A medicine that kills sperm (spermicide). ?A device that blocks sperm (diaphragm). ?Having low levels of a female hormone (estrogen). ?Being . You are more likely to develop this condition if: You have genes that add to your risk. You are sexually active. You take antibiotic medicines. You have trouble peeing because of: ?A prostate that is bigger than normal, if you are male. ?A blockage in the part of your body that drains pee from the bladder. ?A kidney stone. ?A nerve condition that affects your bladder. ?Not getting enough to drink. ?Not peeing often enough. You have other conditions, such as: ?Diabetes. ?A weak disease-fighting system (immune system). ?Sickle cell disease. ?Gout. ?Injury of the spine. What are the signs or symptoms? Symptoms of this condition include: Needing to pee right away. Peeing small amounts often. Pain or burning when peeing. Blood in the pee. Pee that smells bad or not like normal. Trouble peeing. Pee that is cloudy. Fluid coming from the vagina, if you are female. Pain in the belly or lower back. Other symptoms include: Vomiting. Not feeling hungry. Feeling mixed up (confused). This may be the first symptom in older adults. Being tired and grouchy (irritable). A fever. Watery poop (diarrhea). How is this treated? Taking antibiotic medicine. Taking other medicines. Drinking enough water. In some cases, you may need to see a specialist. Follow these instructions at home: Medicines Take tsic-iqh-uoorvoj and prescription medicines only as told by your doctor. If you were prescribed an antibiotic medicine, take it as told by your doctor. Do not stop taking it even if you start to feel better. General instructions Make sure you: ?Pee until your bladder is empty. ?Do not hold pee for a long time. ?Empty your bladder after sex. ?Wipe from front to back after peeing or pooping if you are a female. Use each tissue one time when you wipe. Drink enough fluid to keep your pee pale yellow. Keep all follow-up visits. Contact a doctor if: You do not get better after 1 2 days. Your symptoms go away and then come back. Get help right away if: You have very bad back pain. You have very bad pain in your lower belly. You have a fever. You have chills. You feeling like you will vomit or you vomit. Summary A urinary tract infection (UTI) is an infection of any part of the urinary tract. This condition is caused by germs in your genital area. There are many risk factors for a UTI. Treatment includes antibiotic medicines. Drink enough fluid to keep your pee pale yellow. This information is not intended to replace advice given to you by your health care provider. Make sure you discuss any questions you have with your health care provider. Document Revised: 03/25/2021 Document Reviewed: 03/30/2021 [employer] Patient Education 2023 [employer]. Follow Up Care 02/23/2025 17:27:26 With:LEONEL RODRIGUEZ Address: [facility] [address] [place] [address]- Business (1) When:02/26/2025 20:30:16 Comments:Take the antibiotics as prescribed you have completed the course. You can use the Zofran every 6 hours as needed for nausea and vomiting. Please follow-up with your primary care doctor for further evaluation management. Please return the ED for any new or worsening symptoms. [facility] 02-23-2025 Note ED Patient Education Note Obstetrics and Gynecology Urinary Tract Infection, Adult A urinary tract infection (UTI) is an infection of any part of the urinary tract. The urinary tract includes: ??? The kidneys. ??? The ureters. ??? The bladder. ??? The urethra. These organs make, store, and get rid of pee (urine) in the body. What are the causes? This infection is caused by germs (bacteria) in your genital area. These germs grow and cause swelling (inflammation) of your urinary tract. What increases the risk? The following factors may make you more likely to develop this condition: ??? Using a small, thin tube (catheter) to drain pee. ??? Not being able to control when you pee or poop (incontinence). ??? Being female. If you are female, these things can increase the risk: ? Using these methods to prevent : ? A medicine that kills sperm (spermicide). ? A device that blocks sperm (diaphragm). ? Having low levels of a female hormone (estrogen). ? Being . You are more likely to develop this condition if: ??? You have genes that add to your risk. ??? You are sexually active. ??? You take antibiotic medicines. ??? You have trouble peeing because of: ? A prostate that is bigger than normal, if you are male. ? A blockage in the part of your body that drains pee from the bladder. ? A kidney stone. ? A nerve condition that affects your bladder. ? Not getting enough to drink. ? Not peeing often enough. ??? You have other conditions, such as: ? Diabetes. ? A weak disease-fighting system (immune system). ? Sickle cell disease. ? Gout. ? Injury of the spine. What are the signs or symptoms? Symptoms of this condition include: ??? Needing to pee right away. ??? Peeing small amounts often. ??? Pain or burning when peeing. ??? Blood in the pee. ??? Pee that smells bad or not like normal. ??? Trouble peeing. ??? Pee that is cloudy. ??? Fluid coming from the vagina, if you are female. ??? Pain in the belly or lower back. Other symptoms include: ??? Vomiting. ??? Not feeling hungry. ??? Feeling mixed up (confused). This may be the first symptom in older adults. ??? Being tired and grouchy (irritable). ??? A fever. ??? Watery poop (diarrhea). How is this treated? Taking antibiotic medicine. ??? Taking other medicines. ??? Drinking enough water. In some cases, you may need to see a specialist. Follow these instructions at home: Medicines ??? Take mdtg-mxd-gssoltd and prescription medicines only as told by your doctor. ??? If you were prescribed an antibiotic medicine, take it as told by your doctor. Do not stop taking it even if you start to feel better. General instructions ??? Make sure you: ? Pee until your bladder is empty. ? Do not hold pee for a long time. ? Empty your bladder after sex. ? Wipe from front to back after peeing or pooping if you are a female. Use each tissue one time when you wipe. ??? Drink enough fluid to keep your pee pale yellow. ??? Keep all follow-up visits. Contact a doctor if: ??? You do not get better after 1?2 days. ??? Your symptoms go away and then come back. Get help right away if: ??? You have very bad back pain. ??? You have very bad pain in your lower belly. ??? You have a fever. ??? You have chills. ??? You feeling like you will vomit or you vomit. Summary ??? A urinary tract infection (UTI) is an infection of any part of the urinary tract. ??? This condition is caused by germs in your genital area. ??? There are many risk factors for a UTI. ??? Treatment includes antibiotic medicines. ??? Drink enough fluid to keep your pee pale yellow. This information is not intended to replace advice given to you by your health care provider. Make sure you discuss any questions you have with your health care provider. Document Revised: 03/25/2021 Document Reviewed: 03/30/2021 USEREADY Patient Education ? 2023 [employer]. [facility] 02-23-2025 Evaluation note Diagnosis Onset Date Resolution Flank pain noneactive February 23 3:33pm Finger tendinitis noneactive March 152024 1:34pm [facility] Work Phone: 1(377) 951-100906-25-2025 Evaluation note* Diagnosis Onset Date Resolution Status Admit Date Flank pain noneactive February 23 3:33pm Finger tendinitis noneactive March 152024 1:34pm Other sprain of right middle finger, initial encounter acute March 012024 9:01am [facility] Work Phone: 1(585) 713-753106-25-2025 Evaluation + Plan noteExtracted from: Title:ED Note Author:Esperanza Smith M.D. te:02/23/25 1. Flank pain (R10.9: Unspec ified abdominal pain) 2. Urinary tract infection (N39.0: Urinary tract infection, site not specified) Orders: ceftriaxone + Sodium Chloride 0.9% intravenous solution 50 mL, 1,000 mg = 1 EA, IV Piggyback, Once, Stop date 02/23/25 19:19:00 EDT, STAT, Start date 02/23/25 19:19:00 EDT, 100 mL/hr, Infuse over 30 minute(s), 02/23/25 19:19:00 EDT ketorolac, 30 mg = 1 mL, Injection, IV Push, Once, Stop date 02/23/25 19:16:00 EDT, STAT, Start date 02/23/25 19:16:00 EDT, 02/23/25 19:16:00 EDT Sodium Chloride 0.9% intravenous solution, 1,000 mL, Soln-IV, IV, Once, Stop date 02/23/25 17:36:00 EDT, STAT, Start date 02/23/25 17:36:00 EDT, Infuse over 61, minute(s) Basic Metabolic Panel Blood Culture Charcoal Blood Culture Charcoal CBC w/ Auto Diff CT Abdomen/Pelvis w/o Contrast eGFR Extra SST Tube Hepatic Function Panel Lactic Acid Lipase Level PT & PTT Rapid COVID Antigen ([facility]) U Beta Hcg Qual UA with Cult Rflx Urine Culture Addendum by Izabela Thomas DO on February 23, 2025 20:31:04 EDT Patient signed out pending reevaluation. Patient reevaluated after receiving Rocephin, Toradol she is feeling improved. Discussed findings with patient she is comfortable discharge home. Is given prescription for Keflex, Zofran. She is to follow-up with her primary care doctor for further evaluation management. She is to return to the ED for any new or worsening symptoms. Diagnostic Tests Pending * Blood Culture Charcoal 02/23/25 * Blood Culture Charcoal 02/23/25 * Urine Culture 02/23/25 [facility] 05-01-2025 History of Present illness Narrative* Darcie Wrightrose, PUBLIC UTILITIES SALES REPRESENTATIVE - 12/30/2024 10:20 AM EDT Reason for Appointment: Patient ID: Nan Mendez is a 34 y.o. female who presents for Complications After Patient presents today for Consult appointment. MEDICATIONS Current Outpatient Medications Medication Instructions busPIRone (BUSPAR) 7.5 mg, Oral, 2 times daily ketoconazole (NIZOral) 2 % shampoo Topical, 2 times weekly metFORMIN XR (GLUCOPHAGE-XR) 500 mg, Oral, Daily spironolactone (Aldactone) 25 MG tablet Oral, Once tretinoin (RETIN-A) 0.1 g, Topical, Nightly Vyvanse 70 mg, Oral, Every 24 hours ALLERGIES Allergies Allergen Reactions Minocycline Headache Sulfamethoxazole-Trimethoprim Unknown Trimethoprim Hives PROBLEMS Active Ambulatory Problems Diagnosis Date Noted Anemia affecting 03/31/2023 Candidiasis 03/31/2023 Cervical strain 03/31/2023 Chronic otitis externa of left ear 03/31/2023 Dichorionic diamniotic twin in second trimester 03/31/2023 Irregular menstrual cycle 03/31/2023 Lumbosacral strain 03/31/2023 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 Myopia of both eyes 03/31/2023 Weight gain Resolved Ambulatory Problems Diagnosis Date Noted No Resolved Ambulatory Problems Past Medical History: Diagnosis Date Abnormal Pap smear of cervix Bacterial vaginosis Bartholin cyst Breast screening Chlamydia Exercise-induced asthma Fibrocystic breast Apr 2022 History of abnormal cervical Pap smear 2013 History of drug use 2016 History of use of contraceptive intrauterine device (IUD) HPV in female Kidney stones Nephrolithiasis 2014 2014 Seasonal allergies Urinary incontinence Urinary tract infection Vaginal delivery Varicella zoster HISTORY PAST MEDICAL HISTORY SOCIAL HISTORY Past Medical History: Diagnosis Date Abnormal Pap smear of cervix Bacterial vaginosis Bartholin cyst Breast screening Received clinical breast exam but not referred for further evaluation based on their clinical breast exam. Chlamydia Exercise-induced asthma Fibrocystic breast Apr 2022 History of abnormal cervical Pap smear 2012 Colpo - HPV, Mild dysplasia History of drug use 2016 Marijuana - denies drug use now History of use of contraceptive intrauterine device (IUD) Nexplanon inserted 06-29-15/Removed 01-18-15, desires 2nd HPV in female Kidney stones Lithotripsey age 19 Nephrolithiasis 2014 management 2014 full term Seasonal allergies Urinary incontinence Urinary tract infection Vaginal delivery twins Varicella zoster Weight gain Social History Tobacco Use Smoking status: Never Smokeless tobacco: Never Substance Use Topics Alcohol use: Yes Comment: Social Drug use: Never FAMILY HISTORY Family History Problem Relation Name Age of Onset Anemia Mother Hypertension Maternal Grandmother Reid Cystic fibrosis Other Mother 1st cousin(twins) No Known Problems Son No Known Problems Son No Known Problems Daughter SURGICAL HISTORY Past Surgical History: Procedure Laterality Date ABDOMINAL SURGERY 12-19-22 BARTHOLIN GLAND CYST EXCISION 2016 Marsupilization BREAST BIOPSY LITHOTRIPSY 2012 Nephrolithiasis OTHER SURGICAL HISTORY 03/03/2017 Nexplanon insertion OTHER SURGICAL HISTORY 05/08/2017 Right batholin gland excision and rectal perforation repair and rectovaginal drain placement PAP SMEAR 06/20/2016 NILM RECTAL SURGERY 05/13/2017 VAGINAL DELIVERY 2013 11.35hr Labor -full term VAGINAL DELIVERY twin REVIEW OF SYSTEMS Review of Systems: Review of Systems Constitutional: Negative. HENT: Negative. Eyes: Negative. Respiratory: Negative. Cardiovascular: Negative. Gastrointestinal: Negative. Genitourinary: Negative. Musculoskeletal: Negative. Skin: Negative. Neurological: Negative. All other systems reviewed and are negative. Hematological: Negative. Endocrine: Negative. Allergic/Immunologic: Negative. OBJECTIVE Objective: Physical Exam Constitutional: Appearance: Normal appearance. She is well-developed. Cardiovascular: Rate and Rhythm: Normal rate and regular rhythm. Pulmonary: Effort: Pulmonary effort is normal. Breath sounds: Normal breath sounds. Abdominal: General: Bowel sounds are normal. There is no distension. Palpations: Abdomen is soft. Tenderness: There is no abdominal tenderness. There is no guarding or rebound. Musculoskeletal: General: No swelling. Normal range of motion. Right lower leg: No edema. Left lower leg: No edema. Neurological: Mental Status: She is alert and oriented to person, place, and time. Skin: General: Skin is warm and dry. Psychiatric: Mood and Affect: Mood normal. Behavior: Behavior normal. Vitals and nursing note reviewed. Exam conducted with a jukebox coin collector present. Vitals: Estimated body mass index is 36.34 kg/m as calculated from the following: Height as of 04/06/24: 5' 8 . Weight as of this encounter: 239 lb. BP: 120/82 No LMP recorded. ASSESSMENT & PLAN ICD-10-CM 1. Encounter for other general counseling or advice on contraception Z30.09 Patient presents today to discuss possible side effects of current medication. Discussed options with patient and 3 month supply of Tyblume samples given today. Patient to call office if she desires to have sent to pharmacy. If patient does want them sent it needs to be sent as BERNA. Patient will return to clinic for annual appointment & as needed. Documented by Darcie Jimenez LPN on behalf of: Zaki Camacho DO documented in this encounterSoutheast Missouri [id number] Evaluation note* Encounter Date Diagnosis Assessment Notes Treatment Notes Treatment Clinical Notes Aug, Sore throat (ICD-10 - J02.9) Aug, Strep pharyngitis (ICD-10 - J02.0) Advised patient that strep test was positive. Instructed to take antibiotic as directed, complete entire course even if feeling better. Allergies and recent antibiotics reviewed. Use rx of zofran as directed. Advised that patient is contagious for 24 hours after starting antibiotic. Discussed good hand hygiene and infection control. New tooth brush and wash linens after 2-3 days of being on antibiotic to prevent reinfection. Discussed supportive care, push fluids and rest, eat soft foods and liquids that are easy to swallow, use throat lozenges and warm salt water gargles, Tylenol/Motrin as needed for fever or discomfort. Symptoms should improve in the next 48 hours, eval by PCP or UC if symptoms have not improved with treatment. Immediate eval if difficultly managing oral secretions, drooling, unilateral neck swelling, hot potato voice, persistent fever, neck pain/stiffness, severe headache, lethargy or any new or concerning symptoms arise. Patient verbalizes understanding and is agreeable to treatment plan. [facility] Other 11-07-2023 Evaluation note* Encounter Date Diagnosis Assessment Notes Treatment Notes Treatment Clinical Notes Jul, Sore throat (ICD-10 - J02.9) Strep neg, but treating as bacterial based on PE findings and exposure. Pt is to take abx as prescribed. take with food. Informed pt they are contagious for first 24 hrs on medication. Push fluids and rest. Pt denied work note today. Pt is to take otc antipyretic prn for fever and aches. Change toothbrush after 2-3 days. Pt is to be re-evaluated after treatment if sx worsen or don't improve by pcp. Pt is to call the office with any questions or concerns regarding dx and tx. Pt understood and agreed to treatment plan. Jul, Exposure to strep throat (ICD-10 - Z20.818) see above. [facility] Other 11-02-2023 Evaluation note* Encounter Date Diagnosis Assessment Notes Treatment Notes Treatment Clinical Notes Jul, Attention and concentration deficit (ICD-10 - R41.840) [facility] Other 03-30-2023 Evaluation note* Encounter Date Diagnosis Assessment Notes Treatment Notes Treatment Clinical Notes Oct, Yeast infection (ICD-10 - B37.9) [facility] Other 03-27-2023 Evaluation note* Encounter Date Diagnosis Assessment Notes Treatment Notes Treatment Clinical Notes Oct, Yeast infection (ICD-10 - B37.9) [facility] Other 03-16-2023 Evaluation note* Encounter Date Diagnosis Assessment Notes Treatment Notes Treatment Clinical Notes Oct, Generalized anxiety disorder (ICD-10 - F41.1) (Migrated) No suicidal or homicidal ideations. Stable with Buproprion and Buspar. She does follow with Dr. Anderson and will continue to do so. Specialty notes not reviewed due to confidentiality. Oct, Pre-op evaluation (ICD-10 - Z01.818) Nan is a 31 year old female who presents today for presurgical clearance. She will be having tummy tuck, inner thigh lift, he will go in to fix areas on buttocks and hip that need to be repaired from previous surgery. Dr. Zhang in [place] will again be doing her surgery. She will have this done December 19, 2022. She did have a Brazillian Butt Lift and Liposuction (BBL) to several areas on July 17, [address] Zhang (fax #[phone]) in [place]. She had general anesthesia and tolerated well without SE. The phyisican doing procedure, will be ordering her lab work and will be forwarding it to our office about 1 month prior to surgery. She will forward this to our office. 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 She is going to have general anesthesia. Has all her own real teeth. Has had general anesthesia in the past and tolerated well before. No complications. Patient presents for preop evaluation and surgical clearance for upcoming tummy tuck, inner thigh lift, he will go in to fix areas on buttocks and hip that need to be repaired from previous surgery with Dr. Zhang in [place]. He will be ordering her presurgical testing soon and she will complete when ordered. She will forward these results to our office when she completes them. All of her chronic conditions seem to be for the most part stable and well controlled. Sh is a low risk surgical candidate and she seems to be of appropriate risk for surgery; however, will await presurgical testing. Oct, Attention deficit hyperactivity disorder (ADHD), predominantly inattentive type (ICD-10 - F90.0) No suicidal or homicidal ideations. Stable with Rika. She does follow with Dr. Anderson and will continue to do so. Specialty notes not reviewed due to confidentiality. Oct, PCOS (polycystic ovarian syndrome) (ICD-10 - E28.2) She follows with her OB-DEVICE ENGINEER for this and takes Metformin and Spironolactone for this. She will continue to follow with Dr. Camacho for this. Specialty notes reviewed as received. Oct, Lumbar degenerative disc disease (ICD-10 - M51.36) Stable at this time. Has seen pain management with Dr. Choi in the past but no longer needs to follow with him as pain is resolved. Oct, Kidney stones (ICD-10 - N20.0) No recent kidney stones. Oct, Vitamin D deficiency (ICD-10 - E55.9) Stable at this time. Does not take OTC vitamin D. Oct, Acute vaginitis (ICD-10 - N76.0) She feels like she may be getting the start of BV infection due to odor and discharge. Has had this in the past and has had to take Flagyl for this. This is sent in for her today. Medication profile and possible SE reviewed with her. Take as prescribed. Notify office should symptoms persist and not improve. Oct, Other specified bacterial agents as the cause of diseases classified elsewhere (ICD-10 - B96.89) See above treatment plan. [facility] Other 12-18-2022 Evaluation note* Encounter Date Diagnosis Assessment Notes Treatment Notes Treatment Clinical Notes Aug, Sore throat (ICD-10 - J02.9) Aug, Strep pharyngitis (ICD-10 - J02.0) Symptoms presented in office today indicate Strep Throat. Take medications as directed. Saltwater gargles may help with pain and disrupts bacteria and viral infections. Continue tylenol/ibu for general discomfort. Encourage fluids. Symptoms should improve within the next 4-7 days. Aug, Cough (ICD-10 - R05.9) [facility] Other 08-15-2022 Evaluation note* Encounter Date Diagnosis Assessment Notes Treatment Notes Treatment Clinical Notes Apr, Generalized anxiety disorder (ICD-10 - F41.1) (Migrated) No suicidal or homicidal ideations. Stable with Buproprion and Buspar. She does follow with Dr. Anderson and will continue to do so. Specialty notes not reviewed due to confidentiality. Apr, Pre-op evaluation (ICD-10 - Z01.818) Nan is a 31 year old female who presents today for presurgical clearance. She will be having a Brazillian Butt Lift and Liposuction (BBL) to several areas on July 17, [address] Zhang (fax #[phone]) in [place]. The phyisican doing procedure, will be ordering her lab work and will be forwarding it to our office. She is going to have general anesthesia. Has all her own real teeth. Has had general anesthesia in the past and tolerated well before. No complications. Patient presents for preop evaluation and surgical clearance for upcoming BBL with Dr. Zhang in [place]. He will be ordering her presurgical testing soon and she will complete when ordered. She will forward these results to our office when she completes them. All of her chronic conditions seem to be for the most part stable and well controlled. Sh is a low risk surgical candidate and she seems to be of appropriate risk for surgery for BBL; however, will await presurgical testing. Apr, Attention deficit hyperactivity disorder (ADHD), predominantly inattentive type (ICD-10 - F90.0) No suicidal or homicidal ideations. Stable with Vyvdalee. She does follow with Dr. Anderson and will continue to do so. Specialty notes not reviewed due to confidentiality. Apr, PCOS (polycystic ovarian syndrome) (ICD-10 - E28.2) She follows with her OB-DEVICE ENGINEER for this and takes Metformin and Spironolactone for this. She will continue to follow with Dr. Camacho for this. Specialty notes reviewed as received. Apr, Lumbar degenerative disc disease (ICD-10 - M51.36) Stable at this time. Has seen pain management with Dr. Choi in the past but no longer needs to follow with him as pain is resolved. Apr, Kidney stones (ICD-10 - N20.0) No recent kidney stones. Apr, Vitamin D deficiency (ICD-10 - E55.9) Stable at this time. Does not take OTC vitamin D. [facility] Other 04-26-2022 Evaluation note* Encounter Date Diagnosis Assessment Notes Treatment Notes Treatment Clinical Notes Nov, Hypoglycemia (ICD-10 - E16.2) She has been having episodes of hypoglycemia with dizziness associated with it. Is not a known diabetic and does not take any medications for diabetes. In office hgba1c today is normal. Will obtain further lab work to rule out abnormalities. Discussed that this could possibly be a type of virus causing issues as well. Avoid high carb foods, sugary foods, fast food, processed foods. Notify office should symptoms worsen or not improve. Will notify her of results when available. [facility] Other 03-08-2022 Evaluation note* Encounter Date Diagnosis Assessment Notes Treatment Notes Treatment Clinical Notes Oct, COVID-19 (ICD-10 - U07.1) Patient had covid 19 back on 09/07/21. She is completely resolved from this. She wishes to have a medical exemption so she does not have to get the covid vaccine for her upcoming cruise. I discussed with her that unfortunately I cannot write this for her. She will check with her OB-DEVICE ENGINEER to see if they are able to write a medical exemption for this. [facility] Other 01-07-2022 Evaluation note* Encounter Date Diagnosis Assessment Notes Treatment Notes Treatment Clinical Notes Sep, Contact with and (suspected) exposure to other viral communicable diseases (ICD-10 - Z20.828) COVID positive. See above treatment plan. Sep, COVID-19 (ICD-10 - U07.1) COVID test positive. No warning s/s or s/s of respiratory distress or trouble breathing. Non toxic. Rest, increase fluids. Notify office should symptoms worsen, change, or not improve. Warning s/s reviewed with patient today. Patient to go immediately to the ER should pt experience any of these. Quarantine per CDC recommendations: Stay home for 5 days. If you have no symptoms or your symptoms are resolving after 5 days, you can leave your house. Continue to wear a mask around others for 5 additional days. If you have a fever, continue to stay home until your fever resolves. Patient verbalizes understanding and agrees to treatment plan. Sep, Other Additional time spent conducting pre-visit phone call, screening for symptoms, instructions on social distancing, application and removal of PPE, and cleaning of equipment and supplies was preformed. [facility] Other 11-23-2021 Evaluation note* Encounter Date Diagnosis Assessment Notes Treatment Notes Treatment Clinical Notes Jul, Decreased renal function (ICD-10 - N28.9) [facility] Other 11-22-2021 Evaluation note* Encounter Date Diagnosis Assessment Notes Treatment Notes Treatment Clinical Notes Jul, Vision changes (ICD-10 - H53.9) No warning s/s present today. Neurologically exam is normal. She is under a very high stress level. She may be having a reaction to Spironolactone. She will stop this medication for a few days to see how she is doing. Follow up with eye doctor tabitha. Lab work ordered today to rule out abnormality. She will notify office if symptoms worsen or do not improve. Warning s/s reviewed with patient today. Patient to go immediately to the ER should pt experience any of these. Patient verbalizes understanding and agrees to treatment plan. [facility] Other 10-06-2021 Evaluation note* Encounter Date Diagnosis Assessment Notes Treatment Notes Treatment Clinical Notes Jun, Dysuria (ICD-10 - R30.0) See above treatment plan. Jun, Acute cystitis without hematuria (ICD-10 - N30.00) Urine dip and symptoms indicative of UTI. Urine culture sent. Will call with results. Will treat patient with ATB today given patient UTI symptoms and urine dip results. Keflex rx sent today. Discussed medication and possible SE of medications. Increase fluid intake. Follow hygiene guidelines such as wiping front to back, avoid using perfumed lotions, bath beads, bubble bath. Prevention tips inlcude urinating after sexual intercourse. Notify office should her symptoms not improve or persist. Warning s/s reviewed with patient. Instructed patient to go immediately to the ER should she experience any warning s/s. Patient states understanding and is in agreement of treatment plan. [facility] Other 09-07-2017 History general Narrative - Reported* Type Description Date Medical History abscess Medical History Low back ache Surgical History kidney stone Surgical History abscess on vagina Surgical History BARTHOLIN GLAND REMOVAL Surgical History ABCESS IN VAGINA 06/2017 Surgical History Bi Lateral Steroid Injection /B ack Hospitalization History childbirth Hospitalization History tonsilitis Hospitalization History kidney stones Hospitalization History BARTHOLIN CYST ABCESS 2016 [facility] Other 09-07-2017 History general Narrative - Reported* Type Description Date Medical History abscess Medical History Low back ache Surgical History kidney stone Surgical History abscess on vagina Surgical History BARTHOLIN GLAND REMOVAL Surgical History ABCESS IN VAGINA 06/2017 Surgical History Bi Lateral Steroid Injection /B ack Surgical History liposuction Hospitalization History childbirth Hospitalization History tonsilitis Hospitalization History kidney stones Hospitalization History BARTHOLIN CYST ABCESS 2016 [facility] Other Evaluation noteNo Assessments Information Available [facility] InformationNort [employer] Other Evaluation noteNo assessment information available [facility] Work Phone: Evaluation note* Diagnosis Onset Date Resolution Status Right carpal tunnel syndrome acute [facility] Work Phone: Evaluation note* Diagnosis Encounter for other general counseling or advice on contraception [facility] N[facility] No data available for this section [facility] Discharge instructionsAmbulatory Orders* Referral to Orthopedics Location: None Selected [facility] Work Phone: Progress note No data available for this section [facility] Reason for referral (narrative)* Reason * 07/14 CALL re seb to [facility] for vyvanse for adhd; currently seeing Dr. Anderson Diagnosis 1 Attention and concen tration deficit (R41.840) [facility] Referring Provider First Name Brianne Referring Provider Last Name Lola Referring Provider Specialty Nurse Jeanmarie desai Referred Organization [facility] Referred Address [address] [place], [place],[address] Referred Provider Specialty Psychiatry Referral Priority Routine General Notes Ryann Grey 10/2022 08:11:01 AM > referral received and faxed [facility] Other Rejuia for referral (narrative)No reason for referral information availableP[facility] Work Phone: Summary Purpose Family History Relationship Condition Age at Onset Recorded Date/T elian mother Anemia Unknown Venous thrombosis Unknown grandparent History of stroke Unknown Hypertension Unknown No Family History Records Found Advance Directives No Advanced Directives Records Found Advance Directive Response Recorded Date/ Time Advance Directives No April 28, 2017 11:41am Advance Directive Response Recorded Date/ Time Advance Directives No April 28, 2017 10:41am Chief Complaint and Reason for Visit Chief Complaint Z01.89 Chief Complaint Z01.89 bruise on R leg Chief Complaint F90.2 F41.1 Chief Complaint F90.2 F41.1 f90.2 f41.1 Chief Complaint possuible carpal deisy padilla Reason for Visit Right carpal tunnel syndrome Chief Complaint possuible carpal deisy padilla rash Reason for Visit Right carpal tunnel syndrome Chief Complaint Admit Date poss uti February 23, 2025 3:33 pm Chief Complaint Admit Date poss uti February 23, 2025 3:33 pm right middle finger injury March 15 1:34pm T14.90XA March 15, 2025 1:56 pm Reason for Visit Admit Date Flank pain February 23, 2025 3:33 pm Finger tendinitis March 15, 2025 1:34 pm Chief Complaint Admit Date poss uti February [...] ini tial encounter March 16, 2025 9:01am Additional Source Comments REASON FOR VISIT (unrecogniz ed section and content) Reason Comments Complications After INFORMATION SOURCE (unrecogn ized section and content) DATE CREATED AUTHOR 04/23/2022 [facility] DATE CREATED AUTHOR AUTHOR'S ORGANIZ ATION 01/04/2025 [facility] EPIC DATE CREATED AUTHOR AUTHOR'S ORGANIZ ATION 02/25/2025 [facility] DATE CREATED AUTHOR AUTHOR'S ORGANIZ ATION 02/26/2025 [facility] DATE CREATED AUTHOR AUTHOR'S ORGANIZ ATION 02/27/2025 [facility] DATE CREATED AUTHOR AUTHOR'S ORGANIZ ATION 03/05/2025 [facility] DATE CREATED AUTHOR AUTHOR'S ORGANIZ ATION 03/19/2025 [facility] Care Teams (unrecognized sec tion and content) Team Status: Inactive Member Role Status Dates Brianne Davila DNP Primary Care Provider Active Robert Zhang MD Attending Provider Active Team Status: Active Member Role Status Dates Brianne Davila DNP Primary Care Provider Active Team Status: Inactive Member Role Status Dates Brianne Davila DNP Primary Care Provider Active Norman More PA-C Emergency Provider Active Team Status: Inactive Member Role Status Dates Brianne Davila DNP Primary Care Provider Active Anthony Bond MD Attending Provider Active Team Status: Inactive Member Role Status Dates Brianne Davila DNP Primary Care Provid er, Attending Provider Active Start: March 11, 2024 End: March 11, 2024 Team Status: Inactive Member Role Status Dates Brianne Davila DNP Primary Care Provider Active Start: April 29, 2024 End: April 29, 2024 Karli Mendez PA-C Attending Provider Active St art: April 29, 2024 End: April 29, 2024 Advertising Executive Relationship Specialty Start Date End Date Brianne Davila NP PCP - General 04/01/23 Advertising Executive Relationship Specialty Start Date End Date Brianne Davila NP PCP - General 04/01/23 Team Status: Inactive Member Role Status Dates Brianne Davila DNP Primary Care Provider Active Start: February 23, 2025 End: February 23, 2025 Aydee Nieves APRN Attending Provider Active Sta rt: February 23, 2025 End: February 23, 2025 Team Status: Active Member Role Status Dates PHYSICIAN NO FAMILY Primary Care Provider Active Team Status: Inactive Member Role Status Dates Hamlet Worley APRN Attending Provider Active Start: March 15, 2025 End: March 15, 2025 PHYSICIAN NO FAMILY Primary Care Provider Active Start: March 15, 2025 End: March 15, 2025 Team Status: Active Member Role Status Dates PHYSICIAN NO FAMILY Primary Care Provider Active Start: March 15, 2025 Hamlet Worley APRN Attending Provider Active Start: March 15, 2025 Team Status: Inactive Member Role Status Dates PHYSICIAN NO FAMILY Primary Care Provider Active Start: March 15, 2025 End: March 15, 2025 Hamlet Worley APRN Attending Provider Active Start: March 15, 2025 End: March 15, 2025 Team Status: Inactive Member Role Status Dates PHYSICIAN NO FAMILY Primary Care Provider Active Start: March 16, 2025 End: March 16, 2025 Janice Escobar MD Attending Provider Active Start: March 16, 2025 End: March 16, 2025 Goals (unrecognized section and content) Goals may be documented in a n alternate section FOR RECORDS PERTAINING TO PATIENTS WHO ARE OR HAVE BEEN ENROLLED IN A CHEMICAL DEPENDENCY/SUBSTANCEABUSE PROGRAM, SOME INFORMATION MAY BE OMITTED. This clinical summary was aggregated from multiple sources. Caution should be exercised in using it in the provision of clinical care. This summary normalizes information from multiple sources, and as a consequence, information in this document may materially change the coding, format and clinical context of patient data. In addition, data may be omitted in some cases. CLINICAL DECISIONS SHOULD BE BASED ON THE PRIMARY CLINICAL RECORDS. [facility]. provides no warranty or guarantee of the accuracy or completeness of information in this document.
--- OUTSIDE RECORDS SUMMARY | 2025-03-24 14:59 | XMS_ITS | Encounter Summary ---
Author Organization [facility] Address [address] [place] [address] Care Team Providers Care Civil Division Deputy Sheriff Name Role Phone Valerio Batres DO Primary Care Provider [phone] Source Comments In the event this information is protected by the Federal Confidentiality of Alcohol and Drug AbusePatient Records regulations: The Federal rules restrict any use of the information to criminally investigate or prosecute any alcohol or drug abuse patient.[facility] Encounter Details Date Type Department Care Team (Late st Contact Info) Description 07/17/2017 Patient Msg Medical Records [address] [place] [id number] Provider, [facility] Education Program Social History Tobacco Use [...] on filedocumented in this encounter Care Teams Civil Division Deputy Sheriff Relationship Specialty Start Date End Date Valerio Batres DO PCP - General Family Medicine 05/12/17 documented as of this encounter
--- OUTSIDE RECORDS SUMMARY | 2025-03-24 14:59 | XMS_ITS | Encounter Summary ---
Author Organization [facility] Address [address] [facility] [place] [address] Care Team Providers Care Wood Gluer Name Role Phone Brianne Davila NP Primary Care Provider Encounter Details Date Type Department Care Team (Late st Contact Info) Description 03/23/[address] [facility] [address] [place] [address] Citlalli Contreras MA [address] 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
--- OUTSIDE RECORDS SUMMARY | 2025-03-24 14:59 | XMS_ITS | Encounter Summary ---
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
--- OUTSIDE RECORDS SUMMARY | 2025-03-24 14:59 | XMS_ITS | Encounter Summary ---
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
--- OUTSIDE RECORDS SUMMARY | 2025-03-24 14:59 | XMS_ITS | Continuity of Care Document ---
Author Organization [facility] Address [address] [place] [address] Phone Care Team Providers Care Insole Tack Puller Hand Name Role Phone Brianne Davila DNP Primary Care Provider Aydee Nieves APRN Attending Provider Care Teams Patient Care Team Team Status: Active Member Role Status Dates Brianne Davila DNP Primary Care Provider Active Visit Care Team Team Status: Inactive Member Role Status Dates Brianne Davila DNP Primary Care Provider Active Start: February 23, 2025 End: February 23, 2025 Aydee Nieves APRN Attending Provider Active Sta rt: February 23, 2025 End: February 23, 2025 Chief Complaint and Reason for Visit Chief Complaint Admit Date poss uti February 23, 2025 3:33 pm Allergies, Adverse Reactions, Alerts Allergen Type Severity Reaction Last Updated Verified Status minocycline Allergy Unknown Hives April 29, 2024 12:44pm Yes Active sulfamethoxazole Allergy Unknown Hives April 022023 12:44pm Yes Active trimethoprim Allergy Unknown Hives April 29, 2024 12:44pm Yes Active Sulfa (Sulfonamide Antibiotics) Allergy Unknown Unknown Reaction April 29, 2024 12:44pm Yes Active Social History Smoking Status Status [...] Unknown Active Obese body habitus Unknown Active Inactive/Resolved Problems Medical Problem Onset [...] 500 MG PO Three times daily 30 10 2016 12:00a m [facility] 2016 12:00 am [facility] 2016 6:54a m space evenly during waking hours Hydrocodone -Acetaminop hen (Avenue) 5-325 mg tablet Discont inued 1 TAB PO every 6 to 8 hours as needed for pain 20 2016 2016 11:17 am Amoxicillin -Pot Clavulanate (Augmentin) 875-125 mg tablet Discont inued 1 TAB PO Twice daily 20 10 2016 12:00a m [facility] 2016 11:17 am Oxycodone-A cetaminophe n (Percocet) 5-325 mg tablet Discont inued 1 TAB PO EVERY 4-6 HOURS as needed for pain 20 2016 12:00a m [facility] 2016 11:17 am Etonogestre l (Nexplanon) 68 mg [...] inued 500 MG PO Twice daily 28 14 2016 12:00a [facility] 12:[facility] 2016 12:02 am Cephalexin (Keflex) 500 mg capsule Discont inued 500 MG PO Q8H 42 14 December 29, 2017 12:00a m January 11, 2018 12:00 am January 07, 2018 10:04 am Norgestimat e-Ethinyl Estradiol 0.25-35 mg-mcg tablet Discont inued 1 TAB PO Daily May 01, 2020 12:00a m January 13, 2023 8:43a m Spironolact one 50 mg tablet Active 50 MG PO Daily May 01, 2020 12:00a m Complies with drug therapy Buspirone 15 mg tablet Discont inued 15 MG PO Twice daily May 01, 2020 12:00a m February 23, 2025 3:37p m Lisdexamfet amine (Vyvanse) 60 mg capsule Active 60 MG PO Daily May 01, 2020 12:00a m Complies with drug therapy Phentermine (Adipex-P) 37.5 mg Capsule Discont inued 37.5 MG PO daily December 07, 2017 12:00a m January 15, 2019 11:34 am Cephalexin (Keflex) 500 mg capsule Discont inued 1000 MG PO Twice daily 40 10 December 07, 2017 12:00a m 2017 12:00 am December 17, 2017 12:01 am Hydrocodone -Acetaminop hen (Avenue) 5-325 mg tablet Discont inued 1 - [...] Discont inued 500 MG PO Twice daily January 13, 2023 12:00a m Febru wanda 2023 1:58p m Cyclobenzap rine 10 mg tablet Discont inued 10 MG PO Three times daily as needed for Muscle Spasm November 10, 2023 12:00a m November 21, 2023 9:37a m Ibuprofen 800 mg tablet Active 800 MG PO Three times daily as needed for Pain November 10, 2023 12:00a m Complies with drug therapy Semaglutide (Weight Loss) (Wegovy) 0.5 mg/0.5 mL pen injector Active 0.5 MG SUBCUT every week April 29, 2024 12:00a m administer weeks 5 through 8 of therapy Complies with drug therapy Cephalexin 500 mg capsule Active 500 MG PO Three times daily 21 03April 29, 2024 12:00a m Complies with drug therapy Penicillin V Potassium 500 mg tablet Discont inued 500 MG PO Twice daily 2023 1:00am November 10, 2023 10:18 pm Cephalexin 500 mg capsule Discont inued 500 MG PO Every 12 hours 2023 1:00am November 10, 2023 10:18 pm Immunizations Immunization Event Date Not Given Reason Dose Number Supervisor Records Change Lot Number Vaccine Information Statement (VIS) Detail Administration Location Human Papillomavirus Vaccine, quadrivalent September 11, 2009 Human Papillomavirus Vaccine, quadrivalent November 13, 2009 Human Papillomavirus Vaccine, quadrivalent March 21, 2010 Relevant Diagnostic Tests and/or Laboratory Data Laboratory Results Test Collection Date/Time Result Date/Time Result Interpretation Reference Range Result Comment Performing Site Urine Color February 23, 2025 3:40pm February 23, 2025 3:54pm RADHA Urine Appearance February 23, 2025 3:40pm February 23, 2025 3:54pm DARK Urine Specific [place] February 23, 2025 3:40pm February 23, 2025 [...] 2025 3:40pm February 23, 2025 3:54pm TRACE Vital Signs Vital Reading Result Reference Range Collection Date/Time Body Temperature 100.1 [degF] 97.6-99.0 February 23, 2025 4:23pm Heart Rate 95 /min 60-100 February 23, 2025 3:43pm Oxygen saturation by Pulse oximetry 98 % 95-100 February 23, 2025 3:43 pm BP Systolic 126 mm[Hg] 100-140 February 23, 2025 3:43pm BP Diastolic 80 mm[Hg] 60-100 February 23, 2025 3:43pm Advance Directives Advance Directive Response Recorded Date/ Time Advance Directives No April 28, 2017 11:41am Insurance Providers Guarantor Nan Alcocer Address [address] [facility] [address] Contact Info. Home Phone: Payer Policy Id Subscriber's Name Subscriber Id Effectiv e Date Expiration Date MMO [id number] Nan Alcocer [id number] [employer] [id number] Nan Alcocer [id number] [employer] [id number] Nan Alcocer [id number] HCAP/HFA/FAP Active [id number] Nan Alcocer [id number] 2019 Encounters Encounter Location(s) Arrival/Admit Date Discharge/Depart Date Provider(s) Departed Physician/Prov ider Office Visit -[facility] February 23, 2025 3:33pm February 23, 2025 4:22pm Kat Taylor FIBER LOCKING SUPERVISOR Plan of Treatment Author Aydee Nieves [facility] Authored February 23, 2025 4:27 pm concern for pyelo? stone? hx of stone, hx of hospitalization for kidney infection plans to go to [facility] for further eval Future Tests Future scheduled test information is unavailable Pending Tests Pending diagnostic test information is unavailable Future Visits Future appointment information is unavailable Referrals to Other Providers Referral information is unavailable Future Procedures Future procedure information is unavailable Future Medications Future medication information is unavailable Patient Instructions Patient instructions are unavailable
--- OUTSIDE RECORDS SUMMARY | 2025-03-24 14:59 | XMS_ITS | Clinical Summary ---
Author Organization [facility] Address [address] [place] [address] Care Team Providers Care Edgerman Name Role Phone GiselValerio Timothy DANG Primary Care Provider Allergies Active Allergy Reactions Criticality Noted Date [...] (05/12/2017): Added automatically from request for surgery [id number] Social History Tobacco Use Types Packs/Day Years [...] is lower risk 6 03/15/2025 Data from: [email or web address] Last address used for calculation [address] 03/15/2025 Comments No Sex and Gender [...] Screening 12/17/2011 Influenza Vaccine (#1) 2025 Insurance [facility] [employer] Care Teams Edgerman Relationship Specialty Start Date End Date Valerio Batres DO PCP - General Family Medicine 05/12/17
--- OUTSIDE RECORDS SUMMARY | 2025-03-24 14:59 | XMS_ITS | Encounter Summary ---
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
--- OUTSIDE RECORDS SUMMARY | 2025-03-24 14:59 | XMS_ITS | Encounter Summary ---
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
--- OUTSIDE RECORDS SUMMARY | 2025-03-24 14:59 | XMS_ITS | Encounter Summary ---
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
--- OUTSIDE RECORDS SUMMARY | 2025-03-24 14:59 | XMS_ITS | Encounter Summary ---
Author Organization [facility] Address [address] [facility] [address] Care Team Providers Care Acid Patroller Name Role Phone Brianne Davila GAUGER CHIEF DELIVERY Primary Care Provider [phone] Encounter Details Date Type Department Care Team (Late st Contact Info) Description 08/10/2024 Abstract [facility] OB [address] 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
--- OUTSIDE RECORDS SUMMARY | 2025-03-24 14:59 | XMS_ITS | Encounter Summary ---
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
--- OUTSIDE RECORDS SUMMARY | 2025-03-24 14:59 | XMS_ITS | Encounter Summary ---
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
--- OUTSIDE RECORDS SUMMARY | 2025-03-24 14:59 | XMS_ITS | Clinical Summary ---
Author Organization [facility] Healthcare Address [address] [place] [address] Care Team Providers Care Real Estate Agent Name Role Phone Brianne Davila NP Primary Care Provider [phone] Allergies Active Allergy Reactions Criticality Noted Date [...] Problem Noted Date Diagnosed Date Anemia affecting ([facility]) 03/31/2023 Candidiasis 03/31/2023 Cervical strain 03/31/2023 Chronic otitis externa of left ear 03/31/2023 Dichorionic diamniotic twin in second trimester ([facility]) 03/31/2023 Irregular menstrual cycle 03/31/2023 Lumbosacral strain 03/31/2023 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 Myopia of both eyes 03/31/2023 Weight gain Encounters Date Type Department Care Team Description 03/23/2025 Telephone [facility] [address] [place] [address] Citlalli Contreras MA 03/01/2025 Abstract [facility] [address] [place] [address] Darcie Jimenez, GREGG 03/01/[address] [facility] [address] [place] [address] Zaki Camacho, 03/01/2025 Orders Only [facility] [address] [place] [address] Zaki Camacho, Encounter for long-term (current) use of medications 02/04/2025 Abstract [facility] [address] [place] [address] Zaki Camacho, 02/02/[address] [facility] [address] [place] [address] Zaki Camacho, 01/11/2025 Abstract [facility] [address] [place] [address] Darcie Jimenez, GREGG 01/11/[address] [facility] [address] [place] [address] Zaki Camacho, 12/30/2024 10:20 AM EDT Office Visit [facility] [address] [place] [address] Zaki Camacho, DO Encounter for other general counseling or advice on contraception 12/30/2024 Bamboo flowsheet [facility] [address] [facility] [place] [address] Zaki Camacho [...] Industry 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
--- OUTSIDE RECORDS SUMMARY | 2025-03-24 14:59 | XMS_ITS | Encounter Summary ---
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 on file Not on file Not on file documented as of this encounter Plan of Treatment Upcoming Encounters Date Type Department Care Team (Late st Contact Info) Description 04/18/2025 11:00 AM EDT Office Visit [facility] [address] [place] [address] Zaki Camacho DO [facility] [place], [place] [id number] documented as of this encounter Visit Diagnoses Not on filedocumented in this encounter Care Teams Driver Engineer Relationship Specialty Start Date End Date Brianne Davila, CANDY STARCH MOLD PRINTER PCP - General 04/01/23 documented as of this encounter
[2025-03-24 15:25] LABS: Alanine Aminotransferase 27 U/L (14-59); Albumin Globulin Ratio 0.9; Albumin Level 3.3 g/dL (3.4-5.0); Alkaline Phosphatase 74 U/L (46-116); Anion Gap 9.6; Aspartate Amino Transferase 14 U/L (15-37); Blood Urea Nitrogen 8.0 mg/dL (7.0-18.0); Calcium 8.4 mg/dL (8.5-10.1); Carbon Dioxide 29.6 mmol/L (21.0-32.0); Chloride 104 mmol/L (98-107); Estimated GFR (African America >60 (>=60 mL/min/1.73m^2); Estimated GFR (Non-African Ame >60 (>=60 mL/min/1.73m^2); Globulin 3.5 g/dL; Glucose 94 mg/dL (74-106); Potassium 4.2 mmol/L (3.5-5.1); Sodium 139 mmol/L (136-145); Total Protein 6.8 g/dL (6.4-8.2)
== END 2025-03-24 14:58 | disposition home or self-care (01) ==
LOC: LAB 14:57
PROVIDERS: Visit Provider Obstetrics & Gynecology
DX: Z79.899 Other long term (current) drug therapy (principal)
CPT/HCPCS: 36415; 80053

== ENCOUNTER 2025-04-18 15:51 | Outpatient (REF) | payer OTHER, SELFPAY ==
[2025-04-20 09:08] LABS: Age Gdln ACOG Testing Note (.); IGP, Aptima HPV, rfx 16/18,45 Note (.)
== END 2025-04-18 15:52 | disposition home or self-care (01) ==
LOC: LAB 15:51
PROVIDERS: Visit Provider Obstetrics & Gynecology
DX: Z01.419 Encounter for gynecological examination (general) (routine) without abnormal findings (principal)
CPT/HCPCS: 87624; 88175